=== PATIENT | female | born 1960 | race Caucasian/White ===

== ENCOUNTER 2020-07-03 07:01 | Day surgery (SDC) | payer OTHER, SELFPAY ==
[2020-06-27 16:58] VITALS: BMI 30.7
--- NOTE | 2020-07-02 08:55 | HO.ANESPROP2 ---
Documented by User: Qing Del Castillo 07/02/20 08:56 HPI - Anesthesia Eval Consult details Narrative: 60yo F for Colonoscopy PMFSH Past Medical History Medical History Asthma Environmental allergies GERD (gastroesophageal reflux disease) Hepatitis C antibody test positive IBS (irritable bowel syndrome) Nephrolithiasis Surgical History Surgical History H/O lithotripsy History of esophagogastroduodenoscopy (EGD) Hx laparoscopic cholecystectomy Hx of section Hx of colonoscopy Hx of dilation and curettage Hx of right knee surgery Social History Social History Smoking Status: Former smoker Smoking Quit Date: 1989 Use of substances other than those prescribed or required for medical reasons: No Advance Directives: No Advance Directives Information Provided: No Advance Directives on File: No Meds Allergies Allergy/AdvReac Type Severity Reaction Status Date / Time cefaclor [From Ceclor] Allergy Hives Verified 07/03/20 07:10 codeine Allergy Nausea and Verified 07/03/20 07:10 Vomiting erythromycin base Allergy Hives Verified 07/03/20 07:10 gentamicin Allergy Hives Verified 07/03/20 07:10 moxifloxacin [From Avelox] Allergy Hives Verified 07/03/20 07:10 sulfamethoxazole Allergy Hives Verified 07/03/20 07:10 [From Bactrim] trimethoprim [From Bactrim] Allergy Hives Verified 07/03/20 07:10 Home Medications Medication Instructions Recorded Confirmed Last Taken Type albuterol sulfate 1 - 2 puff PO Q4-6H PRN 06/27/20 06/27/20 Unknown History amlodipine 1 tab PO BEDTIME 06/27/20 06/27/20 07/03/20 05:30 History cetirizine [Zyrtec] 10 mg PO DAILY 06/27/20 06/27/20 07/03/20 05:30 History cholecalciferol (vitamin D3) 50 mcg PO DAILY 06/27/20 06/27/20 Unknown History [Vitamin D3] epinephrine IM DIRECTED 06/27/20 Unknown History fluticasone propionate [Flonase] 1 spray INTRANASAL DAILY 06/27/20 06/27/20 Unknown History hydrochlorothiazide 1 tab PO DAILY 06/27/20 06/27/20 Unknown History losartan 1 tab PO DAILY 06/27/20 06/27/20 Unknown History multivitamin 1 tab PO DAILY 06/27/20 06/27/20 Unknown History omeprazole 1 cap PO DAILY 06/27/20 06/27/20 07/03/20 05:30 History potassium citrate 10 meq PO TID 06/27/20 06/27/20 Unknown History Exam Exam Date and Time: July 02, 2020 0855 Height,Weight and Vital Signs: Height 5 ft 6 in Weight 86.183 kg Assessment and Plan Assessment Anesthesia Assessment: Chart Reviewed Documented by User: Paxton Cook 07/03/20 07:32 [facility] Past Medical History Medical History Asthma Environmental allergies GERD (gastroesophageal reflux disease) Hepatitis C antibody test positive IBS (irritable bowel syndrome) Nephrolithiasis Surgical History Surgical History H/O lithotripsy History of esophagogastroduodenoscopy (EGD) Hx laparoscopic cholecystectomy Hx of section Hx of colonoscopy Hx of dilation and curettage Hx of right knee surgery Social History Social History Smoking Status: Former smoker Smoking Quit Date: 1989 Use of substances other than those prescribed or required for medical reasons: No Advance Directives: No Advance Directives Information Provided: No Advance Directives on File: No Meds Allergies Allergy/AdvReac Type Severity Reaction Status Date / Time cefaclor [From Ceclor] Allergy Hives Verified 07/03/20 07:10 codeine Allergy Nausea and Verified 07/03/20 07:10 Vomiting erythromycin base Allergy Hives Verified 07/03/20 07:10 gentamicin Allergy Hives Verified 07/03/20 07:10 moxifloxacin [From Avelox] Allergy Hives Verified 07/03/20 07:10 sulfamethoxazole Allergy Hives Verified 07/03/20 07:10 [From Bactrim] trimethoprim [From Bactrim] Allergy Hives Verified 07/03/20 07:10 Home Medications Medication Instructions Recorded Confirmed Last Taken Type albuterol sulfate 1 - 2 puff PO Q4-6H PRN 06/27/20 06/27/20 Unknown History amlodipine 1 tab PO BEDTIME 06/27/20 06/27/20 07/03/20 05:30 History cetirizine [Zyrtec] 10 mg PO DAILY 06/27/20 06/27/20 07/03/20 05:30 History cholecalciferol (vitamin D3) 50 mcg PO DAILY 06/27/20 06/27/20 Unknown History [Vitamin D3] epinephrine IM DIRECTED 06/27/20 Unknown History fluticasone propionate [Flonase] 1 spray INTRANASAL DAILY 06/27/20 06/27/20 Unknown History hydrochlorothiazide 1 tab PO DAILY 06/27/20 06/27/20 Unknown History losartan 1 tab PO DAILY 06/27/20 06/27/20 Unknown History multivitamin 1 tab PO DAILY 06/27/20 06/27/20 Unknown History omeprazole 1 cap PO DAILY 06/27/20 06/27/20 07/03/20 05:30 History potassium citrate 10 meq PO TID 06/27/20 06/27/20 Unknown History Exam Airway Mallampati Class: I TM Dist: >3cm Neck ROM: Full
[2020-07-03 07:25] VITALS: BP 139/87; PULSE 90; RESP 18; TEMP 36.1; O2SAT 94
[2020-07-03] MEDS: Lactated Ringers 1,000 ML 100 ML IVCONT (07:38)
--- NOTE | 2020-07-03 08:05 | MHC.SHP ---
Pre-Procedural Eval Section B Chief Complaint: screening Details of Present Illness: screening Relevant Family History (Specify if Yes): Yes Relevant Social History: None Present Medications: see Short Stay Collaborative assessment Medical History: No relevant PMH History of Previous Operations: No relevant previous surgery Allergies: Allergies Allergy/AdvReac Type Severity Reaction Status Date / Time cefaclor [From Ceclor] Allergy Hives Verified 07/03/20 07:10 codeine Allergy Nausea and Verified 07/03/20 07:10 Vomiting erythromycin base Allergy Hives Verified 07/03/20 07:10 gentamicin Allergy Hives Verified 07/03/20 07:10 moxifloxacin [From Avelox] Allergy Hives Verified 07/03/20 07:10 sulfamethoxazole Allergy Hives Verified 07/03/20 07:10 [From Bactrim] trimethoprim [From Bactrim] Allergy Hives Verified 07/03/20 07:10 Review of Systems Sugical H&P ROS: Negative: Constitution, Cardiovascular, Respiratory, Neurological, Psychiatric, Hem-Onc, Allergic/Immunologic, Gastrointestinal, Genitourinary, Musculoskeletal, Integumentary, Endocrine and Eyes/Ears/Nose/Throat Exam Surgical H&P Exam: Normal: HEENT, Normal: Heart, Normal: Lungs, Normal: Extremities, Normal: Abdomen, Normal: Skin and Normal: Neurological Plan Diagnosis/Plan: Unchanged I have reviewed the history and physical and performed a pertinent physical examination on my patient. No changes have occurred unless specified.
[2020-07-03 08:41] VITALS: BP 107/65; PULSE 70; RESP 14; TEMP 36.7; O2SAT 97
--- NOTE | 2020-07-03 08:44 | PM.OP ---
Brief Operative Note Date of Service: 07/03/20 Pre-op diagnosis: screening Post-op diagnosis: same (colon polyp) Procedure: colonoscopy Surgeon: Fernando Poole Estimated blood loss (mL): 2 Pathology: other (polyp 20 cm) Condition: stable Disposition: PACU
[2020-07-03 08:56] VITALS: BP 129/79; PULSE 71; RESP 16; O2SAT 98
[2020-07-03 09:04] VITALS: BP 125/82; PULSE 74; RESP 16; O2SAT 99
--- NOTE | 2020-07-03 12:31 | OP_ITS ---
cc: Demetria Rivera MD~ SURGEON: Fernando Poole MD INDICATIONS: Colon cancer screening and prior history of adenomatous colon polyps. PREOPERATIVE DIAGNOSIS: POSTOPERATIVE DIAGNOSIS: PROCEDURE PERFORMED: Colonoscopy to the terminal ileum with biopsy. ESTIMATED BLOOD LOSS: COMPLICATIONS: ANESTHESIA: ASSISTANTS: SPECIMENS: MEDICATIONS: Monitored anesthesia care. DESCRIPTION OF PROCEDURE: History and physical performed. The risks and benefits of the procedure were explained to the patient. Informed consent was obtained. The patient was placed in the left lateral decubitus position. A digital rectal exam was performed and was found to be normal. The Olympus pediatric video colonoscope was introduced into the rectum and advanced to the cecum without difficulty. The cecum was identified by transillumination, palpation, and identification of ileocecal valve. Examination was performed and the scope was removed. She tolerated the procedure well and was taken to recovery area in stable condition. FINDINGS: The terminal ileum was examined and appeared normal. The visualized colonic mucosa was normal. The quality of the prep was good. At 20 cm from the anal verge, was a less than 5 mm polyp, which was removed with biopsy forceps. No other polyps were identified. Retroflexed examination showed small internal hemorrhoids and some hypertrophic anal papillae. IMPRESSION: Colon polyp. RECOMMENDATIONS: Follow up biopsy results. MD ABIODUN Luque/MODL / [id number] MTDD
== END 2020-07-03 09:30 | disposition home or self-care (01) ==
PROVIDERS: Internal Medicine Gastroenterology; PCP Internal Medicine; Visit Provider Anesthesiology
PROC: 0DJD8ZZ Inspection of Lower Intestinal Tract, Via Natural or Artificial Opening Endoscopic (ICD-10-PCS; CPT 45378; principal; 2020-07-03 08:00)
DX: Z12.11 Encounter for screening for malignant neoplasm of colon (principal); Z86.010 Personal history of colon polyps; K63.5 Polyp of colon; K64.8 Other hemorrhoids; K62.89 Other specified diseases of anus and rectum; K21.9 Gastro-esophageal reflux disease without esophagitis; K58.9 Irritable bowel syndrome, unspecified; J45.909 Unspecified asthma, uncomplicated; Z79.51 Long term (current) use of inhaled steroids; Z79.899 Other long term (current) drug therapy; Z88.2 Allergy status to sulfonamides; Z88.8 Allergy status to other drugs, medicaments and biological substances; Z90.49 Acquired absence of other specified parts of digestive tract; Z87.442 Personal history of urinary calculi; Z87.891 Personal history of nicotine dependence
CPT/HCPCS: 45380; 88305

== ENCOUNTER 2023-10-16 09:02 | Outpatient (REF) | payer OTHER, SELFPAY ==
--- NOTE | ~2023-10-16 | US_ITS ---
EXAMINATION: US ABDOMEN COMPLETE CLINICAL INFORMATION: Right upper quadrant pain. COMPARISON: Ultrasound abdomen complete 07/23/2018. TECHNIQUE: Real-time imaging of the abdominal viscera. FINDINGS: PANCREAS: The pancreas appears unremarkable, without masses or ductal dilatation, with the exception of the tail which is obscured by bowel gas. ABDOMINAL AORTA: The proximal, mid, and distal segments are normal in caliber. INFERIOR VENA CAVA: Visualized portions are normal. LIVER: The liver is normal in size. The liver contour is normal. There is diffuse increased liver parenchymal echogenicity, consistent with hepatic steatosis. No focal hepatic lesion. There is no intrahepatic biliary duct dilatation seen. GALLBLADDER: Surgically absent. COMMON BILE DUCT: Normal in caliber measuring 0.7 cm in diameter. RIGHT KIDNEY: Two echogenic foci are noted in the mid and lower pole measuring 4 and 2 mm, respectively, consistent with nonobstructing calculi. No hydronephrosis or focal parenchymal lesions. The kidney measures 12.5 cm in maximum dimension. LEFT KIDNEY: An echogenic mid and lower pole foci are noted measuring 5 and 4 mm consistent with nonobstructing calculi. No hydronephrosis or focal parenchymal lesions. The kidney measures 11.2 cm in maximum dimension. SPLEEN: Normal. The spleen measures 10.7 cm in maximum dimension. FREE FLUID: None. US/US abdomen complete IMPRESSION: 1. Hepatic steatosis. 2. Bilateral nonobstructing renal calculi.
== END 2023-10-16 09:03 | disposition home or self-care (01) ==
LOC: HO.US 09:02
PROVIDERS: PCP Physician Assistant Medical; Visit Provider Physician Assistant Medical
DX: R10.11 Right upper quadrant pain (principal); R14.0 Abdominal distension (gaseous)
CPT/HCPCS: 76700

== ENCOUNTER 2024-01-19 11:25 | Outpatient (REF) | payer OTHER, SELFPAY ==
[2024-01-19 14:00] LABS: Alanine Aminotransferase 17 U/L (0-31); Albumin Level 4.5 g/dL (3.5-5.0); Alkaline Phosphatase 68 U/L (39-117); Aspartate Amino Transferase 16 U/L (5-31); Bilirubin Direct 0.2 mg/dL (0.0-0.5); Total Protein 7.3 g/dL (6.5-8.0)
[2024-01-27 03:44] LABS: FIB-ALT 16 U/L (6-29); FIB-Alpha-2-Macroglobulin 166 mg/dL (106-279); FIB-Apolipoprotein A1 211 mg/dL (101-198); FIB-GGT 27 U/L (3-65); FIB-Haptoglobin 106 mg/dL (43-212); FIB-Total Bilirubin 0.9 mg/dL (0.2-1.2); Liver Fibrosis Score 0.14; Liver Fibrosis Stage F0; Nec Inflam Act Grade A0; Nec Inflam Act Score 0.04
== END 2024-01-19 11:26 | disposition home or self-care (01) ==
LOC: HO.10HDL 11:25
PROVIDERS: Visit Provider Internal Medicine Gastroenterology
DX: K76.0 Fatty (change of) liver, not elsewhere classified (principal)
CPT/HCPCS: 36415; 80076; 81596

== ENCOUNTER 2024-03-01 07:28 | Day surgery (SDC) | payer OTHER, SELFPAY ==
[2024-02-26 14:22] VITALS: BMI 32.6
--- NOTE | 2024-02-29 13:27 | P.CONAN_ITS ---
Documented by User: Qing Del Castillo NP 02/29/24 13:27 HPI - Anesthesia Eval Consult details Narrative: 63yo F for ?Upper Endoscopy [facility] Past Medical History Medical History Arrhythmia Celiac disease Sleep apnea HTN (hypertension) Venous (peripheral) insufficiency Asthma Hepatitis C antibody test positive Nephrolithiasis GERD (gastroesophageal reflux disease) IBS (irritable bowel syndrome) Environmental allergies Surgical History Surgical History Status post phlebectomy H/O lithotripsy Hx laparoscopic cholecystectomy Hx of right knee surgery Hx of dilation and curettage Hx of section Hx of colonoscopy History of esophagogastroduodenoscopy (EGD) Social History Social History Patient Tobacco Use Status: Former Tobacco user Tobacco use type: Cigarette Use of substances other than those prescribed or required for medical reasons: No Are you DNR?: No Advance Directives: No Advance Directives Information Provided: Yes Advance Directives on File: No Recently lost weight without trying: No Nutrition Risks: No Nutritional Risk Patient : No Meds Allergies Allergy/AdvReac Type Severity Reaction Status Date / Time cefaclor [From Ceclor] Allergy Hives Verified 07/03/20 07:10 codeine Allergy Nausea and Verified 07/03/20 07:10 Vomiting erythromycin base Allergy Hives Verified 07/03/20 07:10 gentamicin Allergy Hives Verified 07/03/20 07:10 moxifloxacin [From Avelox] Allergy Hives Verified 07/03/20 07:10 sulfamethoxazole Allergy Hives Verified 07/03/20 07:10 [From Bactrim] trimethoprim [From Bactrim] Allergy Hives Verified 07/03/20 07:10 Home Medications ?Medication ?Instructions ?Recorded ?Confirmed ?Last Taken ?Type amlodipine 5 mg tablet 1 tab PO DAILY 06/27/20 02/26/24 03/01/24 History cetirizine 10 mg capsule (Zyrtec) 10 mg PO DAILY 06/27/20 02/26/24 07/03/20 05:30 History epinephrine 0.3 mg/0.3 mL IM DIRECTED anaphylaxis 06/27/20 Unknown History injection, auto-injector fluticasone propionate 50 1 spray intranasal DAILY 06/27/20 02/26/24 Unknown His tory mcg/actuation nasal spray,suspension hydrochlorothiazide 25 mg tablet 1 tab PO DAILY 06/27/20 02/26/24 Unknown History multivitamin 1 tab PO DAILY 06/27/20 02/26/24 Unknown History omeprazole 20 mg capsule,delayed 1 cap PO DAILY 06/27/20 02/26/24 03/01/24 History release potassium citrate 10 mEq (1,080 10 meq PO DAILY 06/27/20 02/26/24 Unknown History mg) tablet,extended release Lactobacillus acidophilus 250 500 mmu cells PO TID 02/26/24 02/26/24 Unknown History million cell capsule (Probiotic Acidophilus) cetirizine 10 mg tablet (Zyrtec) 10 mg PO DAILY 02/26/24 02/26/24 03/01/24 History cholecalciferol (vitamin D3) 25 25 mcg PO DAILY 02/26/24 02/26/24 Unknown History mcg (1,000 unit) tablet (Vitamin D3) losartan 25 mg tablet 25 mg PO DAILY 02/26/24 02/26/24 Unknown History Exam Height,Weight and Vital Signs: Height 5 ft 6 in Weight 91.626 kg Assessment and Plan Assessment Anesthesia Assessment: Chart Reviewed Documented by User: Nancy Solis MD 03/01/24 09:10 [facility] Past Medical History Medical History Arrhythmia Celiac disease Sleep apnea HTN (hypertension) Venous (peripheral) insufficiency Asthma Hepatitis C antibody test positive Nephrolithiasis GERD (gastroesophageal reflux disease) IBS (irritable bowel syndrome) Environmental allergies Family History Family history of problems with anesthesia: No Surgical History Surgical History Status post phlebectomy H/O lithotripsy Hx laparoscopic cholecystectomy Hx of right knee surgery Hx of dilation and curettage Hx of section Hx of colonoscopy History of esophagogastroduodenoscopy (EGD) History of Problems with Anesthesia: Yes Social History Social History Patient Tobacco Use Status: Former Tobacco user Tobacco use type: Cigarette Use of substances other than those prescribed or required for medical reasons: No Are you DNR?: No Advance Directives: No Advance Directives Information Provided: Yes Advance Directives on File: No Recently lost weight without trying: No Nutrition Risks: No Nutritional Risk Patient : No Meds Allergies Allergy/AdvReac Type Severity Reaction Status Date / Time cefaclor [From Ceclor] Allergy Hives Verified 07/03/20 07:10 codeine Allergy Nausea and Verified 07/03/20 07:10 Vomiting erythromycin base Allergy Hives Verified 07/03/20 07:10 gentamicin Allergy Hives Verified 07/03/20 07:10 moxifloxacin [From Avelox] Allergy Hives Verified 07/03/20 07:10 sulfamethoxazole Allergy Hives Verified 07/03/20 07:10 [From Bactrim] trimethoprim [From Bactrim] Allergy Hives Verified 07/03/20 07:10 Home Medications ?Medication ?Instructions ?Recorded ?Confirmed ?Last Taken ?Type amlodipine 5 mg tablet 1 tab PO DAILY 06/27/20 02/26/24 03/01/24 History cetirizine 10 mg capsule (Zyrtec) 10 mg PO DAILY 06/27/20 02/26/24 07/03/20 05:30 History epinephrine 0.3 mg/0.3 mL IM DIRECTED anaphylaxis 06/27/20 Unknown History injection, auto-injector fluticasone propionate 50 1 spray intranasal DAILY 06/27/20 02/26/24 Unknown History mcg/actuation nasal spray,suspension hydrochlorothiazide 25 mg tablet 1 tab PO DAILY 06/27/20 02/26/24 Unknown History multivitamin 1 tab PO DAILY 06/27/20 02/26/24 Unknown History omeprazole 20 mg capsule,delayed 1 cap PO DAILY 06/27/20 02/26/24 03/01/24 History release potassium citrate 10 mEq (1,080 10 meq PO DAILY 06/27/20 02/26/24 Unknown History mg) tablet,extended release Lactobacillus acidophilus 250 500 mmu cells PO TID 02/26/24 02/26/24 Unknown History million cell capsule (Probiotic Acidophilus) cetirizine 10 mg tablet (Zyrtec) 10 mg PO DAILY 02/26/24 02/26/24 03/01/24 History cholecalciferol (vitamin D3) 25 25 mcg PO DAILY 02/26/24 02/26/24 Unknown History mcg (1,000 unit) tablet (Vitamin D3) losartan 25 mg tablet 25 mg PO DAILY 02/26/24 02/26/24 Unknown History Exam Airway Mallampati Class: II TM Dist: >3cm Neck ROM: Full Heart: rrr Lungs: cta Assessment and Plan Assessment Anesthesia Assessment: Anesthesia Plan Discussed Final Anesthetic Review Family History of Problems with Anesthesia: No History of Problems with Anesthesia: Yes ASA Class: III Final Preanesthetic Review: No Changes in Pt Med Stat, Meds/Allgs Chart Reviewed, Consent Obtained/Reviewed and Anes Risks/Benef Reviewed Patient Risk: Intermediate Procedure Risk: Low Anesthetic Plan Anesthetic Plan: MAC: Disposition: Standard PACU
[2024-03-01 08:05] VITALS: BMI 33.3
[2024-03-01 08:07] VITALS: BP 145/88; PULSE 82; RESP 16; TEMP 37; O2SAT 94
[2024-03-01] MEDS: Lactated Ringers 1,000 ML 100 ML IVCONT (08:22)
--- NOTE | 2024-03-01 09:07 | MHC.SHP ---
Pre-Procedural Eval Section A - 24 Hr Update-Section A only Date of Service: 03/01/24 Section B - Complete if H&P > 30 days Chief Complaint: Celiac disease Details of Present Illness: see H&P no changes Relevant Family History (Specify if Yes): No Relevant Social History: None Present Medications: see Short Stay Collaborative assessment Medical History: No relevant PMH History of Previous Operations: No relevant previous surgery Allergies: Allergies Allergy/AdvReac Type Severity Reaction Status Date / Time cefaclor [From Ceclor] Allergy Hives Verified 07/03/20 07:10 codeine Allergy Nausea and Verified 07/03/20 07:10 Vomiting erythromycin base Allergy Hives Verified 07/03/20 07:10 gentamicin Allergy Hives Verified 07/03/20 07:10 moxifloxacin [From Avelox] Allergy Hives Verified 07/03/20 07:10 sulfamethoxazole Allergy Hives Verified 07/03/20 07:10 [From Bactrim] trimethoprim [From Bactrim] Allergy Hives Verified 07/03/20 07:10 Review of Systems Sugical H&P ROS: Negative: Constitution, Cardiovascular, Respiratory, Neurological, Psychiatric, Hem-Onc, Allergic/Immunologic, Gastrointestinal, Genitourinary, Musculoskeletal, Integumentary, Endocrine and Eyes/Ears/Nose/Throat Exam Surgical H&P Exam: Normal: HEENT, Normal: Heart, Normal: Lungs, Normal: Extremities, Normal: Abdomen, Normal: Skin and Normal: Neurological Plan Diagnosis/Plan: Unchanged I have reviewed the history and physical and performed a pertinent physical examination on my patient. No changes have occurred unless specified. Time Spent With Patient Time: Total time managing care of this patient today ____ minutes.
[2024-03-01 09:40] VITALS: BP 139/83; PULSE 82; RESP 16; TEMP 36.6; O2SAT 98
[2024-03-01 09:58] VITALS: BP 130/82; PULSE 78; RESP 16; TEMP 36.6; O2SAT 100
--- NOTE | 2024-03-01 09:59 | HO.ANESPROP2 ---
[facility] Past Medical History Medical History Arrhythmia Celiac disease Sleep apnea HTN (hypertension) Venous (peripheral) insufficiency Asthma Hepatitis C antibody test positive Nephrolithiasis GERD (gastroesophageal reflux disease) IBS (irritable bowel syndrome) Environmental allergies Family History Family history of problems with anesthesia: No Surgical History Surgical History Status post phlebectomy H/O lithotripsy Hx laparoscopic cholecystectomy Hx of right knee surgery Hx of dilation and curettage Hx of section Hx of colonoscopy History of esophagogastroduodenoscopy (EGD) History of Problems with Anesthesia: Yes Social History Social History Patient Tobacco Use Status: Former Tobacco user Tobacco use type: Cigarette Use of substances other than those prescribed or required for medical reasons: No Are you DNR?: No Advance Directives: No Advance Directives Information Provided: Yes Advance Directives on File: No Recently lost weight without trying: No Nutrition Risks: No Nutritional Risk Patient : No Meds Allergies Allergy/AdvReac Type Severity Reaction Status Date / Time cefaclor [From Ceclor] Allergy Hives Verified 07/03/20 07:10 codeine Allergy Nausea and Verified 07/03/20 07:10 Vomiting erythromycin base Allergy Hives Verified 07/03/20 07:10 gentamicin Allergy Hives Verified 07/03/20 07:10 moxifloxacin [From Avelox] Allergy Hives Verified 07/03/20 07:10 sulfamethoxazole Allergy Hives Verified 07/03/20 07:10 [From Bactrim] trimethoprim [From Bactrim] Allergy Hives Verified 07/03/20 07:10 Active Medications: Current Medications Albuterol Sulfate (Albuterol Sulfate (0.083%) 2.5 Mg/3 Ml Vial.Neb) 2.5 mg INHALE ONCE PRN PRN Reason: Shortness of Breath/Wheezing Lactated Ringer's (Lr) 1,000 mls @ 100 mls/hr IVCONT .Q10H JUMANA Last Admin: 03/01/24 08:22 Dose: 100 mls/hr Naloxone HCl (Naloxone Hcl 0.4 Mg/Ml Vial) 0.04 mg IVPUSH Q5M PRN PRN Reason: Excessive sedation or RR < 8 Home Medications ?Medication ?Instructions ?Recorded ?Confirmed ?Last Taken ?Type amlodipine 5 mg tablet 1 tab PO DAILY 06/27/20 02/26/24 03/01/24 History cetirizine 10 mg capsule (Zyrtec) 10 mg PO DAILY 06/27/20 02/26/24 07/03/20 05:30 History epinephrine 0.3 mg/0.3 mL IM DIRECTED anaphylaxis 06/27/20 Unknown History injection, auto-injector fluticasone propionate 50 1 spray intranasal DAILY 06/27/20 02/26/24 Unknown History mcg/actuation nasal spray,suspension hydrochlorothiazide 25 mg tablet 1 tab PO DAILY 06/27/20 02/26/24 Unknown History multivitamin 1 tab PO DAILY 06/27/20 02/26/24 Unknown History omeprazole 20 mg capsule,delayed 1 cap PO DAILY 06/27/20 02/26/24 03/01/24 History release potassium citrate 10 mEq (1,080 10 meq PO DAILY 06/27/20 02/26/24 Unknown History mg) tablet,extended release Lactobacillus acidophilus 250 500 mmu cells PO TID 02/26/24 02/26/24 Unknown History million cell capsule (Probiotic Acidophilus) cetirizine 10 mg tablet (Zyrtec) 10 mg PO DAILY 02/26/24 02/26/24 03/01/24 History cholecalciferol (vitamin D3) 25 25 mcg PO DAILY 02/26/24 02/26/24 Unknown History mcg (1,000 unit) tablet (Vitamin D3) losartan 25 mg tablet 25 mg PO DAILY 02/26/24 02/26/24 Unknown History Exam Height,Weight and Vital Signs: Height 5 ft 6 in Weight 93.497 kg Last Vital Signs Temp 98 F 03/01/24 09:40 Pulse 82 03/01/24 09:40 Resp 16 03/01/24 09:40 BP 139/83 03/01/24 09:40 Pulse Ox 98 03/01/24 09:40 O2 Del Method Room Air 03/01/24 09:40 Airway Mallampati Class: III TM Dist: >3cm Neck ROM: Full Heart: RRR Lungs: CTA Assessment and Plan Assessment Anesthesia Assessment: Anesthesia Plan Discussed and Chart Reviewed Final Anesthetic Review Family History of Problems with Anesthesia: No History of Problems with Anesthesia: Yes NPO: Yes ASA Class: III Final Preanesthetic Review: Meds/Allgs Chart Reviewed, Consent Obtained/Reviewed and Anes Risks/Benef Reviewed Patient Risk: Low Procedure Risk: Low Anesthetic Plan Anesthetic Plan: MAC: Disposition: Standard PACU
--- NOTE | 2024-03-01 10:12 | OP_ITS ---
DATE OF SERVICE: 03/01/2024 SURGEON: Fernando Poole MD INDICATIONS: Celiac disease. PREOPERATIVE DIAGNOSIS: POSTOPERATIVE DIAGNOSIS: PROCEDURE PERFORMED: Upper endoscopy with biopsy. ESTIMATED BLOOD LOSS: COMPLICATIONS: ANESTHESIA: Monitored anesthesia care. ASSISTANTS: SPECIMENS: DESCRIPTION OF PROCEDURE: History and physical performed. The risks and benefits of the procedure were explained to the patient. Informed consent was obtained. The patient was placed in the left lateral decubitus position. The Olympus video gastroscope was introduced into the esophagus, stomach, and duodenum. Examination was performed. The scope was removed. She tolerated the procedure well and was returned to recovery area in stable condition. FINDINGS: Esophagus: The esophagus showed an irregular EG junction. This was biopsied. There was no esophagitis. Stomach: The stomach showed several small benign-appearing polyps in the body and fundus consistent with fundic gland polyps. Antral biopsies were obtained to evaluate for H pylori. There was no gastritis. Duodenum: The duodenum appeared normal. Biopsies were obtained from the 2nd portion and from the bulb to evaluate for celiac disease. IMPRESSION: Celiac disease. RECOMMENDATION: Follow up biopsy results. MD ABIODUN Luque/ADITYA / [id number]
--- NOTE | 2024-03-01 10:39 | HO.POSTANES ---
Post Anesthesia Evaluation Post Anesthesia Evaluation Date of Service: 03/01/24 Vital Signs: Vital Signs Temp Pulse Resp BP Pulse Ox O2 Del Method 03/01/24 09:58 98 F 78 16 130/82 100 Room Air 03/01/24 09:40 98 F 82 16 139/83 98 Room Air 03/01/24 08:07 98.6 F 82 16 145/88 H 94 Room Air Anesthesia: Monitored Mental Status: Awake Pain Control: Satisfactory Nausea/Vomiting: None Hydration: Adequate Anesthesia-Related Issues: No Anes. Related Issues
== END 2024-03-01 10:26 | disposition home or self-care (01) ==
PROVIDERS: PCP Physician Assistant Medical; Visit Provider Internal Medicine Gastroenterology
PROC: 0DJ08ZZ Inspection of Upper Intestinal Tract, Via Natural or Artificial Opening Endoscopic (ICD-10-PCS; CPT 43235; principal; 2024-03-01 09:20)
DX: K90.0 Celiac disease (principal); I10 Essential (primary) hypertension; K58.9 Irritable bowel syndrome, unspecified; K21.9 Gastro-esophageal reflux disease without esophagitis; K76.0 Fatty (change of) liver, not elsewhere classified; J45.909 Unspecified asthma, uncomplicated; Z79.51 Long term (current) use of inhaled steroids; Z79.899 Other long term (current) drug therapy; Z88.1 Allergy status to other antibiotic agents; Z88.2 Allergy status to sulfonamides; Z88.5 Allergy status to narcotic agent; Z90.49 Acquired absence of other specified parts of digestive tract; Z98.890 Other specified postprocedural states; Z87.891 Personal history of nicotine dependence
CPT/HCPCS: 43239; 88305; 88313; 88342; J1596; J2003; J2250; J2704

== ENCOUNTER 2024-08-08 15:00 | Outpatient (AMB) | payer BC, SELFPAY ==
--- NOTE | 2024-08-08 15:06 | A.OFFPC_ITS ---
Vital Signs 08/08/24 15:08 Height 5 ft 4.96 in Weight 194 lb 4 oz BMI 32.4 BP 120/78 Blood Pressure Location Lt brachial Position Sitting Pulse 86 Pulse Source Pulse Oximeter Temp 98.0 F Temp Source Temporal Artery Scan Pulse Oximetry (%) 97 Oxygen Delivery Method Room Air Intake Visit Reasons: new patient Intake Note: Patient is a new patient here to establish care for HTN, Cilica Disease, Seasonal allergies, Hx of kidney stones, High Cholesterol, High triglycerides, Arthritis, Depression, Anxiety. [facility]. Medical records have been requested and have not received. 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 per policy Accompanied by: Self / Same As Patient Allergies shellfish derived Allergy (Mild, Verified 08/08/24 15:39) Anaphylaxis cefaclor [From Ceclor] Allergy (Verified 08/08/24 15:37) Hives codeine Allergy (Verified 08/08/24 15:37) Nausea and Vomiting erythromycin base Allergy (Verified 08/08/24 15:37) Hives gentamicin Allergy (Verified 08/08/24 15:37) Hives moxifloxacin [From Avelox] Allergy (Verified 08/08/24 15:37) Hives sulfamethoxazole [From Bactrim] Allergy (Verified 08/08/24 15:37) Hives trimethoprim [From Bactrim] Allergy (Verified 08/08/24 15:37) Hives tree nuts Allergy (Mild, Uncoded 08/08/24 15:39) Anaphylaxis Medication List - Last Reconciled 08/08/24 by Melissa Elias PA-C albuterol sulfate 90 mcg/actuation 1 inh inhalation QID amlodipine 1 tab PO DAILY cetirizine (Zyrtec) 10 mg PO DAILY cholecalciferol (vitamin D3) (Vitamin D3) 25 mcg PO DAILY epinephrine IM DIRECTED fluticasone propionate 50 mcg/actuation 1 spray intranasal DAILY hydrochlorothiazide 1 tab PO DAILY losartan 50 mg PO DAILY multivitamin 1 tab PO DAILY omeprazole 1 cap PO DAILY potassium citrate ER 10 mEq PO TID Tobacco use date assessed: 08/08/24 Dental Screening Dental Screen Date: 08/08/24 Did you have a dental visit in the last 12 months?: Yes Did you have a dental problem in the last 6 months where you did not have access to dental care?: No Was dental information given to patient?: Patient has dentist HPI new patient HPI Details 64-year-old female coming to the office for the 1st time.?She recently had Endoscopy completed 02/[address] Poole recommending follow up for celiac. Presenting to establish care with myself following a change of insurance coverage. Her past medical history includes essential hypertension, currently managed with amlodipine; hypercholesterolemia; gastroesophageal reflux disease; and asthma managed with albuterol as needed. The patient experiences anxiety and depression, with her psychological state exacerbated by caring for her with severe liver disease, which has been emotionally and physically taxing. She has been diagnosed with celiac disease, confirmed via endoscopy and biopsy earlier this year, following the suggestion from a therapist who identified inflammation linked to her hip pain. IBS is suggested to have shared symptoms with celiac disease. Her most recent mammogram occurred in the fall of last year, and she is attempting to establish gynecological care locally. Pertinent laboratory findings indicate prediabetes and slightly elevated cholesterol, managed presently via dietary adjustments yet complicated by celiac dietary restrictions. 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 November 2024 [facility] Medical History Arrhythmia Celiac disease Sleep apnea HTN (hypertension) Venous (peripheral) insufficiency Asthma Hepatitis C antibody test positive Nephrolithiasis GERD (gastroesophageal reflux disease) IBS (irritable bowel syndrome) Environmental allergies Surgical History Status post phlebectomy H/O lithotripsy Hx laparoscopic cholecystectomy Hx of right knee surgery Hx of dilation and curettage Hx of section Hx of colonoscopy History of esophagogastroduodenoscopy (EGD) Family History Other Substance use disorder Social History Housing: House Alcohol intake: current Alcohol intake frequency: a few times a month Alcohol type: wine Patient Tobacco Use Status: Former Tobacco user Tobacco use type: Cigarette e-Cigarette/Vaping Use: Never Used Second Hand Smoke Exposure: Yes service: No Current occupational status: employed Current occupation: [employer] Cognitive needs: No Hearing needs: No Vision needs: Yes (Glasses) Questionnaire PHQ-9 Over the last 2 weeks, how often have you been bothered by any of the following problems? 1. Little interest or pleasure in doing things: several days 2. Feeling down, depressed, or hopeless: several days 3. Trouble falling or staying asleep, or sleeping too much: several days 4. Feeling tired or having little energy: several days 5. Poor appetite or overeating: several days 6. Feeling bad about yourself - or that you are a failure or have let yourself or your family down: not at all 7. Trouble concentrating on things, such as reading the newspaper or watching television: several days 8. Moving or speaking so slowly that other people could have noticed. Or the opposite - being so fidgety or restless that you have been moving around a lot more than usual: not at all 9. Thoughts that you would be better off or of hurting yourself in some way: not at all Total score: 6 Depression Screening Interpretation: Positive (referral placed for counseling) Depression Screening Follow-up: Existing condition Depression Screening Done: Yes Source: Developed by Drs. Cristobal Wu, Nasrin Plaza, Jamarcus Michael and colleagues, with an educational fadi from [employer]. Thrive Questionnaire Date Thrive assessed: 08/01/24 I am a: Patient What is your living situation today?: I have a steady place to live Within the past 12 months, did the food you bought not last and you didn't have the money to get more?: Never true Within the past 12 months, did you worry whether your food would run out before you got money to buy more?: Never true Do you have trouble paying for medicines?: No Do you have trouble getting transportation to medical appointments?: No Do you have trouble paying your heating and electricity bill?: No Do you have trouble taking care of your child, family member or friend?: No Do you have trouble with day-to-day activities such as bathing, preparing meals, shopping, managing finances, etc.?: No Are you currently unemployed and looking for a job?: No Are you interested in more education?: No Please select the resources that you would like help with: None Currently or been in a relationship where the following occur: No concerns reported THRIVE Score: 0 AUDIT C Alcohol Use Questionnaire (AUDIT-C) 1. How often do you have a drink containing alcohol?: 2-4 times a month 2. How many drinks containing alcohol do you have on a typical day when you are drinking?: 1 or 2 3. How often do you have six or more drinks on one occasion?: Never Total Score: 2 KAMAR-7 AMB Questionnaire KAMAR-7 Date KAMAR - 7 assessed: 08/08/24 Feeling nervous, anxious, or on edge: 1 = Several days Not being able to stop or control worryin = Several days Worrying too much about different things: 1 = Several days Trouble relaxin = Several days Being so restless that it is hard to sit still: 0 = Not at all Becoming easily annoyed or irritable: 1 = Several days Feeling afraid as if something awful might happen: 0 = Not at all Total KAMAR-7 score (0-4 normal; 5-9 mild; 10-14 moderate; 15-21 severe): 5 Source: Developed by Drs. Cristobal Wu, Nasrin Plaza, Jamarcus Michael and colleagues, with an educational fadi from [employer]. Review of Systems Const Denies body aches, Denies chills, Denies fever(s), Denies headache(s) and Denies poor appetite Eyes Reports no additional complaints ENT Denies dysphagia, Denies dizziness, Denies headache(s) and Denies odynophagia Card Denies chest pain, Denies syncope, Denies edema, Denies irregular heart rhythm, Denies lightheadedness and Denies dyspnea Resp Denies cough and Denies dyspnea GI Denies abdominal pain, Denies constipation, Denies dysphagia, Denies diarrhea, Denies nausea, Denies odynophagia and Denies vomiting Reports no additional complaints Musc Reports no additional complaints and Denies abnormal gait Skin/Breast Reports system reviewed and no additional complaints, except as documented Neuro Denies abnormal gait, Denies dizziness, Denies syncope and Denies headache(s) Psych Reports no additional complaints Physical exam (Primary Care) Vital Signs: Last Vital Signs Temp 98.0 F 08/08/24 15:08 Pulse 86 08/08/24 15:08 BP 120/78 08/08/24 15:08 Pulse Ox 97 08/08/24 15:08 Oxygen Delivery Method Room Air 08/08/24 15:08 BMI result Body Mass Index 32.4 Tobacco/Smoking Status: Tobacco use Status Tobacco use date assessed 08/08/24 08/08/24 15:15 Patient Tobacco Use Status Former Tobacco user 08/08/24 15:20 Tobacco use type Cigarette 08/08/24 15:20 e-Cigarette/Vaping Use Never Used 08/08/24 15:20 PHQ-9: PHQ-9 Score PHQ-9: Total score 6 08/08/24 15:55 Depression Screening Interpretation: Positive (referral placed for counseling) Depression Screening Follow-up: Existing condition Thrive Assessment: Date of Thrive Assessment Date Thrive assessed 08/01/24 08/08/24 15:15 Currently or been in a relationship where the following occur: No concerns reported Const General: cooperative, healthy appearing, comfortable and no acute distress Orientation/consciousness: patient oriented x3 HENMT Head: Yes normocephalic Ears: hearing grossly normal bilaterally General nose exam: Normal external nose present Eyes General: appearance normal, both eyes and all related structures Conjunctivae: conjunctivae normal Neck Neck: Yes full ROM and Yes no lymphadenopathy Resp Effort & Inspection: normal respiratory effort Auscultation: clear to auscultation bilaterally, no crackles, no rales, no rhonchi and no wheezes Cardio Rate: regular rate Rhythm: regular rhythm Skin General skin exam: no rashes or lesions noted Neuro General: patient oriented x3 Gait exam (Neuro): Normal gait present Extrem General: Yes normal to inspection, Yes full ROM and No edema Psych Affect: normal affect Attitude: cooperative Insight: Good insight present (Psych) Judgement: Good judgement present (Psych) Coding Level of Care Code New Pt Level 4 (90439) Diagnoses HTN (hypertension) I10 GERD (gastroesophageal reflux disease) K21.9 Asthma J45.909 Sleep apnea G47.30 Celiac disease K90.0 Hypercholesterolemia E78.00 Depression F32.A Anxiety F41.9 Assessment & Plan Assessment & Plan (1) HTN (hypertension): Code(s): I10 - Essential (primary) hypertension Category: Medical Plan: Continue on current blood pressure medication. Avoid salt intake and encourage healthy diet and regular exercise. (2) GERD (gastroesophageal reflux disease): Code(s): K21.9 - Gastro-esophageal reflux disease without esophagitis Category: Medical Plan: Avoid trigger foods such as citrus, tomato products, soda, caffeine, spicy foods and other foods that may be irritating to your stomach. Avoid laying flat 3-4 hours after eating and elevate the head of the bed 30 degrees to prevent acid from moving into the esophagus. Continue on Omeprazole (3) Asthma: Code(s): J45.909 - Unspecified asthma, uncomplicated Category: Medical Plan: Asthma currently controlled on present medications. Avoid triggers such as allergies. (4) Sleep apnea: Comment: [facility] wears CPAP Code(s): G47.30 - Sleep apnea, unspecified Category: Medical Plan: Uses CPAP faithfully at least 4 hours a night and benefits from this therapy. Sees [facility]. (5) Celiac disease: Comment: will have joint inflammation/bloating/gas Code(s): K90.0 - Celiac disease Category: Medical Plan: Continue with dietary modification and continue to follow up with GI. (6) Hypercholesterolemia: Code(s): E78.00 - Pure hypercholesterolemia, unspecified Category: Medical Plan: Avoid foods that are high in cholesterol such as red meat, fried foods, eggs and baked goods. Triglyceride goal of less than 150 and LDL goal of less than 100. Last LDL 06/2024 131. (7) Depression: Code(s): F32.A - Depression, unspecified Category: Medical Plan: patient having worsening depression and anxiety referral placed to counseling luciano og. She did decline medical management at this time. (8) Anxiety: Code(s): F41.9 - Anxiety disorder, unspecified Category: Medical Plan: patient having worsening depression and anxiety referral placed to counseling today. She did decline medical management at this time. Plan Careful monitoring of celiac disease symptoms and strict adherence to a gluten- free diet are crucial, and dietary choices are integral for managing prediabetes and minimizing cholesterol. We will continue to emphasize the beneficial effects of lifestyle adjustments, such as increasing whole grains and lean proteins while reducing processed carbohydrates in her diet. For her mental health challenges, I've initiated a counseling referral for psychological support, considering her heightened anxiety and depression associated with significant caregiving burden. Given ongoing psychosocial stressors, we discussed coping strategies. We plan for three-month follow-up for physical examination, facilitating consistent health evaluations aligned with preventive care strategies. This note was constructed using voice recognition software. While every effort has been made to ensure accuracy and record keeper, still areas may have been included sometimes these areas may affect the content or meeting of the given symptoms. Total time spent caring for the patient today was 30 minutes. This includes time spent before the visit reviewing the chart, time spent during the visit, and time spent after the visit and documentation. Patient was informed and verbally consented to the use of an ambient scribe for clinic note documentation during this visit. Orders: Referrals Counseling Referral F32.A - Depression, unspecified, F41.9 - Anxiety disorder, unspecified
[2024-08-08 15:08] VITALS: BP 120/78; PULSE 86; TEMP 36.7; O2SAT 97; BMI 32.4
--- OUTSIDE RECORDS SUMMARY | 2024-08-08 16:57 | XMS_ITS ---
Author Organization [facility] Address [address] [place] [id number] Care Team Providers Care Sericulture Teacher Name Role Phone Lm Larsen MD Primary Care Provider Fernando Xiong Jr REASON FOR VISIT refill omeprazole Medications Medication SIG (Take, Route, Fr equency, Duration) Notes Start Date End Date Status Omeprazole 20 MG 1 tablet Orally Once a day for 90 days 11/25/2017 Active Encounters Encounter Location Date Provider Diagnosis [facility] [address] [facility] [address] [place] [id number] 03/14/2024 Fernando Poole Jr Epigastric pain R10.13 Assessments Encounter Date Diagnosis (ICD Code) Assessment Notes Treatment Notes Treatment Clinical Notes Section Notes 03/14/2024 Epigastric pain (ICD-10 - R10.13) Plan Of Treatment Medication Medication Name Sig Start Date Stop Date Notes Omeprazole 20 MG 1 tablet Orally Once a day for 90 days Next Appt Details Provider Name:Fernando crawford Jr, 05/29/2025 09:00:00 AM, [address] [facility], [address], [place], [phone], Progress Notes * KIMI CROSSOB:1960 (63 yo F)Acc No.[id number]:03/14/2024 Patient:?JUAN J CROSS :1960???Age:63 Y???Sex:Female Address:[address] [place] [address] [place], [place] [address] * Refills? Refill Omeprazole Tablet Delayed Release, 20 MG, Orally, 90, 1 tablet, Once a day, 90 days, Refills=4 * true * Date:? Generated for Vivian castillo/Frank/Nehaitting on:?08/08/2024 04:57 PM EDT
--- OUTSIDE RECORDS SUMMARY | 2024-08-08 16:58 | XMS_ITS ---
Author Organization [facility] Address [address] [place] [address] Care Team Providers Care Cco Name Role Phone Po Lm TAMEZ Primary Care Provider Fernando Xiong Jr Unavailable Allergies Allergen (clinical drug ingredient) Drug/Non Drug Allergy documented on EMR Reaction Allergy Type Onset Date Status codeine Codeine Sulfate Unknown Drug Allergy A ctive sulfamethoxazole / trimethoprim Bactrim Unknown Drug Allergy Active moxifloxacin Avelox Unknown Drug Allergy Acti ve celiac disease (uncoded) Unknown Allergy Active cefaclor Ceclor (uncoded) Unknown Allergy Act leah Gentamicin in Saline Unknown Drug Allergy Active erythromycin Erythromycin Unknown Drug Allergy A ctive REASON FOR VISIT Patient presents today for gerd Medications Medication SIG (Take, Route, Frequency, Duration) Notes Start Date End Date Status Losartan Potassium 25 MG 1 tablet Orally Once a day Active Omeprazole 20 MG 1 tablet Orally Once a day for 90 days 11/25/2017 Active Omeprazole 20 MG TAKE 1 CAPSULE BY MOUTH EVERY DAY for 90 Active MiraLax (colon prep) 8.3 oun ce ((238) grams mixed with Gatorade or Crystal Light orally begin at 5:00 p.m. the day before the procedure for 1 day 07/29/2019 Active Probiotic 250 MG 1 capsule Orally onc e a day Active amLODIPine Besylate 5 MG 1 tablet Orally Once a day Active ZyrTEC Allergy 10 MG 1 tablet Orally Onc e a day Active hydroCHLOROthiazide 25 MG 1 tablet Orall y Once a day Active Flonase 50 MCG/ACT 1 spray in each nostril Nasally Once a day Active Vitamin D 1000 UNIT 1 tablet Orally Once a day Active Potassium Citrate - as directed po QD Active Multi Vitamin/Minerals - as directed Ora lly once a day Active Social History Alcohol Screen Question Answer Notes Did you have a drink containing alcohol in the p ast year? No Points 0 Interpretation Negative Section Notes: Tobacco use negative. Alcohol use one to 2 drinks 4-5 times per week. Vital Signs Temperature 99.1 degrees Fahrenheit 07/26/19 25 Blood pressure systolic 001 mm Hg 07/26/19 25 Blood pressure diastolic 01 mm Hg 025 Height 66 in 07/25/2024 Weight 195.6 lbs 07/25/2024 BMI 31.57 kg/m2 07/25/2024 Encounters Encounter Location Date Provider Diagnosis [facility] [address] [place] [address] 07/25/2024 Fernando Poole Jr Gastroesophageal reflux disease without esophagitis K21.9 ; Irritable bowel syndrome with both constipation and diarrhea K58.2 and Celiac disease K90.0 Assessments Encounter Date Diagnosis (ICD Code) Assessment Notes Treatment Notes Treatment Clinical Notes Section Notes 07/25/2024 Gastroesophageal reflux disease without esophagitis (ICD-10 - K21.9) Gastroesophageal reflux disease material was printed She is stable with respect to her gastroesophageal reflux disease. We discussed diet, lifestyle modifications, and weight management regarding the treatment of reflux. She will continue omeprazole. Celiac disease is stable on a gluten-free diet She will continue this. Colonoscopy was done in 2020 and 5-year follow-up will be due next year because of a history of colon polyps. We reviewed this today. Today's visit was 35 minutes. 07/25/2024 Irritable bowel syndrome with both constipation and diarrhea (ICD-10 - K58.2) She is stable with respect to her gastroesophageal reflux disease. We discussed diet, lifestyle modifications, and weight management regarding the treatment of reflux. She will continue omeprazole. Celiac disease is stable on a gluten-free diet She will continue this. Colonoscopy was done in 2020 and 5-year follow-up will be due next year because of a history of colon polyps. We reviewed this today. Today's visit was 35 minutes. 07/25/2024 Celiac disease (ICD-10 - K90.0) She is stable with respect to her gastroesophageal reflux disease. We discussed diet, lifestyle modifications, and weight management regarding the treatment of reflux. She will continue omeprazole. Celiac disease is stable on a gluten-free diet She will continue this. Colonoscopy was done in 2020 and 5-year follow-up will be due next year because of a history of colon polyps. We reviewed this today. Today's visit was 35 minutes. Plan Of Treatment Treatment Notes Assessment Notes Gastroesophageal reflux dise ase without esophagitis Gastroesophageal reflux disease material was printed Next Appt Details Follow Up: 1 Year, Reason: Provider Name:Fernando crawford Jr, 05/29/2025 09:00:00 AM, [address] [place] [address], [address], [place], [address], Progress Notes * KIMI CROSSOB:1960 (64 yo F)Acc No.[id number]:07/25/2024 Progress Notes Patient:?JUAN J CROSS Provider:?Fernando Poole MD :1960???Age:64 Y???Sex:Female D ate:07/25/2024 Address:[address] [place] [address] Pcp:Lm Larsen MD Subjective: * Chief Complaints: * ???1. Patient presents today for gerd. * HPI: ???New symptom(s):? Juan J is a pleasant 64-year-old woman seen today in follow-up of gastroesophageal reflux disease and celiac disease. Since we saw her last, she has been doing well with respect to her reflux symptoms. She continues on omeprazole daily. She follows a gluten-free diet. She has no problems with bowel movements or rectal bleeding. She is up-to-date on colorectal cancer screening. She is under significant stress with her 's illness regarding end-stage liver disease. * Medical History:?Nephrolithi asis, esophageal reflux upper endoscopy 01/22/18, and no Yun's or H. pylori, Environmental allergies, Veinus insufficiency in both legs, Phlebectomy in left leg, Irritable bowel syndrome, Positive hepatitis C antibody, no viremia, Hypertension, Colonoscopy 07/03/20, five-year followup because a personal history of colon polyps, Sleep apnea, Celiac disease. * Surgical History:?cholecyste ctomy , IUD insertion and removal , section , dilatation and curettage , right knee 03/03/2019, denise insufficiency surgery , phlebectomy on left leg . * Family History:?Father: dece ased.?Mother: , diagnosed with HTN (hypertension).? She believes her sister had colon polyps. No family history of colon cancer or liver cancer. * Social History:?Tobacco Use:?Tobacco Use/Smoking?Are you a: former smoker , How long has it been since you last smoked?: > 10 years.?Drugs/Alcohol:?Alcohol Screen?Did you have a drink containing alcohol in the past year??No,?Points?0,?Interpretation?Negative.?Miscellaneous:?Marital status: . Occupation: [employer]. ???Tobacco use negative. Alcohol use one to 2 drinks 4-5 times per week. * Medications:?Taking Multi Vi tamin/Minerals - Tablet as directed Orally once a day , Taking Potassium Citrate - Powder as directed po QD , Taking Vitamin D 1000 UNIT Tablet 1 tablet Orally Once a day , Taking Flonase 50 MCG/ACT Suspension 1 spray in each nostril Nasally Once a day , Taking hydroCHLOROthiazide 25 MG Tablet 1 tablet Orally Once a day , Taking ZyrTEC Allergy 10 MG Tablet 1 tablet Orally Once a day , Taking amLODIPine Besylate 5 MG Tablet 1 tablet Orally Once a day , Taking Losartan Potassium 25 MG Tablet 1 tablet Orally Once a day , Taking Probiotic 250 MG Capsule 1 capsule Orally once a day , Taking MiraLax (colon prep) 8.3 ounce ((238) grams mixed with Gatorade or Crystal Light orally begin at 5:00 p.m. the day before the procedure , Taking Omeprazole 20 MG Capsule Delayed Release TAKE 1 CAPSULE BY MOUTH EVERY DAY , Taking Omeprazole 20 MG Tablet Delayed Release 1 tablet Orally Once a day * Allergies:?Avelox, Bactrim, Erythromycin, Gentamicin in Saline, Codeine Sulfate, Ceclor, celiac disease. Objective: * Vitals:?Wt: 195.6 lbs, Ht: 6 6 in, BMI:31.57Index, BP: 001/01 mm Hg, Temp: 99.1, [id number]. * Examination: ???General Examination: ???On examination today, she appears well. Skin is anicteric. Lungs are clear. Heart shows a regular rate and rhythm. Abdomen is soft without focal masses or tenderness. Extremities are without edema. Assessment: * Assessment: 1.?Gastroesophageal reflux d isease without esophagitis - K21.9 (Primary)???2.?Irritable bowel syndrome with both constipation and diarrhea - K58.2???3.?Celiac disease - K90.0??? She is stable with respect t o her gastroesophageal reflux disease. We discussed diet, lifestyle modifications, and weight management regarding the treatment of reflux. She will continue omeprazole. Celiac disease is stable on a gluten-free diet She will continue this. Colonoscopy was done in 2020 and 5-year follow-up will be due next year because of a history of colon polyps. We reviewed this today. Today's visit was 35 minutes. Plan: * Treatment: * Procedure Codes:?3017F COLOR ECTAL CA SCREEN DOC REV, M1159 [facility]osp[facility] serv [facility] [facility], G9745 DOC RSN FOR NOT SCREEN/REC F/U HBP * Preventive Medicine:? ??Counseling:?Care goal follow-up plan:?Above Normal BMI Follow-up?Dietary management education, guidance, and counseling,?BMI management provided?Yes.? * Follow Up:?1 Year * * Sign off status: Completed true * Provider:?Fernando Poole MD Date:?0 07/25/2024 Generated for Vivian castillo/Frank/eTransmitting on:?08/08/2024 04:57 PM EDT History and Physical Notes * HPI (History of Present Illness) Category Sub-Category Detail Notes Category Not es New symptom(s) Juan J is a pl easant 64-year-old woman seen today in follow-up of gastroesophageal reflux disease and celiac disease. Since we saw her last, she has been doing well with respect to her reflux symptoms. She continues on omeprazole daily. She follows a gluten-free diet. She has no problems with bowel movements or rectal bleeding. She is up-to-date on colorectal cancer screening. She is under significant stress with her 's illness regarding end-stage liver disease. Examination Category Sub-Category Detail Notes Category Not es General Examination On exami nation today, she appears well. Skin is anicteric. Lungs are clear. Heart shows a regular rate and rhythm. Abdomen is soft without focal masses or tenderness. Extremities are without edema.
--- OUTSIDE RECORDS SUMMARY | 2024-08-08 16:58 | XMS_ITS | Encounter Summary ---
Author Organization [facility] Address [address] [facility] [address] [place] [address] Phone Care Team Providers Care Claims Examiner Name Role Phone Lizzie Everett Primary Care Provider [phone] Encounter Details Date Type Department Care Team (Late Contact Info) Description 02/25/2022 Telephone [facility] [address] [facility] [address] [place] [address] Mj Soni MD [address] [facility] [address] [place] [address] Social History Tobacco Use Types Packs/Day Years Used Date Smoking Tobacco: Former Alcohol Use Standard Drinks/Week Comments Yes 0 (1 standard drink = 0.6 oz pure alcohol) Alcoholic Drinks/day: 1-2 drinks per day Comments Unknown Sex and Gender Information Value Date Recorded Sex Assigned at Not on file Legal Sex Female 5:01 PM EST Gender Identity Not on file Sexual Orientation Not on file documented as of this encounter Miscellaneous Notes * Telephone Encounter - Marie You - 02/25/2022 10:41 AM EDT Pt called she suspects she is starting to get a bladder infection because she is having pressure build up but is having a hard time urinating. There is no pain at this time. She would like to speak with you for guidance. CB# [phone] Thank you documented in this encounter Plan of Treatment Upcoming Encounters Date Type Department Care Team (Late st Contact Info) Description 07/17/2025 1:15 PM EDT Office Visit [facility] [address] [address] Mj Soni MD [address] [address] documented as of this encounter Visit Diagnoses Not on filedocumented in this encounter Care Teams Claims Examiner Relationship Specialty Start Date End Date Lizzie Everett PA [address] [facility] [address] [place], [place] PCP - General Physician Lime Mixer Tender 06/30/22 documented as of this encounter
--- OUTSIDE RECORDS SUMMARY | 2024-08-08 16:58 | XMS_ITS | Clinical Summary ---
Author Organization [facility] Address [address] [place] [address] Care Team Providers Care Deck Specialist Name Role Phone Mj Soni MD Unavailable [phone] Adolfo Durant MD Unavailable [phone] Vinicius Solis MD Unavailable Allergies Active Allergy Reactions Criticality Noted Date Comments Adhesives/Tape Rash/Dermatitis Low 06/07/2024 Moxifloxacin Unknown/Patient and Family Unable to Define Medium 10/12/2023 Sulfamethoxazole-Trimetho prim Unknown/Patient and Family Unable to Define Medium 10/12/2023 Cefaclor Unknown/Patient and Family Unable to Define Medium 10/12/2023 Codeine Unknown/Patient and Family Unable to Define Medium 10/12/2023 Erythromycin Unknown/Patient and Family Unable to Define Medium 10/12/2023 Fish Allergy Anaphylaxis High 06/24/2021 Gentamicin Unknown/Patient and Family Unable to Define Medium 10/12/2023 Nuts Unknown/Patient and Family Unable to Define Medium 10/12/2023 Other Rash/Dermatitis,Unkn own /Patient and Family Unable to Define Medium 06/24/2021 Seafood Unknown/Patient and Family Unable to Define,Anaphylaxis High 08/25/2014 Anaphylaxis Shellfish-Derived Products Unknown/Patient and Family Unable to Define Medium 10/12/2023 Medications Medication Sig Dispensed Refills Start Date End Date Status albuterol (PROVENTIL HFA; VENTOLIN HFA) 108 (90 Base) MCG/ACT inhaler INHALE 1 TO 2 PUFF(S) BY MOUTH EVERY 4-6 HOURS NEEDED FOR 30 DAYS 09/02/2023 Active amLODIPine (NORVASC) 5 MG tablet Take 1 tablet (5 mg total) by mouth daily. 10/04/2023 Active EPINEPHrine 0.3 mg/0.3 mL IJ auto-injection USE DIRECTED FOR ANAPHYLAXIS AND CALL 911 07/06/2023 Active hydroCHLOROthiazide (HYDRODIURIL) 25 MG tablet Take 1 tablet (25 mg total) by mouth daily. 08/10/2023 Active losartan (COZAAR) 50 MG tablet Take 1 tablet (50 mg total) by mouth daily. 08/29/2023 Active OMEprazole (PriLOSEC) 20 MG capsule Take 1 capsule (20 mg total) by mouth daily. 09/23/2023 Active valACYclovir (VALTREX) 1000 MG tablet Take 1 tablet (1,000 mg total) by mouth as needed. 10/03/2023 Active potassium citrate (UROCIT-K) 10 MEQ (1080 MG) ER tablet Take 1 tablet (10 mEq total) by mouth 3 (three) times a day. Swallow tablet whole with full glass of water Active fluticasone (FloNASE) 50 mcg/spray nasal spray 1 spray into each nostril daily. Active cholecalciferol (CHOLECALCIFEROL) 25 MCG (1000 UT) tablet Take 2 tablets (2,000 Units total) by mouth daily. Active Multiple Vitamin tablet Take 1 tablet by mouth daily. Active cetirizine (ZyrTEC) 10 MG tablet Take 1 tablet (10 mg total) by mouth daily. Active Flaxseed, Linseed, (FLAX SEED OIL PO) Take by mouth daily at the same time. Active Active Problems Problem Noted Date Diagnosed Date KHADAR (obstructive sleep apnea) 10/12/2023 Nephrolithiasis 10/12/2023 Overview (10/12/2023): Calcium Primary hypertension 10/12/2023 Other hyperlipidemia 10/12/2023 History of colon polyps 10/12/2023 Gastroesophageal reflux disease without esophagi tis 10/12/2023 History of hepatitis C 10/12/2023 Overview (10/12/2023): Undetectable viral load- follows with GI History of tobacco use 10/12/2023 Mild intermittent asthma without complication Seasonal allergies 10/12/2023 IFG (impaired fasting glucose) 10/12/2023 Herpes simplex infection of genitourinary system 10/12/2023 Encounters Date Type Department Care Team Description 06/20/2024 Orders Only [address] [place] [address] Lizzie Everett PA-C Abdominal pain, unspecified abdominal location (Primary Dx) 06/20/[address] [place] [address] Lizzie Everett PA-C 06/07/2024 4:15 PM EST Office Visit [address] [place] [address] Lizzie Everett PA-C Primary hypertension (Primary Dx); COVID 06/07/2024 Orders Only [facility] [address] [facility] [address] [place] [address] Lizzie Everett PA-C KHADAR (obstructive sleep apnea) (Primary Dx); Nephrolithiasis; Primary hypertension; Other hyperlipidemia; History of colon polyps; Gastroesophageal reflux disease without esophagitis; History of hepatitis C; History of tobacco use; Mild intermittent asthma without complication; IFG (impaired fasting glucose) 06/07/2024 Travel from Last 3 Months Immunizations Name Administration Dates Next Due Influenza High-Dose Trivalen t,(FLUZONE HIGH-DOSE), Perservative Free IM 0.5 mL 65 years and older 05/28/2020 Influenza Virus Trivalent Sp lit Vaccine (MDV) IM 01/30/2014,02/28/2013 Influenza, Quadrivalent (FLU CELVAX) MDCK, Preservative Free IM 01/13/2019,03/16/2018 Influenza, Unspecified 03/08/2017,02/26/2016, Pneumococcal Conjugate 20-Valent 04/08/2022 Tdap 09/30/2022,07/18/2013 Zoster Vaccine Recombinant (Shingrix) 04/26/2022 ,10/27/2021 Family History Medical History Relation Name Comments Kidney Stones Father Breast cancer Maternal Aunt Breast cancer Maternal Grandmother Coronary artery disease Maternal Grandmother Kidney Stones Maternal Grandmother Hypothyroidism Mother Relation Name Status Comments Father Maternal Aunt Alive Maternal Grandmother Mother Social History Tobacco Use Types Packs/Day Years Used Date Smoking Tobacco: Former Cigarettes 1 13 Smokeless Tobacco: Never Tobacco Cessation:Counseling Given: Not Answered Comments:Quit 32yrs ago Alcohol Use Standard Drinks/Week Comments Yes 0 (1 standard drink = 0.6 oz pur e alcohol) occasionally [facility] Utilities Answer Date Recorded In the past 12 months has th e [employer], gas, oil, or water [employer] threatened to shut off services in your home? No 06/06/2024 Social Connection and Isolat ion Panel [NHANES] Answer Date Recorded In a typical week, how many times do you talk on the phone with family, friends, or neighbors? More than three times a week 06/06/2024 Frequency of Social Gatherin gs with Friends and Family Not on file 06/06/2024 Attends Synagogue Services Not on file 06/06 Active Member of Clubs or Organizations Not on f ile 06/06/2024 Attends Club or Organization Meetings Not on bacilio e 06/06/2024 Marital Status Not on file 06/06/2024 AUDIT-C Answer Date Recorded Q1: How often do you have a drink containing alc ohol? 2-4 times a month 06/06/2024 Q2: How many drinks containi ng alcohol do you have on a typical day when you are drinking? 1 or 2 06/06/2024 Frequency of Binge Drinking Not on file 05/12 PHQ-2 Answer Date Recorded PHQ-2 Total Score 0 10/12/2023 Hunger Vital Sign Answer Date Recorded Within the past 12 months, y ou worried that your food would run out before you got the money to buy more. Never true 06/06/19 25 Within the past 12 months, t he food you bought just didn't last and you didn't have money to get more. Never true 06/06/2024 PRAPARE - Transportation Answer Date Re corded In the past 12 months, has l ack of transportation kept you from medical appointments or from getting medications? No 05/12 In the past 12 months, has l ack of transportation kept you from meetings, work, or from getting things needed for daily living? No 06/06/2024 Housing Stability Vital Sign Answer Jamel e Recorded In the last 12 months, was t here a time when you were not able to pay the mortgage or rent on time? No 06/06/2024 Number of Times Moved in the Last Year Not on fi le 06/06/2024 At any time in the past 12 m [facility], were you homeless or living in a chcf (including now)? No 06/06/2024 Education Answer Date Recorded What is the highest level of school you have completed or the highest degree you have received? 12th grade 06/06/2024 Sex and Gender Information Value Date Recorded Sex Assigned at Female 10/10/2023 12:09 PM EDT Gender Identity Female 10/10/2023 12:09 PM EDT Sexual Orientation Heterosexual (straight) 10/09 12:09 PM EDT Last Filed Vital Signs Vital Sign Reading Time Taken Comments Blood Pressure 118/78 06/07/2024 4:16 PM EST Pulse 90 06/07/2024 4:16 PM EST Temperature 36.2 ??C (97.2 ??F) 06/07/2024 4:16 PM ES T Respiratory Rate 17 06/07/2024 4:16 PM EST Oxygen Saturation 96% 06/07/2024 4:16 PM EST Inhaled Oxygen Concentration - - Weight 89.8 kg (198 lb) 06/07/2024 4:16 PM EST Height 167.6 cm (5' 6 ) 06/07/2024 4:16 PM EST Body Mass Index 31.96 06/07/2024 4:16 PM EST Plan of Treatment Upcoming Encounters Date Type Department Care Team (Late st Contact Info) Description 10/17/2024 12:30 PM EDT Office Visit [address] [place] [address] Lizzie Everett PA-C [address] [place] [address] Health Maintenance Due Date Last Done Comments Colonoscopy 2006 Influenza Vaccine 12/10/2023 05/28/2020, , 03/16/2018, Additional history exists Mammogram 03/20/2025 03/20/2023 (Prev iously Completed) Pap Smear (Ages 21-65) 08/09/2026 4 (Previously Completed) DTaP/Tdap/Td Vaccines (3 - Td or Tdap) 09/30/2032 09/30/2022, 07/18/2013 Pneumococcal Vaccines 50+ Completed 04/08/2022 Zoster (Shingles) Vaccine Completed 04/26/2022, Hepatitis C Virus Screening Completed 06/07/2024, 10/12/2023, 10/12/2023, Additional history exists COVID-19 Vaccine Discontinued HIV Screening Discontinued Hepatitis B Vaccines Aged Out No long er eligible based on patient's age to complete this topic RSV Vaccine 60 years and older and Patients Discontinued Procedures Procedure Name Priority Date/Time Associated Diagnosis Comments HEMOGLOBIN A1C Routine 06/22/2024 9:50 AM EST IFG (impaired fasting glucose) TSH REFLEX TO FREE T4 Routine 06/22/2024 9:50 AM EST KHADAR (obstructive sleep apnea) Nephrolithiasis Primary hypertension Other hyperlipidemia History of colon polyps Gastroesophageal reflux disease without esophagitis History of hepatitis C History of tobacco use Mild intermittent asthma without complication IFG (impaired fasting glucose) URINALYSIS WITH MICROSCOPIC Routine 06/22/2024 9:50 AM EST KHADAR (obstructive sleep apnea) Nephrolithiasis Primary hypertension Other hyperlipidemia History of colon polyps Gastroesophageal reflux disease without esophagitis History of hepatitis C History of tobacco use Mild intermittent asthma without complication IFG (impaired fasting glucose) LIPID PANEL WITH NONHDL Routine 06/22/2024 9:50 AM EST KHADAR (obstructive sleep apnea) Nephrolithiasis Primary hypertension Other hyperlipidemia History of colon polyps Gastroesophageal reflux disease without esophagitis History of hepatitis C History of tobacco use Mild intermittent asthma without complication IFG (impaired fasting glucose) VITAMIN D, 25-HYDROXY Routine 06/22/2024 9:50 AM EST KHADAR (obstructive sleep apnea) Nephrolithiasis Primary hypertension Other hyperlipidemia History of colon polyps Gastroesophageal reflux disease without esophagitis History of hepatitis C History of tobacco use Mild intermittent asthma without complication IFG (impaired fasting glucose) HEPATIC FUNCTION PANEL Routine 06/22/2024 9:50 AM EST KHADAR (obstructive sleep apnea) Nephrolithiasis Primary hypertension Other hyperlipidemia History of colon polyps Gastroesophageal reflux disease without esophagitis History of hepatitis C History of tobacco use Mild intermittent asthma without complication IFG (impaired fasting glucose) BASIC METABOLIC PANEL Routine 06/22/2024 9:50 AM EST KHADAR (obstructive sleep apnea) Nephrolithiasis Primary hypertension Other hyperlipidemia History of colon polyps Gastroesophageal reflux disease without esophagitis History of hepatitis C History of tobacco use Mild intermittent asthma without complication IFG (impaired fasting glucose) COMPLETE BLOOD COUNT, WITH DIFFERENTIAL Routine 06/22/2024 9:50 AM EST KHADAR (obstructive sleep apnea) Nephrolithiasis Primary hypertension Other hyperlipidemia History of colon polyps Gastroesophageal reflux disease without esophagitis History of hepatitis C History of tobacco use Mild intermittent asthma without complication IFG (impaired fasting glucose) URINE CULTURE Routine 06/22/2024 9:00 AM EST Abdominal pain, unspecified abdominal location from Last 3 Months Results * TSH REFLEX FREE T4 (06/22/2024 9:50 AM EST) TSH reflex Free T4 0.87 0.40 - 4.50 mIU/L [facility] Blood Blood specimen / Unknown 06/22/2024 9:50 AM EST 06/22/2024 9:51 AM EST Narrative [facility] - 06/23/2024 12:32 AM EST FASTING:YES FASTING: YES Lizzie Everett PA-C LAB BLOOD O RDERABLES [facility] [address] [place] [phone] * (ABNORMAL) Lipid panel with nonHDL (06/22/2024 9:50 AM EST) Cholesterol, Total 213(H) <200 mg/dL [facility] Cholesterol, HDL 57 > OR = 50 mg/dL [facility] Triglycerides 134 <150 mg/dL [facility] LDL Cholesterol 131(H) mg/dL (calc) [facility] Comment: Reference range: <100 Desirable range <100 mg/dL for primary prevention; ?? <70 mg/dL for patients with CHD or diabetic patients with > or = 2 CHD risk factors. LDL-C is now calculated using the Gael-Cardozo calculation, which is a validated novel method providing better accuracy than the Friedewald equation in the estimation of LDL-C. Gael SS et al. PARI. 2013;310(44): 0268-9681 (http://education.ToyTalk/faq/PRW683) Cholesterol/HDL Ratio 3.7 <5.0 (calc) [facility] Non HDL Chol. (LDL+VLDL) 156(H) <130 mg/dL (calc) [facility] Comment: For patients with diabetes plus 1 major ASCVD risk factor, treating to a non-HDL-C goal of <100 mg/dL (LDL-C of <70 mg/dL) is considered a therapeutic option. Blood Blood specimen / Unknown 06/22/2024 9:50 AM EST 06/22/2024 9:51 AM EST Narrative [facility] - 06/23/2024 12:32 AM EST FASTING:YES FASTING: YES Lizzie Everett PA-C LAB BLOOD O RDERABLES [facility] [address] [place] [phone] * Complete Blood Count, with Differential (06/22/2024 9:50 AM EST) White Blood Cell Count 7.3 3.8 - 10.8 Thousand/u L [facility] Red Blood Cell Count 4.77 3.80 - 5.10 Million/uL [facility] Hemoglobin 14.1 11.7 - 15.5 g/dL [facility] Hematocrit 43.4 35.0 - 45.0 % [facility] MCV 91.0 80.0 - 100.0 fL [facility] MCH 29.6 27.0 - 33.0 pg [facility] MCHC 32.5 32.0 - 36.0 g/dL [facility] Comment: For adults, a slight decrease in the calculated MCHC value (in the range of 30 to 32 g/dL) is most likely not clinically significant; however, it should be interpreted with caution in correlation with other red cell parameters and the patient's clinical condition. RDW 13.0 11.0 - 15.0 % [facility] Platelet Count 306 140 - 400 Thousand/u L [facility] MPV 10.6 7.5 - 12.5 fL [facility] Abs Neutrophils Auto 3,862 1,500 - 7,800 cells/uL [facility] Abs Lymphocytes Auto 2,650 850 - 3,900 cells/uL [facility] Abs Monocytes Auto 621 200 - 950 cells/uL [facility] Abs Eosinophils Auto 131 15 - 500 cells/uL [facility] Abs Basophils Auto 37 0 - 200 cells/uL [facility] Neutrophils Auto 52.9 % Que [facility] Lymphocytes Auto 36.3 % Que [facility] Monocytes Auto 8.5 % [facility] Eosinophils Auto 1.8 % Que [facility] Basophils Auto 0.5 % [facility] Blood Blood specimen / Unknown 06/22/2024 9:50 AM EST 06/22/2024 9:51 AM EST Narrative [facility] - 06/23/2024 12:32 AM EST FASTING:YES FASTING: YES Lizzie Everett PA-C LAB BLOOD O RDERABLES [facility] [address] [place] [phone] * VITAMIN D, 25-HYDROXY (06/22/2024 9:50 AM EST) Vitamin D,25-Oh,Total, IA 50 30 - 100 ng/mL [facility] Comment: Vitamin D Status ? 25-OH Vitamin D: Deficiency: ?<20 ng/mL Insufficiency: ? 20 - 29 ng/mL Optimal: ? > or = 30 ng/mL For 25-OH Vitamin D testing on patients on D2-supplementation and patients for whom quantitation of D2 and D3 fractions is required, the QuestAssureD(TM) 25-OH VIT D, (D2,D3), LC/MS/MS is recommended: order code 39864 (patients >2yrs). See Note 1 Note 1 For additional information, please refer to http://education.ToyTalk/faq/IYJ781 (This link is being provided for informational/ educational purposes only.) Blood Blood specimen / Unknown 06/22/2024 9:50 AM EST 06/22/2024 9:51 AM EST Narrative [facility] - 06/23/2024 12:32 AM EST FASTING:YES FASTING: YES Lizzie Everett PA-C LAB BLOOD O RDERABLES [facility] [address] [place] [phone] * (ABNORMAL) Urinalysis with Microscopic (06/22/2024 9:50 AM EST) Color YELLOW YELLOW [facility] Clarity TURBID(A) CLEAR [facility] Specific Rison 1.026 1.001 - 1.035 [facility] pH 5.5 5.0 - 8.0 [facility] Glucose, Urine, Random NEGATIVE NEGATIVE [facility] Bilirubin NEGATIVE NEGATIVE [facility] Ketones NEGATIVE NEGATIVE [facility] IO [employer] Blood NEGATIVE NEGATIVE [facility] Protein TRACE(A) NEGATIVE [facility] Nitrite NEGATIVE NEGATIVE [facility] Leukocyte Esterase NEGATIVE NEGATIVE [facility] [employer] WBC 0-5 < OR = 5 /HPF [facility] RBC 0-2 < OR = 2 /HPF [facility] Squamous Epithelial Cells NONE SEEN < OR = 5 /HPF [facility] Bacteria NONE SEEN NONE SEEN /HPF [facility] Calcium Oxalate Crystals FEW NONE OR FEW /HPF [facility] Hyaline Cast NONE SEEN NONE SEEN /LPF [facility] Note [facility] Comment: This urine was analyzed for the presence of WBC, RBC, bacteria, casts, and other formed elements. Only those elements seen were reported. X-Specimen 16 Urine specimen obtained by clean catch procedure / Unknown 06/22/2024 9:50 AM EST 06/22/2024 9:51 AM EST Narrative [facility] - 06/23/2024 12:32 AM EST FASTING:YES FASTING: YES Lizzie Everett PA-C URINE ORDER [facility] [address] [place] [phone] * Hemoglobin A1c (06/22/2024 9:50 AM EST) Hemoglobin A1C 5.5 <5.7 % of total Hgb [facility] Comment: For the purpose of screening for the presence of diabetes: <5.7% ? Consistent with the absence of diabetes 5.7-6.4% ?Consistent with increased risk for diabetes ?(prediabetes) > or =6.5% ??Consistent with diabetes This assay result is consistent with a decreased risk of diabetes. Currently, no consensus exists regarding use of hemoglobin A1c for diagnosis of diabetes in children. According to [place] Diabetes Association (ADA) guidelines, hemoglobin A1c <7.0% represents optimal control in non- diabetic patients. Different metrics may apply to specific patient populations. Standards of Medical Care in Diabetes(ADA). ?? Blood Blood specimen / Unknown 06/22/2024 9:50 AM EST 06/22/2024 9:51 AM EST Narrative [facility] - 06/23/2024 12:32 AM EST FASTING:YES FASTING: YES Lizzie Everett PA-C LAB BLOOD O RDERABLES Performing Organization Address [facility] de Phone Number [facility] [address] [place] [phone] * HEPATIC FUNCTION PANEL (06/22/2024 9:50 AM EST) Protein, Total 6.6 6.1 - 8.1 g/dL [facility] Albumin 4.5 3.6 - 5.1 g/dL [facility] Globulin 2.1 1.9 - 3.7 g/dL (calc) [facility] Albumin/Globulin Ratio 2.1 1.0 - 2.5 (calc) [facility] Bilirubin, Total 1.0 0.2 - 1.2 mg/dL [facility] Bilirubin, Direct 0.2 < OR = 0.2 mg/dL [facility] Bilirubin, Indirect 0.8 0.2 - 1.2 mg/dL (calc) [facility] Alkaline Phosphatase 55 37 - 153 U/L [facility] Aspartate Aminotrans (AST) 14 10 - 35 U/L [facility] Alanine Aminotrans (ALT) 11 6 - 29 U/L [facility] Blood Blood specimen / Unknown 06/22/2024 9:50 AM EST 06/22/2024 9:51 AM EST Narrative [facility] - 06/23/2024 12:32 AM EST FASTING:YES FASTING: YES Lizzie Everett PA-C LAB BLOOD O RDERABLES Performing Organization Address [facility] Co de Phone Number [facility] [address] [place] [phone] * (ABNORMAL) BASIC METABOLIC PANEL (06/22/2024 9:50 AM EST) Glucose 105(H) 65 - 99 mg/dL [facility] Comment: ? Fasting reference interval For someone without known diabetes, a glucose value between 100 and 125 mg/dL is consistent with prediabetes and should be confirmed with a follow-up test. Blood Urea Nitrogen (BUN) 20 7 - 25 mg/dL [facility] Creatinine 0.67 0.50 - 1.05 mg/dL [facility] Creatinine w/ eGFR 98 > OR = 60 mL/min/1. 73m2 [facility] BUN/Creatinine Ratio SEE NOTE: (calc) [facility] Comment: ?? Not Reported: BUN and Creatinine are within ?? reference range. ? Sodium 139 135 - 146 mmol/L [facility] Potassium 3.7 3.5 - 5.3 mmol/L [facility] Chloride 101 98 - 110 mmol/L [facility] CO2 28 20 - 32 mmol/L [facility] Calcium 9.7 8.6 - 10.4 mg/dL [facility] Blood Blood specimen / Unknown 06/22/2024 9:50 AM EST 06/22/2024 9:51 AM EST Narrative [facility] - 06/23/2024 12:32 AM EST FASTING:YES FASTING: YES Lizzie Everett PA-C LAB BLOOD O RDERABLES [facility] [address] [place] [phone] * Urine Culture (06/22/2024 9:00 AM EST) Culture SEE NOTE [facility] Comment: ??CULTURE, URINE, ROUTINE ?Micro Number: ?[id number] ??Test Status: ? Final ??Specimen Source: ?? Urine, clean catch ??Specimen Quality: ??Adequate ??Result: ?No Growth Microbiology Urine specimen obtained by clean catch procedure / Unknown 06/22/2024 9:00 AM EST 06/22/2024 11:58 AM EST Narrative [facility] - 06/23/2024 9:17 PM EST PATIENT UNABLE TO VOID; ADVISED TO RETURN FOR COLLECTION. Lizzie Everett PA-C LAB AMB AUDRA RO ORDERABLES [facility] [employer] [address] [place] [phone] from Last 3 Months Care Teams Deck Specialist Relationship Specialty Start Date End Date Mj Soni MD Nephrology 10/12/23 Adolfo Durant MD [address] [place] [address] [address] [place] [address] Referring Provider Obstetrics and Gynecology 10/12/23 Vinicius Solis MD [address] [place] [address] [address] [place] [address] Referring Provider Cardiology-Scan 10/12/23 Elisa Moulton [facility] Nurse Practitioner Sleep Medicine 10/05/23 Ajith Olson Physician Allergy and Immunology-Scan 10/05/23
--- OUTSIDE RECORDS SUMMARY | 2024-08-08 16:58 | XMS_ITS | Encounter Summary ---
Author Organization [facility] Address [address] [place] [address] Care Team Providers Care Social Staff Worker Name Role Phone Lizzie Everett PA-C Primary Care Provi kinsey Mj Soni MD Unavailable [phone] Adolfo Durant MD Unavailable [phone] Vinicius Solis MD Unavailable Encounter Details Date Type Department Care Team (Late st Contact Info) Description 06/20/[address] [phone] Lizzie Everett PA-C [address] [place] [address] Social History Tobacco Use Types Packs/Day Years Used Date Smoking Tobacco: Former Cigarettes 1 13 Smokeless Tobacco: Never Comments:Quit 32yrs ago Alcohol Use Standard Drinks/Week Comments Yes 0 (1 standard drink = 0.6 oz pur e alcohol) occasionally [facility] Utilities Answer Date Recorded In the past 12 months has [employer], gas, oil, or water company threatened to shut off services in your home? No 06/06/2024 Social Connection and Isolat ion Panel [NHANES] Answer Date Recorded In a typical week, how many times do you talk on the phone with family, friends, or neighbors? More than three times a week 06/06/2024 Frequency of Social Gatherin gs with Friends and Family Not on file 06/06/2024 Attends Anabaptism Services Not on file 06/06 Active Member [...] any time in the past 12 m [facility], were you homeless or living in a skilled nursing (including now)? No 06/06/2024 Education Answer Date Recorded What is the highest level of school you have completed or the highest degree you have received? 12th grade 06/06/2024 Sex and Gender Information Value Date Recorded Sex Assigned at Female 10/10/2023 12:09 PM EDT Gender Identity Female 10/10/2023 12:09 PM EDT Sexual Orientation Heterosexual (straight) 10/09 12:09 PM EDT documented as of this encounter Miscellaneous Notes * Telephone Encounter - Melia Schneider RN - 06/21/2024 4:10 PM EST Called [place]upe. She is aware of Lizzie's message. * Telephone Encounter - Yue Espinosa RN - 06/21/2024 9:02 AM EST Call out to patient. Patient states that she did have some flank pain. Patient denies fever, chillsand burning sensation when urinating. Patient aware of lab work. * Telephone Encounter - Vane Nj MA - 06/20/2024 3:37 PM EST Pt stated she has been having some cramping/bladder concerns. She stated she was seen recently and would like a urinalysis called in without an appt. She is asking for a call back documented in this encounter Plan of Treatment Upcoming Encounters Date Type Department Care Team (Late st Contact Info) Description 10/17/2024 12:30 PM EDT Office Visit [address] [place] [phone] Lizzie Everett PA-C [address] [place] [address] documented as of this encounter Visit Diagnoses Not on filedocumented in this encounter Care Teams Social Staff Worker Relationship Specialty Start Date End Date Lizzie Everett PA-C [address] [place] [address] PCP - General Internal Medicine 10/12/23 07/28/24 Mj Soni MD [address] [place] [address] Nephrology 10/12/23 Adolfo Durant MD [address] [place] [address] Dr Lau [address] [place] [address] Referring Provider Obstetrics and Gynecology 10/12/23 Vinicius Solis MD [address] [place] [address] Dr Lau [address] [place] [address] Referring Provider Cardiology-Scan 10/12/23 Elisa Moulton [facility] Nurse Practitioner Sleep Medicine 10/05/23 Ajith Olson Physician Allergy and Immunology-Scan 10/05/23 documented as of this encounter
--- OUTSIDE RECORDS SUMMARY | 2024-08-08 16:58 | XMS_ITS | Encounter Summary ---
Author Organization [facility] Address [address] [place] [address] Care Team Providers Care Medical Social Consultant Name Role Phone Lizzie Everett PA-C Primary Care Provi kinsey Mj Soni MD Unavailable [phone] Adolfo Durant MD Unavailable [phone] Vinicius Solis MD Unavailable Encounter Details Date Type Department Care Team (Late st Contact Info) Description 10/15/2023 Scanned Document [address] [phone] Primary Care, Scan Social History Tobacco Use Types Packs/Day Years Used Date Smoking Tobacco: Former Cigarettes 1 13 Smokeless Tobacco: Never Comments:Quit 32yrs ago Alcohol Use Standard Drinks/Week Comments Yes 0 (1 standard drink = 0.6 oz pur e alcohol) occasionally PHQ-2 Answer Date Recorded PHQ-2 Total Score 0 10/12/2023 Sex and Gender Information Value Date Recorded Sex Assigned at Female 10/10/2023 12:09 PM EDT Gender Identity Female 10/10/2023 12:09 PM EDT Sexual Orientation Heterosexual (straight) 10/09 12:09 PM EDT documented as of this encounter Plan of Treatment Upcoming Encounters Date Type Department Care Team (Late st Contact Info) Description 10/17/2024 12:30 PM EDT Office Visit [address] [phone] Lizzie Everett PA-C [address] [place], [place] [address], [place] [address] documented as of this encounter Visit Diagnoses Not on filedocumented in this encounter Care Teams Medical Social Consultant Relationship Specialty Start Date End Date Lizzie Everett PA-C [address] [place] [address] PCP - General Internal Medicine 10/12/23 07/28/24 Mj Soni MD [address] [place] [address] Nephrology 10/12/23 Adolfo Durant MD [address] [place] [address] Dr Lau [address] [place] [address] Referring Provider Obstetrics and Gynecology 10/12/23 Vinicius Solis MD [address] [place] [address] Dr Lau [address] [place] [address] Referring Provider Cardiology-Scan 10/12/23 Elisa Moulton [facility] Nurse Practitioner Sleep Medicine 10/05/23 Ajith Olson Physician Allergy and Immunology-Scan 10/05/23 documented as of this encounter
--- OUTSIDE RECORDS SUMMARY | 2024-08-08 16:58 | XMS_ITS | Clinical Summary ---
Author Organization [facility] Address [address] [place] [phone] Phone Care Team Providers Care Child Psychologist Name Role Phone Lizzie Everett Primary Care Provider [phone] Allergies Active Allergy Reactions Criticality Noted Date Comments Adhesive Tape 06/24/2021 Cefaclor Other (see comments) 08/25/2014 hives Codeine 08/25/2014 hives Pseudoephedrine-Gua ifenesin Hives 06/24/2021 Erythromycin Other (see comments) 08/25/2014 hives Fish Allergy Anaphylaxis High 06/24/2021 Gentamicin Other (see comments) 08/25/2014 hives Moxifloxacin 08/25/2014 Reaction not mentioned Other reaction(s): anaphylaxis, unknown Other Other (see comments),Anaphyla xis High 08/25/2014 hives anaphylaxis Anaphylaxis hives Other reaction(s): METHYLISOTHIAZOLONE Sulfamethoxazole-Tr imethoprim Other (see comments),Hives 2021 Medications cetirizine (ZyrTEC) 10 MG tablet Take 1 tablet by mouth 1 (one) time each day Active Cholecalcifero l 50 MCG (1999 UT) capsule Take 1 capsule by mouth 1 (one) time each day Active fluticasone (FLONASE) 50 MCG/ACT nasal spray Administer 2 sprays into affected nostril(s) 1 (one) time each day Active omeprazole (PriLOSEC) [address] capsule Take 20 mg by mouth 1 (one) time each day Active ProAir HFA 108 (90 Base) MCG/ACT inhaler INHALE 1 TO 2 PUFF(S) BY MOUTH EVERY 4-6 HOURS NEEDED 06/11/19 Active EPINEPHrine (EPIPEN) 0.3 MG/0.3ML injection syringe USE DIRECTED FOR ANAPHYLAXIS AND CALL 911 06/11/19 22 Active Multiple Vitamins-Bath als (CENTRUM SILVER 50+WOMEN PO) Take 1 tablet by mouth 1 (one) time each day Active hydroCHLOROthi azide 25 MG tablet TAKE 1 TABLET BY MOUTH EVERY DAY 90 tablet 3 02/09/20 24 Active amLODIPine (NORVASC) 5 MG tablet TAKE 1 TABLET BY MOUTH EVERY DAY AT NIGHT 90 tablet 4 02/24/20 24 Active losartan (COZAAR) 50 MG tablet TAKE 1 TABLET BY MOUTH EVERY DAY 90 tablet 3 02/29/20 24 Active potassium citrate 10 MEQ (1080 MG) CR tablet TAKE 1 TABLET BY MOUTH IN THE MORNING, THEN 1 TAB AT NOON AND THEN 1 TAB IN THE EVENING. 270 tablet 3 06/22/19 25 Active Magnesium 400 MG tablet Take by mouth Active metroNIDAZOLE (METROCREAM) 0.75 % cream Apply 1 Dose topically 025 Discontinued Active Problems Problem Noted Date Diagnosed Date Benign essential hypertension 2021 Edema of lower extremity 2021 Renal stone 2021 Gastro-esophageal reflux disease without esophag itis 08/31/2015 Overview (2021): Follows with Dr. Poole, had EGD 1999?, another EGD / Dr. Poole wanted pt to take PPI Polyp of colon 08/31/2015 Overview (2021): Following with Dr. Poole, last colonoscopy 03/2015, due 2020 Allergic rhinitis 08/25/2014 Hypertensive disorder 08/25/2014 Nephrolithiasis 08/25/2014 Overview (2021): Calcium oxalate stones/Dr Soni and Dr Bowling Encounters Date Type Department Care Team Description 07/18/2024 1:00 PM EDT Office Visit [facility] [address] [place] [address] Mj Soni MD Renal stone (Primary Dx); Hypertensive disorder 06/21/2024 Refill [facility] [address] [place] [address] Ok Solis MD 06/13/2024 Orders Only [facility] [address] [facility] [address] [place] [address] Mj Soni MD Nephrolithiasis; Hypertensive disorder from Last 3 Months Immunizations Name Administration Dates Next Due Influenza Split High Dose Pr eservative Free IM 05/28/2020 Influenza, MDCK, PF, Quadrivalent 01/13/2019,10/2017 Influenza, Unspecified 03/08/2017,02/26/2016, Tdap 07/18/2013 Family History Medical History Relation Comments Gout Father Kidney disease Father Kidney Stones Heart disease Mother Rheumatic Heart Hypertension Mother Relation Status Comments Father Mother Alive Social History Tobacco Use Types Packs/Day Years Used Date Smoking Tobacco: Former Smokeless Tobacco: Never Tobacco Cessation:Counseling Given: No Alcohol Use Standard Drinks/Week Comments Yes 0 (1 standard drink = 0.6 oz pure alcohol) Alcoholic Drinks/day: 1-2 drinks per day Comments Unknown Sex and Gender Information Value Date Recorded Sex Assigned at Not on file Legal Sex Female 5:01 PM EST Gender Identity Not on file Sexual Orientation Not on file Last Filed Vital Signs Vital Sign Reading Time Taken Comments Blood Pressure 118/82 07/18/2024 1:05 PM EDT Pulse 85 07/18/2024 1:05 PM EDT Temperature - - Respiratory Rate - - Oxygen Saturation 98% 06/24/2021 1:24 PM EST Inhaled Oxygen Concentration - - Weight 89.3 kg (196 lb 12.8 oz) 07/18/2024 1:05 PM EDT Height 167.6 cm (5' 6 ) 06/24/2021 1:24 PM EST Body Mass Index 31.76 06/24/2021 1:24 PM EST Plan of Treatment Upcoming Encounters Date Type Department Care Team (Late st Contact Info) Description 07/17/2025 1:15 PM EDT Office Visit [facility] [address] [facility] [address] [place] [phone] Mj Soni MD [address] [facility] [address] [place] [address] Health Maintenance Due Date Last Done Comments Breast Cancer Screening 1960 Pneumococcal Vaccine: Pediatrics (0 to 5 Years) and At-Risk Patients (6 to 64 Years) (1 of 2 - PCV) 1967 Colorectal Cancer Screening: Annual FOBT 2010 Colorectal Cancer Screening: Colonoscopy 2010 Colorectal Cancer Screening: Sigmoidoscopy 2010 Influenza Vaccine (#1) 2024 , 01/13/2019, 03/16/2018, Additional history exists Hepatitis B Vaccine Aged Out No longe r eligible based on patient's age to complete this topic Procedures Procedure Name Priority Date/Time Associated Diagnosis Comments URINALYSIS WITH MICROSCOPIC Routine 07/11/2024 1:26 PM EST Nephrolithiasis Hypertensive disorder RENAL FUNCTION PANEL Routine 07/11/2024 1:26 PM EST Nephrolithiasis Hypertensive disorder PROTEIN / CREATININE RATIO, URINE Routine 07/11/2024 1:26 PM EST Nephrolithiasis Hypertensive disorder MICROSCOPIC EXAMINATION - DO NOT USE Routine 07/11/2024 1:26 PM EST from Last 3 Months Results * Microscopic Examination (07/11/2024 1:26 PM EST) WBC, Urine 0-5 0 - 5 /hpf [facility] RBC, Urine None seen 0 - 2 /hpf [facility] Squamous Epithelial, Urine None seen 0 - 10 /hpf [facility] Casts None seen None seen /lpf [facility] Bacteria, Urine None seen None seen/Few [facility] 07/11/2024 1:26 PM EST 07/11/2024 us Mj Soni MD LAB MICROBIOLOGY - GENERAL KENDALL MIRANDA Final Result [facility] [address] [place] [address] * Urine Protein / creatinine ratio (07/11/2024 1:26 PM EST) Creatinine, Ur 43.8 Not Estab. mg/dL [facility] Protein, Ur 5.6 Not Estab. mg/dL [facility] Urine Protein/Creatin ine Ratio 128 0 - 200 mg/g creat [facility] Urine (Urine, Clean Catch) 07/11/2024 1:26 PM EST 07/11/2024 us Mj Soni MD LAB URINE ORDERABLES Final Resu lt [facility] [address] [place] [address] * (ABNORMAL) Urinalysis with microscopic (07/11/2024 1:26 PM EST) Specific [place], Urine 1.012 1.005 - 1.030 [facility] pH Urine 7.5 5.0 - 7.5 [facility] Color, Urine Yellow Yellow [facility] Appearance Urine Clear [facility] WBC Esterase Urine Trace(A) Negative [facility] Protein, Ur Negative Negative/Tra ce [facility] Glucose, Ur Negative Negative [facility] [phone] Ketones, Urine Negative Negative [facility] Blood Urine Negative Negative [facility] Bilirubin Urine Negative Negative [facility] Urobilinogen Urine 0.2 0.2 - 1.0 mg/dL [facility] Nitrite, Urine Negative Negative [facility] Microscopic Examination See below: [facility] Comment:Microscopic was maxi cated and was performed. Urine (Urine, Clean Catch) 07/11/2024 1:26 PM EST 07/11/2024 Mj Soni MD LAB URINE ORDERABLES Final Resu lt [facility] [address] [place] [address] * Renal function panel (07/11/2024 1:26 PM EST) Glucose 84 70 - 99 mg/dL [facility] BUN 15 8 - 27 mg/dL [facility] Creatinine 0.67 0.57 - 1.00 mg/dL [facility] eGFR CKD-EPI CR 2020 98 >59 mL/min/1.7 3 [facility] BUN/Creatinine Ratio 22 12 - 28 [facility] Sodium 141 134 - 144 mmol/L [facility] Potassium 4.0 3.5 - 5.2 mmol/L [facility] Chloride 99 96 - 106 mmol/L [facility] Bicarbonate (CO2) 28 20 - 29 mmol/L [facility] Calcium 9.8 8.7 - 10.3 mg/dL [facility] Albumin 4.7 3.9 - 4.9 g/dL [facility] Phosphorus 3.4 3.0 - 4.3 mg/dL [facility] Blood (Blood, Venous) 07/11/2024 1:26 PM EST 07/11/2024 us Mj Soni MD LAB BLOOD ORDERABLES Final Resu lt [facility] [address] [place] [address] from Last 3 Months Insurance COMPREHENSIVE BENEFITS COMPREHENSIVE BENEFITS Care Teams Child Psychologist Relationship Specialty Start Date End Date Lizzie Everett PA [address] [facility] [address] [place], [place] PCP - General Physician Detective Supervisor 06/30/22
--- OUTSIDE RECORDS SUMMARY | 2024-08-08 16:58 | XMS_ITS | Encounter Summary ---
Author Organization [facility] Address [address] [place] [address] Care Team Providers Care Wharf Tender Name Role Phone Lizzie Everett PA-C Primary Care Provi kinsey Mj Soni MD Unavailable [phone] Adolfo Durant MD Unavailable [phone] Vinicius Solis MD Unavailable Encounter Details Date Type Department Care Team (Late st Contact Info) Description 10/19/2023 Scanned Document [facility] Gastroenterology, Scan Social History Tobacco Use Types Packs/Day [...] Description 10/17/2024 12:30 PM EDT Office Visit [address] [place] [address] Lizzie Everett PA-C [address] [place] [address] documented as of this encounter Visit Diagnoses Not on filedocumented in this encounter Care Teams Wharf Tender Relationship Specialty Start Date End Date Lizzie Everett PA-C [address] [place] [address] PCP - General Internal Medicine 10/12/23 07/28/24 Mj Soni MD [address] [place] [address] Nephrology 10/12/23 Adolfo Durant MD [address] [place] [address] Dr Lau [address] [place] [address] Referring Provider Obstetrics and Gynecology 10/12/23 Vinicius Solis MD [address] [place] [address] Dr Lau [address] [place] [address] Referring Provider Cardiology-Scan 10/12/23 Elisa Moulton [facility] Nurse Practitioner Sleep Medicine 10/05/23 Ajith Olson Physician Allergy and Immunology-Scan 10/05/23 documented as of this encounter
--- OUTSIDE RECORDS SUMMARY | 2024-08-08 16:58 | XMS_ITS ---
Author Name [facility] Organization Unknown Results Test Name/Text Value Interpretation Date Range Source Bacteria Ur Cult SEE NOTE Normal [id number] [facility] Hct VFr Bld Auto 43.4% Normal [id number] 35 - 45 [facility] Monocytes # Bld Auto 621cells/uL Normal [id number] 200 - 950 [facility] MCHC RBC Auto-mCnc 32.5g/dL Normal [id number] 32 - 36 [facility] RDW RBC Auto-Rto 13% Normal [id number] 11 - 15 [facility] Neutrophils # Bld Auto 3862cells/uL Normal [id number] 1500 - 7800 [facility] RBC Qn Auto 29.6pg Normal [id number] 27 - 33 [facility] Platelet # Bld Auto 306Thousand/uL Normal [id number] 14 0 - 400 [facility] RBC # Bld Auto 4.77Million/uL Normal [id number] 3.8 - 5 .1 [facility] Lymphocytes # Bld Auto 2650cells/uL Normal [id number] 850 - 3900 [facility] Lymphocytes/leuk NFr Bld Auto 36.3% Normal [id number] [facility] Eosinophil # Bld Auto 131cells/uL Normal [id number] 15 - 500 [facility] Monocytes/leuk NFr Bld Auto 8.5% Normal [id number] [facility] WBC # Bld Auto 7.3Thousand/uL Normal [id number] 3.8 - 1 0.8 [facility] Basophils # Bld Auto 37cells/uL Normal [id number] 0 - 200 [facility] Hgb Bld-mCnc 14.1g/dL Normal [id number] 11.7 - 15.5 QU EST PMV Bld Scar-Eliazar 10.6fL Normal [id number] 7.5 - 12 .5 [facility] MCV RBC Auto 91fL Normal [id number] 80 - 100 [facility] T Basophils/leuk NFr Bld Auto 0.5% Normal [id number] [facility] Eosinophil/leuk NFr Bld Auto 1.8% Normal [id number] [facility] Neutrophils/leuk NFr Bld Auto 52.9% Normal [id number] [facility] Bilirub Indirect SerPl-mCnc 0.8mg/dL(calc) Normal [id number] 0.2 - 1.2 [facility] Globulin Ser Calc-mCnc 2.1g/dL(calc) Normal [id number] 1.9 - 3.7 [facility] Albumin/Glob SerPl 2.1(calc) Normal [id number] 1 - 2.5 [facility] Albumin SerPl-mCnc 4.5g/dL Normal [id number] 3.6 - 5. 1 [facility] ALT SerPl-cCnc 11U/L Normal [id number] 6 - 29 QU EST Prot SerPl-mCnc 6.6g/dL Normal [id number] 6.1 - 8.1 Q [facility] Bil[facility] Direct SerPl-mCnc 0.2mg/dL Normal - [facility] AST SerPl-cCnc 14U/L Normal [id number] 10 - 35 QU EST Bilirub SerPl-mCnc 1mg/dL Normal [id number] 0.2 - 1. 2 [facility] ALP SerPl-cCnc 55U/L Normal [id number] 37 - 153 QU EST RBC #/area UrnS HPF 0-2 Normal [id number] - [facility] Glucose Ur Ql Strip NEGATIVE Normal - [facility] Nitrite Ur Ql Strip NEGATIVE Normal [id number] - [facility] Service Cmnt-Imp Normal [id number] [facility] Prot Ur Ql Strip TRACE Abnormal [id number] - [facility] Appearance Ur TURBID Abnormal - [facility] Hyaline Casts #/area UrnS LPF NONE SEEN Normal [id number] - [facility] Color Ur YELLOW Normal [id number] - [facility] Hgb Ur Ql Strip NEGATIVE Normal [id number] - Q [facility] CaOx Cry #/area UrnS HPF FEW Normal [id number] - [facility] Leukocyte esterase Ur Ql Strip NEGATIVE Normal [id number] - [facility] Bacteria #/area UrnS HPF NONE SEEN Normal [id number] - [facility] Bilirub Ur Ql Strip NEGATIVE Normal [id number] - [facility] Ketones Ur Ql Strip NEGATIVE Normal [id number] - [facility] Squamous #/area UrnS HPF NONE SEEN Normal [id number] - [facility] WBC #/area UrnS HPF 0-5 Normal [id number] - [facility] Sp Gr Ur Strip 1.026 Normal [id number] 1.001 - 1.035 [facility] pH Ur Strip 5.5 Normal [id number] 5 - 8 [facility] BUN/Creat SerPl SEE NOTE: Normal [id number] 6 - 22 Q [facility] Sodium SerPl-sCnc 139mmol/L Normal [id number] 135 - 146 [facility] BUN SerPl-mCnc 20mg/dL Normal [id number] 7 - 25 QU EST Glucose SerPl-mCnc 105mg/dL Above high normal [id number] 65 - 99 [facility] eGFRcr SerPlBld CKD-EPI 2020 98mL/min/1.73m2 Normal [id number] - [facility] CO2 SerPl-sCnc 28mmol/L Normal [id number] 20 - 32 QU EST Chloride SerPl-sCnc 101mmol/L Normal [id number] 98 - 11 0 [facility] Creat SerPl-mCnc 0.67mg/dL Normal [id number] 0.5 - 1.05 [facility] Potassium SerPl-sCnc 3.7mmol/L Normal [id number] 3.5 - 5.3 [facility] Calcium SerPl-mCnc 9.7mg/dL Normal [id number] 8.6 - 10 .4 [facility] Cholest SerPl-mCnc 213mg/dL Above high normal [id number] - 200 [facility] Cholest/HDLc SerPl 3.7(calc) Normal [id number] - 5 [facility] Trigl SerPl-mCnc 134mg/dL Normal [id number] - 150 [facility] NonHDLc SerPl-mCnc 156mg/dL(calc) Above high normal [id number] - 130 [facility] HDLc SerPl-mCnc 57mg/dL Normal [id number] - Q [facility] LDLc SerPl Calc-mCnc 131mg/dL(calc) Above high normal [id number] [facility] HbA1c MFr Bld 5.5%oftotalHgb Normal [id number] - 5.7 [facility] 25(OH)D3+25(OH)D2 SerPl-mCnc 50ng/mL Normal [id number] 30 - 100 [facility] TSH SerPl-aCnc 0.87mIU/L Normal [id number] 0.4 - 4.5 QU EST Encounters Encounter Type Encounter Reason Primary Diagnosis Location Date Ambulatory Follow-up Follow-up [facility] 06/07/2024 Ambulatory Encounter for general adult medical examination without abnormal findings Encounter for general adult medical examination without abnormal findings [facility] 10/12/2023 Care Team Organization Name Specialty Phone Email Start Date End Da te [facility] ZAK Primary Care 10/12/2023 [facility] TRISHA CRESPO Primary Care 10/12/2023 [facility] NO PCP Primary Care 05/31/2023
--- OUTSIDE RECORDS SUMMARY | 2024-08-08 16:58 | XMS_ITS | Encounter Summary ---
Author Organization [facility] Address [address] [place] [address] Care Team Providers Care Industrial Services Worker Name Role Phone Lizzie Everett PA-C Primary Care Provi kinsey Mj Soni MD Unavailable [phone] Adolfo Durant MD Unavailable [phone] Vinicius Solis MD Unavailable Encounter Details Date Type Department Care Team (Late st Contact Info) Description 04/01/2024 Scanned Document [address] [address] Pcp, No Social History Tobacco Use Types Packs/Day Years [...] Encounters Date Type Department Care Team (Late Contact Info) Description 10/17/2024 12:30 PM EDT Office Visit [address] [place] [phone] Lizzie Everett PA-C [address] [place] [address], [place] [address] documented as of this encounter Visit Diagnoses Not on filedocumented in this encounter Care Teams Industrial Services Worker Relationship Specialty Start Date End Date Lizzie Everett PA-C [address] [place] [address] PCP - General Internal Medicine 10/12/23 07/28/24 Mj Soni MD [address] [place] [address] Nephrology 10/12/23 Adolfo Durant MD [address] [place] [address] Dr Lau [address] [place] [address] Referring Provider Obstetrics and Gynecology 10/12/23 Vinicius Solis MD [address] [place] [address] Dr Lau [address] [place] [address] Referring Provider Cardiology-Scan 10/12/23 Elisa Moulton [facility] Nurse Practitioner Sleep Medicine 10/05/23 Ajith Olson Physician Allergy and Immunology-Scan 10/05/23 documented as of this encounter
--- OUTSIDE RECORDS SUMMARY | 2024-08-08 16:58 | XMS_ITS ---
Author Organization [facility] Address [address] [facility] [address] [place] [phone] Care Team Providers Care Environmental Services Worker Name Role Phone Lm Larsen MD Primary Care Provider Fernando Xiong Jr REASON FOR VISIT results of biopsies Encounters Encounter Location Date Provider Diagnosis [facility] [address] [facility] [address] [place] [phone] 03/07/2024 Fernando Poole Jr Plan Of Treatment Next Appt Details Provider Name:Fernando crawford Jr, 05/29/2025 09:00:00 AM, [address] [facility], [address], [place], [address], Progress Notes * KIMI CROSSOB:1960 (63 yo F)Acc No.[id number]:03/07/2024 Patient:?AZUCENASTEFDOREEN DILLARDNDY :1960???Age:63 Y???Sex:Female Address:[place] [address] * true * Date:? Generated for Printi ng/Faxing/eTransmitting on:?08/08/2024 04:57 PM EDT
--- OUTSIDE RECORDS SUMMARY | 2024-08-08 16:58 | XMS_ITS | Encounter Summary ---
Author Organization [facility] Address [address] [place] [address] Care Team Providers Care Assignment Agent Name Role Phone Lizzie Everett PA-C Primary Care Provi kinsey Mj Soni MD Unavailable [phone] Adolfo Durant MD Unavailable [phone] Vinicius Solis MD Unavailable Encounter Details Date Type Department Care Team (Late st Contact Info) Description 10/19/2023 Scanned Document [facility] GASTRO SCAN Gastroenterology, Scan Social History [...] Description 10/17/2024 12:30 PM EDT Office Visit [address] [place] [address] Lizzie Everett PA-C [address] [place] [phone] documented as of this encounter Visit Diagnoses Not on filedocumented in this encounter Care Teams Assignment Agent Relationship Specialty Start Date End Date Lizzie Everett PA-C [address] [place] [address] PCP - General Internal Medicine 10/12/23 07/28/24 Mj Soni MD [address] [place] [address] Nephrology 10/12/23 Adolfo Durant MD [address] [place] [address] Dr Lau [address] [place] [phone] Referring Provider Obstetrics and Gynecology 10/12/23 Vinicius Solis MD [address] [place] [address] Dr Lau [address] [place] [id number] Referring Provider Cardiology-Scan 10/12/23 Elisa Moulton [facility] Nurse Practitioner Sleep Medicine 10/05/23 Ajith Olson Physician Allergy and Immunology-Scan 10/05/23 documented as of this encounter
--- OUTSIDE RECORDS SUMMARY | 2024-08-08 16:58 | XMS_ITS | Encounter Summary ---
Author Organization [facility] Address [address] [place] [address] Care Team Providers Care Claim Investigator Name Role Phone Lizzie Everett PA-C Primary Care Provi kinsey Mj Soni MD Unavailable [phone] Adolfo Durant MD Unavailable [phone] Vinicius Solis MD Unavailable Encounter Details Date Type Department Care Team (Late st Contact Info) Description 10/15/2023 Scanned Document [address] [phone] Primary Care, Scan Social History [...] Description 10/17/2024 12:30 PM EDT Office Visit [address] [phone] Lizzie Everett PA-C [address] [place], [place] [address], [place] [address] documented as of this encounter Visit Diagnoses Not on filedocumented in this encounter Care Teams Claim Investigator Relationship Specialty Start Date End Date Lizzie Everett PA-C [address] [place] [address] PCP - General Internal Medicine 10/12/23 07/28/24 Mj Soni MD [address] [place] [address] Nephrology 10/12/23 Adolfo Durant MD [address] [place] [address] Dr Lau [address] [place] [phone] Referring Provider Obstetrics and Gynecology 10/12/23 Vinicius Solis MD [address] [place] [address] Dr Lau [address] [place] [phone] Referring Provider Cardiology-Scan 10/12/23 Elisa Moulton [facility] Nurse Practitioner Sleep Medicine 10/05/23 Ajith Olson Physician Allergy and Immunology-Scan 10/05/23 documented as of this encounter
== END 2024-08-08 16:07 | disposition home or self-care (01) ==
LOC: HO.HMCH 15:02
DX: I10 Essential (primary) hypertension (principal); K21.9 Gastro-esophageal reflux disease without esophagitis; J45.909 Unspecified asthma, uncomplicated; G47.30 Sleep apnea, unspecified; K90.0 Celiac disease; E78.00 Pure hypercholesterolemia, unspecified; F32.A Depression, unspecified; F41.9 Anxiety disorder, unspecified

== ENCOUNTER 2024-11-21 15:01 | Outpatient (AMB) | payer BC, SELFPAY ==
--- OUTSIDE RECORDS SUMMARY | 2024-03-01 05:20 | XMS_ITS ---
Author Organization [facility] Address [address] [place] [address] [place] [phone] Care Team Providers Care Milieu Counselor Name Role Phone Lm Larsen MD Primary Care Provider Fernando Xiong Jr [phone] REASON FOR VISIT celiac disease Encounters Encounter Location Date Provider Diagnosis [facility] Outpatient [address] [place] [phone] 03/01/2024 Fernando Poole Jr Celiac disease K90.0 Assessments Encounter Date Diagnosis (ICD Code) Assessment Notes Treatment Notes Treatment Clinical Notes Section Notes 03/01/2024 Celiac disease (ICD-10 - K90.0) Plan Of Treatment Next Appt Details Provider Name:Fernando crawford Jr, 05/29/2025 09:00:00 AM, [address] [place] [address], Suite [facility], [place], [address], Progress Notes * TAYCHERYLNICOLASOB:1960 (64 yo F)Acc No.[id number]:03/01/2024 EGD/MAC Patient: JUAN J ALVES Provider: Guillaume Poole MD :1960 A ge:63 Y S ex:Female Date:03/01/2024 Address:[facility] [place] Pcp:Lm Larsen MD Subjective: * Chief Complaints: [...] Guillaume Poole MD Date: Generated for Vivian castillo/Frank/Nehaitting on: 0 11/21/2024 04:17 PM EDT
--- NOTE | 2024-11-21 15:12 | MHC.PC.OV ---
Vital Signs 11/21/24 15:13 Height 5 ft 4.96 in Weight 196 lb 4 oz BMI 32.7 BP 132/76 Blood Pressure Location Lt brachial Position Sitting Pulse 83 Pulse Source Pulse Oximeter Pulse Oximetry (%) 95 Oxygen Delivery Method Room Air Intake Visit Reasons: PHYSICAL Probation And Parole Officer Required: No Accompanied by: Self / Same As Patient Allergies shellfish derived Allergy (Mild, Verified 11/21/24 15:17) Anaphylaxis cefaclor (From Ceclor) Allergy (Verified 11/21/24 15:17) Hives codeine Allergy (Verified 11/21/24 15:17) Nausea and Vomiting erythromycin base Allergy (Verified 11/21/24 15:17) Hives gentamicin Allergy (Verified 11/21/24 15:17) Hives moxifloxacin (From Avelox) Allergy (Verified 11/21/24 15:17) Hives sulfamethoxazole (From Bactrim) Allergy (Verified 11/21/24 15:17) Hives trimethoprim (From Bactrim) Allergy (Verified 11/21/24 15:17) Hives tree nuts Allergy (Mild, Uncoded 11/21/24 15:17) Anaphylaxis Medication List - Last Reconciled 11/21/24 by Lm Larsen MD albuterol sulfate 90 mcg/actuation 1 inh inhalation QID amlodipine 1 tab PO DAILY cetirizine (Zyrtec) 10 mg PO DAILY cholecalciferol (vitamin D3) (Vitamin D3) 25 mcg PO DAILY epinephrine IM DIRECTED fluticasone propionate 50 mcg/actuation 1 spray intranasal DAILY hydrochlorothiazide 1 tab PO DAILY losartan 50 mg PO DAILY magnesium 200 mg PO BID multivitamin 1 tab PO DAILY omeprazole 1 cap PO DAILY potassium citrate ER 10 mEq PO TID Tobacco use date assessed: 08/08/24 Dental Screening Dental Screen Date: 08/08/24 HPI PHYSICAL HPI Details November 2023total 241 LDL HDL 59 trigly 237 LDL 144 06/2024 FBS 105 Cholesterol TC 213 hndl 57 Trigly 134 LDL 131 AIC 5.5 PFSH Medical History (Updated 11/21/24 @ 15:59 by Lm Larsen MD) Arrhythmia Celiac disease Sleep apnea HTN (hypertension) Venous (peripheral) insufficiency Asthma Hepatitis C antibody test positive Nephrolithiasis GERD (gastroesophageal reflux disease) IBS (irritable bowel syndrome) Environmental allergies Surgical History (Updated 11/21/24 @ 15:44 by Lm Larsen MD) History of tonsillectomy Status post phlebectomy H/O lithotripsy Hx laparoscopic cholecystectomy Hx of right knee surgery Hx of dilation and curettage Hx of section Hx of colonoscopy History of esophagogastroduodenoscopy (EGD) Family History (Updated 11/21/24 @ 15:45 by Lm Larsen MD) Maternal Grandmother Heart attack Breast cancer Maternal Aunt Breast cancer Other CVA (cerebral vascular accident) Substance use disorder Social History (Updated 11/21/24 @ 15:47 by Lm Larsen MD) Housing: House Alcohol intake: current Alcohol intake frequency: a few times a month Alcohol type: wine Comment: once Q 2 week 2 glasses Patient Tobacco Use Status: Former Tobacco user Tobacco use type: Cigarette Years Smoked: 1989 e-Cigarette/Vaping Use: Never Used Second Hand Smoke Exposure: Yes service: No Current occupational status: employed Current occupation: [employer] Cognitive needs: No Hearing needs: No Vision needs: Yes (Glasses) Questionnaire Thrive Questionnaire Date Thrive assessed: 11/21/24 I am a: Patient What is your living situation today?: I have a steady place to live Within the past 12 months, did the food you bought not last and you didn't have the money to get more?: Never true Within the past 12 months, did you worry whether your food would run out before you got money to buy more?: Never true Do you have trouble paying for medicines?: No Do you have trouble getting transportation to medical appointments?: No Do you have trouble paying your heating and electricity bill?: No Do you have trouble taking care of your child, family member or friend?: No Do you have trouble with day-to-day activities such as bathing, preparing meals, shopping, managing finances, etc.?: No Are you currently unemployed and looking for a job?: No Are you interested in more education?: No Please select the resources that you would like help with: None Currently or been in a relationship where the following occur: No concerns reported THRIVE Score: 0 KAMAR-7 AMB Questionnaire KAMAR-7 Date KAMAR - 7 assessed: 08/08/24 Source: Developed by Drs. Cristobal Wu, Nasrin Plaza, Jamarcus Michael and colleagues, with an educational fadi from [employer]. Review of Systems Const Denies poor appetite and Denies weakness Eyes Denies no additional complaints ENT Reports Normal hearing present, Denies dizziness, Denies nasal congestion, Denies tinnitus and Denies sore throat Card Denies chest pain, Denies syncope, Denies rapid heart rate and Denies dyspnea Resp Denies cough and Denies dyspnea GI Denies change in stool character, Reports constipation, Denies diarrhea, Denies nausea and Denies vomiting Denies urinary frequency, Denies difficulty voiding and Denies dysuria Neuro Reports Normal hearing present, Denies confusion, Denies dizziness, Denies syncope and Denies weakness Psych Denies confusion Physical exam (Primary Care) Vital Signs: Last Vital Signs Pulse 83 11/21/24 15:13 BP 132/76 11/21/24 15:13 Pulse Ox 95 11/21/24 15:13 Oxygen Delivery Method Room Air 11/21/24 15:13 BMI result Body Mass Index 32.7 Tobacco/Smoking Status: Tobacco use Status Tobacco use date assessed 08/08/24 11/21/24 15:15 Patient Tobacco Use Status Former Tobacco user 11/21/24 15:47 Tobacco use type Cigarette 11/21/24 15:47 e-Cigarette/Vaping Use Never Used 11/21/24 15:47 Thrive Assessment: Date of Thrive Assessment Date Thrive assessed 11/21/24 11/21/24 15:15 Currently or been in a relationship where the following occur: No concerns reported Const General: No confusion Orientation/consciousness: No confusion HENMT Head: Yes normocephalic Ears: external ears normal and TM's normal bilaterally Face and sinus: Yes normal facial exam Mouth: moist mucous membranes Throat: Yes tonsils normal Eyes Conjunctivae: conjunctivae normal Pupils: Equal, round and reactive pupils present and Pupil accommodation reflex normal Direct Ophthalmoscopy: normal light reflex Neck Neck: No lymphadenopathy Thyroid: Thyroid normal Chest Chest palpation & inspection: normal inspection of the chest Resp Effort & Inspection: normal respiratory effort and no audible wheezes Auscultation: clear to auscultation bilaterally, no crackles, no wheezes and lung sounds not diminished Cardio Rate: regular rate Rhythm: regular rhythm Peripheral pulses: radial pulses present and dorsalis pedis present GI Palpation (GI): no masses Auscultation: normal bowel sounds and normoactive bowel sounds Rectal Exam - Female: deferred Skin General skin exam: no rashes or lesions noted Rashes: no rashes Neuro General: No confusion Cranial nerves: Yes Equal, round and reactive pupils present and Yes Normal hearing present Cognition (Neuro): normal cognition Gait exam (Neuro): Normal gait present Motor exam (neuro): 5/5 motor strength present throughout Deep tendon reflexes (DTR's): Right brachioradialis reflex intensity grade: 2+, Left brachioradialis reflex intensity grade: 2+, Right patellar reflex intensity grade: 2+ and Left patellar reflex intensity grade: 2+ Extrem General: No edema Coding Level of Care Code Est Pt Prev Care 40-64y(06220) Diagnoses Annual physical exam Z00.00 HTN (hypertension) I10 Hypercholesterolemia E78.00 GERD (gastroesophageal reflux disease) K21.9 Hepatic steatosis K76.0 Celiac disease K90.0 Bilateral renal stones N20.0 Sleep apnea G47.30 Generalized anxiety disorder F41.1 Obesity (BMI 30-39.9) E66.9 Impaired fasting blood sugar R73.01 Assessment & Plan Assessment & Plan (1) Annual physical exam: Code(s): Z00.00 - Encounter for general adult medical examination without abnormal findings Category: Medical Plan: Patient is advised to eat healthy, keep well hydrated, keep active and have adequate sleep. (2) HTN (hypertension): Code(s): I10 - Essential (primary) hypertension Category: Medical Plan: Continue with blood pressure medication. Decrease salt intake and exercise on amlodipine losartan and hydrochlorothiazide (3) Hypercholesterolemia: Code(s): E78.00 - Pure hypercholesterolemia, unspecified Category: Medical Plan: Avoid fried foods, chicken skin, eggs, butter margarine, pastries and meat. Be it pork or beef they have a lot of cholesterol LDL goal of less than 130 and triglyceride of less than 150 (4) GERD (gastroesophageal reflux disease): Code(s): K21.9 - Gastro-esophageal reflux disease without esophagitis Category: Medical Plan: Avoid the foods that causes that usually spicy foods, tomato products, juices, coffee, soda and foods that your sensitive to. After eating do not lie down, allow 3-4 hours before in lie down. And keep the head of bed above 30 degrees to avoid the acid from going up. (5) Hepatic steatosis: Code(s): K76.0 - Fatty (change of) liver, not elsewhere classified Category: Medical Plan: Low-fat diet and exercise (6) Celiac disease: Comment: will have joint inflammation/bloating/gas Code(s): K90.0 - Celiac disease Category: Medical Plan: Continue to follow-up with Gastroenterology (7) Bilateral renal stones: Code(s): N20.0 - Calculus of kidney Category: Medical Plan: Keep well hydrated. (8) Sleep apnea: Comment: [facility] wears CPAP Code(s): G47.30 - Sleep apnea, unspecified Category: Medical Plan: Continue to use the CPAP more than 4 hours a night and benefits from this (9) Generalized anxiety disorder: Code(s): F41.1 - Generalized anxiety disorder Category: Medical (10) Obesity (BMI 30-39.9): Code(s): E66.9 - Obesity, unspecified Category: Medical Plan: Diet and exercise (11) Impaired fasting blood sugar: Code(s): R73.01 - Impaired fasting glucose Category: Medical Plan History of Present Illness The patient is a 64-year-old female presenting for a wellness visit and management of chronic conditions. She has a history of celiac disease, which requires her to maintain a strict gluten-free diet. The patient reports that managing her diet is challenging, as she must carefully read labels to avoid gluten. The patient has obstructive sleep apnea and uses a CPAP machine regularly, which she finds beneficial. She reports that her sleep quality has improved since using the CPAP, although she occasionally experiences palpitations upon waking, which she attributes to anxiety. Hypertension is managed with a combination of amlodipine, losartan, and hydrochlorothiazide. The patient monitors her blood pressure regularly and reports it is well-controlled. The patient has asthma, which is generally well-controlled, and she rarely needs to use her albuterol inhaler. She notes that hot, humid weather can exacerbate her symptoms slightly. The patient has a history of peripheral vascular disease and venous insufficiency, for which she wears compression stockings daily. She has undergone procedures to manage her venous insufficiency in the past. Gastroesophageal reflux disease (GERD) is managed with omeprazole, and the patient follows a low-fat diet to help control symptoms. She continues to follow up with gastroenterology for ongoing management. The patient has hypercholesterolemia, with a treatment goal of maintaining LDL cholesterol below 130 mg/dL and triglycerides below 150 mg/dL. She adheres to dietary modifications to help manage her cholesterol levels. Generalized anxiety disorder is noted, and the patient reports experiencing stress related to her 's health issues. She finds that magnesium supplements help with muscle cramps and sleep disturbances. The patient has hepatic steatosis and bilateral renal calculi, which are monitored by her healthcare providers. She sees a cardiovascular specialist annually and is on potassium citrate to manage her renal condition. Health Maintenance - Colonoscopy performed in June 2020, follow-up recommended in five years - Regular follow-up with gastroenterology for GERD management - Annual nephrology visits for renal calculi management - CPAP usage for obstructive sleep apnea - Compression stockings for venous insufficiency - Dietary modifications for hypercholesterolemia and celiac disease Social History - The patient is and reports significant stress related to her 's health issues. - She quit smoking 35 years ago and consumes alcohol occasionally, about three to four glasses a month. - The patient follows a gluten-free diet due to celiac disease and avoids caffeine and soda. - She engages in limited physical activity and acknowledges the need for weight loss. Review of Systems - General: Reports stress related to 's health issues. Denies fever or weight loss. - Cardiovascular: Reports palpitations upon waking. Denies chest pain or syncope. - Respiratory: Reports occasional dyspnea in hot, humid weather. Denies cough or wheezing. - Gastrointestinal: Reports adherence to a gluten-free diet. Denies nausea or vomiting. - Neurological: Reports muscle cramps and sleep disturbances. Denies dizziness or headaches. - Genitourinary: Denies dysuria or hematuria. Physical Exam General: Cooperative, healthy appearing, comfortable, no acute distress and well developed Orientation: Patient oriented x3 Limitations: No limitations Head: Normal to inspection Ears: Hearing grossly normal bilaterally Nose: Normal external nose present Face and sinus: Normal facial exam Eyes: Appearance normal, both eyes and all related structures Neck: Normal visual inspection and Yes full ROM Respiratory: Normal respiratory effort and able to speak in complete sentences. Clear to auscultation bilaterally Cardiovascular: Regular rate and rhythm. Normal S1 and S2 GI: Normal to inspection. Soft to palpation and nontender Skin: No rashes or lesions noted Neuro: Patient oriented x3 Extremities: Normal to inspection Results - Colonoscopy June 2020: No significant findings - Blood work June 2020: Mildly elevated glucose, normal hemoglobin A1c Plan The patient will continue her current management plan for celiac disease, maintaining a strict gluten-free diet and monitoring for any symptoms. For obstructive sleep apnea, she will continue using her CPAP machine nightly, which has been beneficial in improving her sleep quality. Hypertension management will continue with her current medications, including amlodipine, losartan, and hydrochlorothiazide, with regular monitoring of blood pressure. Asthma management will involve continued use of albuterol as needed, particularly in hot, humid weather. For peripheral vascular disease and venous insufficiency, the patient will continue wearing compression stockings and follow up with her healthcare provider as needed. Gastroesophageal reflux disease will be managed with omeprazole and dietary modifications, with ongoing follow-up with gastroenterology. Hypercholesterolemia will be managed through dietary modifications, aiming to maintain LDL cholesterol below 130 mg/dL and triglycerides below 150 mg/dL. Generalized anxiety disorder will be monitored, with consideration of magnesium supplements to aid with muscle cramps and sleep disturbances. The patient will continue annual nephrology visits for monitoring of hepatic steatosis and bilateral renal calculi, with potassium citrate as part of her management plan. Patient was informed and verbally consented to the use of an ambient scribe for clinic note documentation during this visit. Discussion Notes During the visit, I discussed with the patient the importance of maintaining her gluten-free diet to manage celiac disease and the benefits of using her CPAP machine for obstructive sleep apnea. We reviewed her hypertension management plan, emphasizing the need for regular blood pressure monitoring and adherence to her medication regimen. I advised her to continue using her albuterol inhaler as needed for asthma, especially in hot, humid conditions. We also discussed the management of her GERD with omeprazole and dietary changes, and the importance of follow-up with gastroenterology. The patient was reminded to wear compression stockings for venous insufficiency and to continue her nephrology follow-ups for renal calculi management. We talked about the role of dietary modifications in managing hypercholesterolemia and the potential benefits of magnesium supplements for anxiety-related symptoms. Patient Instructions - Continue following a strict gluten-free diet to manage celiac disease. - Use CPAP machine nightly for obstructive sleep apnea. - Take prescribed medications for hypertension and monitor blood pressure regularly. - Use albuterol inhaler as needed for asthma, especially in hot, humid weather. - Follow a low-fat diet and take omeprazole for GERD management. - Wear compression stockings daily for venous insufficiency. - Attend regular follow-ups with nephrology for renal calculi management. - Consider magnesium supplements to help with muscle cramps and sleep disturbances. Orders: Orders Complete Blood Count Auto Diff Today E78.00 - Pure hypercholesterolemia, unspecified Comprehensive Met. Panel Today E78.00 - Pure hypercholesterolemia, unspecified Lipid Panel Today E78.00 - Pure hypercholesterolemia, unspecified Magnesium Today E78.00 - Pure hypercholesterolemia, unspecified Hemoglobin A1c Today E78.00 - Pure hypercholesterolemia, unspecified Free T4 (Free Thyroxine) Today E78.00 - Pure hypercholesterolemia, unspecified Thyroid Stimulating Hormone Today E78.00 - Pure hypercholesterolemia, unspecified Vitamin B12 and Folate Today E78.00 - Pure hypercholesterolemia, unspecified ECG 12 lead EKG Today E78.00 - Pure hypercholesterolemia, unspecified
[2024-11-21 15:13] VITALS: BP 132/76; PULSE 83; O2SAT 95; BMI 32.7
--- OUTSIDE RECORDS SUMMARY | 2024-11-21 16:17 | XMS_ITS ---
Author Name [facility] Organization Unknown Results Test Name/Text Value Interpretation Date Range Source TSH SerPl-aCnc 0.87 mIU/L Normal 06/23/2024 0.4 - 4.[address] [facility] Neutrophils # Bld Auto 3862.0 cells/uL Normal 06/23/2024 1500 - 7800 [facility] Platelet # Bld Auto 306.0 Thousand/uL Normal 06/23/2024 140 - 400 [facility] Neutrophils/leuk NFr Bld Auto 52.9 % Normal 06/23/2024 [facility] MCH RBC Qn Auto 29.6 pg Normal 06/23/2024 27 - [address] Eosinophil/leuk NFr Bld Auto 1.8 % Normal 06/23/2024 [facility] Hct VFr Bld Auto 43.4 % Normal 06/23/2024 35 - 45 QU EST MCHC RBC Auto-mCnc 32.5 g/dL Normal 06/23/2024 32 - 36 [facility] RBC # Bld Auto 4.77 Million/uL Normal 06/23/2024 3.8 - 5. 1 [facility] RDW RBC Auto-Rto 13.0 % Normal 06/23/2024 11 - 15 QU EST Lymphocytes/leuk NFr Bld Auto 36.3 % Normal 06/23/2024 [facility] Monocytes # Bld Auto 621.0 cells/uL Normal 06/23/2024 200 - 950 [facility] Hgb Bld-mCnc 14.1 g/dL Normal 06/23/2024 11.7 - 15.5 [facility] T PMV Bld Scar-Eliazar 10.6 fL Normal 06/23/2024 7.5 - 12.5 [facility] Monocytes/leuk NFr Bld Auto 8.5 % Normal 06/23/2024 [facility] Basophils/leuk NFr Bld Auto 0.5 % Normal 06/23/2024 [facility] Lymphocytes # Bld Auto 2650.0 cells/uL Normal 06/23/2024 850 - 3900 [facility] Eosinophil # Bld Auto 131.0 cells/uL Normal 06/23/2024 15 - 500 [facility] MCV RBC Auto 91.0 fL Normal 06/23/2024 80 - 100 [facility] Basophils # Bld Auto 37.0 cells/uL Normal 06/23/2024 0 - 200 [facility] WBC # Bld Auto 7.3 Thousand/uL Normal 06/23/2024 3.8 - 10 .8 [facility] Color Ur YELLOW Normal 06/23/2024 - [facility] Hyaline Casts #/area UrnS LPF NONE SEEN Normal 06/23/2024 - [facility] RBC #/area UrnS HPF 0-2 Normal 06/23/2024 - [facility] Bacteria #/area UrnS HPF NONE SEEN Normal 06/23/2024 - [facility] Ketones Ur Ql Strip NEGATIVE Normal 06/23/2024 - [facility] Glucose Ur Ql Strip NEGATIVE Normal 06/23/2024 - [facility] WBC #/area UrnS HPF 0-5 Normal 06/23/2024 - [facility] Bilirub Ur Ql Strip NEGATIVE Normal 06/23/2024 - [facility] Service Cmnt-Imp Normal 06/23/2024 QU EST CaOx Cry #/area UrnS HPF FEW Normal 06/23/2024 - [facility] Leukocyte esterase Ur Ql Strip NEGATIVE Normal 06/23/2024 - [facility] Prot Ur Ql Strip TRACE Abnormal 06/23/2024 - QU EST Squamous #/area UrnS HPF NONE SEEN Normal 06/23/2024 - [facility] Appearance Ur TURBID Abnormal 06/23/2024 - [facility] Nitrite Ur Ql Strip NEGATIVE Normal 06/23/2024 - [facility] Hgb Ur Ql Strip NEGATIVE Normal 06/23/2024 - [facility] Sp Gr Ur Strip 1.026 Normal 06/23/2024 1.001 - 1.035 [facility] pH Ur Strip 5.5 Normal 06/23/2024 5 - 8 [facility] Bilirub SerPl-mCnc 1.0 mg/dL Normal 06/23/2024 0.2 - 1.2 [facility] Prot SerPl-mCnc 6.6 g/dL Normal 06/23/2024 6.1 - 8.[address] Albumin/Glob SerPl 2.1 (calc) Normal 06/23/2024 1 - 2.5 [facility] Globulin Ser Calc-mCnc 2.1 g/dL (calc) Normal 06/23/2024 1.9 - 3.7 [facility] Indirect SerPl-mCnc 0.8 mg/dL (calc) Normal 06/23/2024 0.2 - 1.2 [facility] ALT SerPl-cCnc 11.0 U/L Normal 06/23/2024 6 - 29 [facility] T AST SerPl-cCnc 14.0 U/L Normal 06/23/2024 10 - 35 [facility] T Bilirub Direct SerPl-mCnc 0.2 mg/dL Normal 06/23/2024 - [facility] Albumin SerPl-mCnc 4.5 g/dL Normal 06/23/2024 3.6 - 5.1 [facility] ALP SerPl-cCnc 55.0 U/L Normal 06/23/2024 37 - 153 [facility] T Creat SerPl-mCnc 0.67 mg/dL Normal 06/23/2024 0.5 - 1.05 [facility] Potassium SerPl-sCnc 3.7 mmol/L Normal 06/23/2024 3.5 - 5 .3 [facility] BUN/Creat SerPl SEE NOTE: Normal 06/23/2024 6 - [address] Calcium SerPl-mCnc 9.7 mg/dL Normal 06/23/2024 8.6 - 10.4 [facility] Chloride SerPl-sCnc 101.0 mmol/L Normal 06/23/2024 98 - 1 10 [facility] Sodium SerPl-sCnc 139.0 mmol/L Normal 06/23/2024 135 - 14 6 [facility] Glucose SerPl-mCnc 105.0 mg/dL Above high normal 06/23/2024 65 - 99 [facility] BUN SerPl-mCnc 20.0 mg/dL Normal 06/23/2024 7 - [address] eGFRcr SerPlBld CKD-EPI 2020 98.0 mL/min/1.73m2 Normal 06/23/2024 - [facility] CO2 SerPl-sCnc 28.0 mmol/L Normal 06/23/2024 20 - 32 QU EST 25(OH)D3+25(OH)D2 SerPl-mCnc 50.0 ng/mL Normal 06/23/2024 30 - 100 [facility] HbA1c MFr Bld 5.5 % of total Hgb Normal 06/23/2024 - 5.7 [facility] LDLc SerPl Calc-mCnc 131.0 mg/dL (calc) Above high normal 06/23/2024 [facility] Trigl SerPl-mCnc 134.0 mg/dL Normal 06/23/2024 - 150 [facility] Cholest/HDLc SerPl 3.7 (calc) Normal 06/23/2024 - 5 [facility] Cholest SerPl-mCnc 213.0 mg/dL Above high normal 06/23/2024 - 200 [facility] NonHDLc SerPl-mCnc 156.0 mg/dL (calc) Above high normal 06/23/2024 - 130 [facility] HDLc SerPl-mCnc 57.0 mg/dL Normal 06/23/2024 - QU EST Bacteria Ur Cult SEE NOTE Normal 06/24/2024 QU EST Encounters Encounter Type Encounter Reason Primary Diagnosis Location Date Ambulatory Follow-up Follow-up [facility] 06/07/2024 Ambulatory Encounter for general adult medical examination without abnormal findings Encounter for general adult medical examination without abnormal findings [facility] 10/12/2023 Care Team Organization Name Specialty Phone Email Start Date End Da te [facility] ZAK Primary Care 10/12/2023 [facility] TRISHA CRESPO Primary Care 10/12/2023 [facility] NO PCP Primary Care 05/31/2023
--- OUTSIDE RECORDS SUMMARY | 2024-11-21 16:17 | XMS_ITS | Encounter Summary ---
Author Organization [facility] Address [address] [facility] [address] [place] [address] Phone Care Team Providers Care Ward Helper Name Role Phone Lizzie Everett Primary Care Provider [phone] Encounter Details Date Type Department Care Team (Late Contact Info) Description 02/25/2022 Telephone [facility] [address] [facility] [address] [place] [address] Mj Soni MD [address] [facility] [address] [place] [address] Social History Tobacco Use Types [...] to speak with you for guidance. CB# [phone] Thank you documented in this encounter Plan of Treatment Upcoming Encounters Date Type Department Care Team (Late st Contact Info) Description 07/17/2025 1:15 PM EDT Office Visit [facility] [address] [address] Mj Soni MD [address] [address] documented as of this encounter Visit Diagnoses Not on filedocumented in this encounter Care Teams Ward Helper Relationship Specialty Start Date End Date Lizzie Everett PA [address] [facility] [address] [place], [place] PCP - General Physician Concrete Placement Equipment Operator 06/30/22 documented as of this encounter
== END 2024-11-21 16:08 | disposition home or self-care (01) ==
LOC: HO.HMCH 15:02
PROVIDERS: Visit Provider Internal Medicine
DX: Z00.00 Encounter for general adult medical examination without abnormal findings (principal); I10 Essential (primary) hypertension; E78.00 Pure hypercholesterolemia, unspecified; K21.9 Gastro-esophageal reflux disease without esophagitis; E66.9 Obesity, unspecified; Z68.32 Body mass index [BMI] 32.0-32.9, adult; K76.0 Fatty (change of) liver, not elsewhere classified; K90.0 Celiac disease; N20.0 Calculus of kidney; G47.30 Sleep apnea, unspecified; F41.1 Generalized anxiety disorder; R73.01 Impaired fasting glucose

== ENCOUNTER 2025-03-07 10:23 | Outpatient (REF) | payer BC, SELFPAY ==
--- OUTSIDE RECORDS SUMMARY | 2024-03-01 05:20 | XMS_ITS ---
Author Organization [facility] Address [address] [place] [address] [place] [phone] Care Team Providers Care Manager Programs Name Role Phone Lm Larsen MD Primary Care Provider Fernando Xiong Jr REASON FOR VISIT celiac disease Encounters Encounter Location Date Provider Diagnosis [facility] [place] [address] [place] [phone] 03/01/2024 Fernando Poole Jr Celiac disease K90.0 Assessments Encounter Date Diagnosis (ICD Code) Assessment Notes Treatment Notes Treatment Clinical Notes Section Notes 03/01/2024 Celiac disease (ICD-10 - K90.0) Plan Of Treatment Next Appt Details Provider Name:Fernando crawford Jr, 06/05/2025 09:20:00 AM, [address] [place] [address], Suite [facility], [place], [address], Progress Notes * TAYCHERYLNICOLASOB:1960 (64 yo F)Acc No.[id number]:03/01/2024 EGD/MAC Patient: JUAN J ALVES Provider: Guillaume Poole MD :1960 A ge:63 Y S ex:Female Date:03/01/2024 Address:[facility] [id number] Pcp:Lm Larsen MD Subjective: * Chief Complaints: [...] MD Date: Generated for Vivian castillo/Frank/Petersonsmitting on: 12:46 PM EDT
[2025-03-07 10:35] LABS: MANUAL DIFF FLAG NO
[2025-03-07 10:45] LABS: Hematocrit 43.1 % (37.0-47.0); Hemoglobin 14.5 g/dl (12.0-16.0); Imm Gran Abs Auto 0.01 X10*3/uL (0.00-0.03); Imm Gran Pct Auto 0.1 % (0.0-0.4); Lymphocytes Absolute Auto 3.0 X10*3/uL (1.2-4.9); Mean Corpuscular HGB Conc 33.6 g/dl (31.0-35.0); Mean Corpuscular Hemoglobin 29.8 pg (27.0-33.0); Mean Corpuscular Volume 88.7 fL (80.0-98.0); NRBC Abs Auto 0.000 X10*3/uL (0.0-0.012); NRBC Pct Auto 0.0 /100WBC (0.0-0.2); Platelet Count 264 X10*3/uL (160-400); Red Blood Count 4.86 X10*6/uL (4.20-5.50); White Blood Count 8.4 X10*3/uL (4.8-10.8)
[2025-03-07 11:29] LABS: Alanine Aminotransferase 17 U/L (0-31); Albumin Level 4.6 g/dL (3.5-5.0); Alkaline Phosphatase 67 U/L (39-117); Anion Gap 11 (12-20); Aspartate Amino Transferase 23 U/L (5-31); Blood Urea Nitrogen 19 mg/dL (9-16); Calcium 9.4 mg/dL (8.4-10.2); Carbon Dioxide 29 mmol/L (22-29); Chloride 107 mmol/L (96-108); Cholesterol 223 mg/dL (<200); Estimated Glomerular Filt Rate > 60; HDL Cholesterol 56 mg/dL (>40); Magnesium 2.0 mg/dL (1.6-2.6); Potassium 3.8 mmol/L (3.3-5.1); Sodium 143 mmol/L (135-145); Total Protein 7.0 g/dL (6.5-8.0); Triglycerides 144 mg/dL (<150)
[2025-03-07 11:38] LABS: Free T4 (Free Thyroxine) 1.02 ng/dL (0.71-1.85); Thyroid Stimulating Hormone 1.08 uIU/mL (0.32-4.0)
[2025-03-07 11:47] LABS: Folate 3.2 ng/mL (> or = 4.0); Vitamin B12 497 pg/mL (200-900)
--- OUTSIDE RECORDS SUMMARY | 2025-03-07 12:46 | XMS_ITS | Encounter Summary ---
Author Organization [facility] Address [address] [place] [address] Care Team Providers Care Photographic Platemaker Name Role Phone Lm Larsen MD Primary Care Provider [phone] Encounter Details Date Type Department Care Team (Late st Contact Info) Description 03/01/2025 Results Follow-Up [facility] [address] [phone] Sadi Solano NP [address] [place] [address] Dr Lau [address] [place] [phone] Social History Tobacco Use Types Packs/Day Years Used Date Smoking Tobacco: Former Cigarettes Q uit: 05/20/1989 Smokeless Tobacco: Former Quit: 05/20/1989 Alcohol Use Standard Drinks/Week Comments Not Currently 0 (1 standard drink = 0.6 oz pur e alcohol) Comments Unknown Sex and Gender Information Value Date Recorded Sex Assigned at Not on file Legal Sex Female 12:06 PM EST Gender Identity Not on file Sexual Orientation Not on file documented as of this encounter Plan of Treatment Upcoming Encounters Date Type Department Care Team (Late st Contact Info) Description 05/25/2025 9:10 AM EST Office Visit [facility] - [facility] [address] [place] [address] Dr [address]asco 410 [phone] Sadi Solano NP [address] [place] [address] [address] [place] [phone] documented as of this encounter Visit Diagnoses Not on filedocumented in this encounter Care Teams Photographic Platemaker Relationship Specialty Start Date End Date Chava, MD Lm [address] [place] [address] Dr [address]as[address] [facility] [place] [address] PCP - General Internal Medicine 01/03/25 documented as of this encounter
--- OUTSIDE RECORDS SUMMARY | 2025-03-07 12:47 | XMS_ITS | Encounter Summary ---
Author Organization [facility] Address [address] [place] [address] Care Team Providers Care Artist Representative Name Role Phone Lizzie Everett PA-C Primary Care Provi kinsey Mj Soni MD Unavailable Unavailable Adolfo Durant MD Unavailable [phone] Vinicius Solis MD Unavailable [phone] Encounter Details Date Type Department Care Team (Late st Contact Info) Description 06/20/[address] [phone] Lizzie Everett PA-C [address] [place] [phone] Social History Tobacco Use Types Packs/Day Years Used Date Smoking Tobacco: Former Cigarettes 1 13 Smokeless Tobacco: Never Comments:Quit 32yrs ago Alcohol Use Standard Drinks/Week Comments Yes 0 (1 standard drink = 0.6 oz pur e alcohol) occasionally [facility] Utilities Answer Date Recorded In the past 12 months has [employer], gas, oil, or water company threatened to shut off services in your home? No 06/06/2024 Social Connection and Isolation Panel Answer Date Recorded In a typical week, how many times do you talk on the phone with family, friends, or neighbors? More than three times a week 06/06/2024 Frequency of Social Gatherin gs with Friends and Family Not on file 06/06/2024 Attends [employer] Services Not on file 01/27 /2025 Active Member of Clubs or Organizations Not [...] any time in the past 12 m [facility], were you homeless or living in a fpc (including now)? No 06/06/2024 Education Answer Date Recorded What is the highest level of school you have completed or the highest degree you have received? 12th grade 06/06/2024 Comments No Sex and Gender Information Value Date Recorded Sex Assigned at Female 10/10/2023 12:09 PM EDT Legal Sex Female 9:07 AM EST Gender Identity Female 10/10/2023 12:09 PM EDT [...] documented in this encounter Plan of Treatment Not on file documented as of this encounter Visit Diagnoses Not on filedocumented in this encounter Care Teams Artist Representative Relationship Specialty Start Date End Date Lizzie Everett PA-C [address] [place] [address] PCP - General Internal Medicine 10/12/23 07/28/24 Mj Soni MD [address] [place] [address] Nephrology 10/12/23 Adolfo Durant MD [address] [place] [address] [place] [address] Referring Provider Obstetrics and Gynecology 10/12/23 Vinicius Solis MD [address] [place] [address] [place] [address] Referring Provider Cardiology-Scan 10/12/23 Elisa Moulton [facility] Nurse Practitioner Sleep Medicine 10/05/23 Ajith Olson Physician Allergy and Immunology-Scan 10/05/23 documented as of this encounter
--- OUTSIDE RECORDS SUMMARY | 2025-03-07 12:47 | XMS_ITS | Clinical Summary ---
Author Organization [facility] Address [address] [place] [phone] Phone Care Team Providers Care Foster Parent Name Role Phone Lizzie Everett Primary Care Provider [phone] Allergies Active Allergy Reactions Criticality Noted Date [...] AND CALL 911 06/11/19 22 Active Multiple Vitamins-Choudrant als (CENTRUM SILVER 50+WOMEN PO) Take 1 tablet by mouth 1 (one) time each day Active amLODIPine (NORVASC) 5 MG tablet TAKE 1 TABLET BY MOUTH EVERY DAY AT NIGHT 90 tablet 4 02/24/20 24 Active potassium citrate 10 MEQ (1080 MG) CR tablet TAKE 1 TABLET BY MOUTH IN THE MORNING, THEN 1 TAB AT NOON AND THEN 1 TAB IN THE EVENING. 270 tablet 3 06/22/19 25 Active Magnesium 400 MG tablet Take by mouth Active hydroCHLOROthi azide 25 MG tablet TAKE 1 TABLET BY MOUTH EVERY DAY 90 tablet 3 01/12/20 25 Active losartan (COZAAR) 50 MG tablet TAKE 1 TABLET BY MOUTH EVERY DAY 90 tablet 3 02/14/20 25 Active losartan (COZAAR) 50 MG tablet TAKE 1 TABLET BY MOUTH EVERY DAY 90 tablet 3 02/29/20 24 025 Discontinued Active Problems Problem Noted Date [...] Encounters Date Type Department Care Team Description 02/12/2025 Refill [facility] [address] [place] [address] Mj Soni MD 01/11/2025 Refill [facility] [address] [place] [address] Ok Solis MD from Last 3 Months Immunizations Immunization Administration Dates Next Due Influenza Split High [...] Visit [facility] [address] [phone] Mj Soni MD [address] [address] Health Maintenance Due Date Last Done Comments Breast Cancer Screening 1961 Pneumococcal Vaccine: 50+ Years (1 of 2 - PCV) 1980 Colorectal Cancer Screening: Annual FOBT 2010 Colorectal Cancer Screening: Colonoscopy 2010 Colorectal Cancer Screening: Sigmoidoscopy 2010 Influenza Vaccine Completed 02/25/2025, , 01/13/2019, Additional history exists Hepatitis B Vaccine Aged Out No longe r eligible based on patient's age to complete this topic Insurance Comprehensive Benefits Comprehensive Benefits Care Teams Foster Parent Relationship Specialty Start Date End Date Lizzie Everett PA [address] [place] [address] PCP - General Physician Domestic Laundry Worker 06/30/22
--- OUTSIDE RECORDS SUMMARY | 2025-03-07 12:47 | XMS_ITS | Clinical Summary ---
Author Organization [facility] Address [address] [place] [address] Care Team Providers Care Database Specialist Name Role Phone Mj Soni MD Unavailable Unavailable Adolfo Durant MD Unavailable [phone] Vinicius Solis MD Unavailable [phone] Allergies Active Allergy Reactions Criticality Noted Date [...] Family Unable to Define,Anaphylaxis High 08/25/2014 Anaphylaxis Shellfish Protein-Containing Drug Products Unknown/Patient and Family Unable to Define Medium 10/12/2023 Medications albuterol (PROVENTIL HFA; VENTOLIN HFA) 108 (90 Base) MCG/ACT inhaler INHALE 1 TO 2 PUFF(S) BY MOUTH EVERY 4-6 HOURS NEEDED FOR 30 DAYS Active amLODIPine (NORVASC) 5 MG tablet Take 1 tablet (5 mg total) by mouth daily. 4 Active EPINEPHrine 0.3 mg/0.3 mL IJ auto-injection USE DIRECTED FOR ANAPHYLAXIS AND CALL 911 4 Active hydroCHLOROthia zide (HYDRODIURIL) 25 MG tablet Take 1 tablet (25 mg total) by mouth daily. 4 Active losartan (COZAAR) 50 MG tablet Take 1 tablet (50 mg total) by mouth daily. 4 Active OMEprazole (PriLOSEC) 20 MG capsule Take 1 capsule (20 mg total) by mouth daily. 4 Active valACYclovir (VALTREX) 1000 MG tablet Take 1 tablet (1,000 mg total) by mouth as needed. 4 Active potassium citrate (UROCIT-K) 10 MEQ (1080 MG) ER tablet Take 1 tablet (10 mEq total) by mouth 3 (three) times a day. Swallow tablet whole with full glass of water Active fluticasone (FloNASE) 50 mcg/spray nasal spray 1 spray into each nostril daily. Active cholecalciferol (CHOLECALCIFERO L) 25 MCG (1000 UT) tablet Take 2 [...] Herpes simplex infection of genitourinary system 10/12/2023 Immunizations Immunization Administration Dates Next Due Influenza High-Dose Trivalen [...] = 0.6 oz pur e alcohol) occasionally [employer] Answer Date Recorded In the past 12 months has e [employer], gas, oil, or water [employer] threatened to shut off services in your home? No 06/06/2024 Social Connection and Isolation Panel Answer Date Recorded In a typical week, how many times do you talk on the phone with family, friends, or neighbors? More than three times a week 06/06/2024 Frequency of Social Gatherin gs with Friends and Family Not on file 06/06/2024 Attends [employer] Not on file 06/06 Active Member [...] any time in the past 12 m [facility], were you homeless or living in a [...] 90 06/07/2024 4:16 PM EST Temperature 36.2 C (97.2 F) 06/07/2024 4:16 PM EST Respiratory Rate 17 06/07/2024 4:16 PM EST Oxygen Saturation 96% 06/07/2024 4:16 PM EST Inhaled Oxygen Concentration - - Weight 89.8 kg (198 lb) 06/07/2024 4:16 PM EST Height 167.6 cm (5' 6 ) 06/07/2024 4:16 PM EST Body Mass Index 31.96 06/07/2024 4:16 PM EST Plan of Treatment Health Maintenance Due Date Last Done Comments Colonoscopy 2006 Influenza Vaccine 12/09/2024 05/28/2020, , 03/16/2018, Additional history exists Mammogram [...] age to complete this topic RSV Vaccine 50 years and older and Patients Discontinued Insurance [employer] Care Teams Database Specialist Relationship Specialty Start Date End Date Mj Soni MD Nephrology 10/12/23 Adolfo Durant MD [address] [place] [address] Dr [address] [place] [address] Referring Provider Obstetrics and Gynecology 10/12/23 Vinicius Solis MD [address] [place] [address] Dr Lau [address] [place] [address] Referring Provider Cardiology-Scan 10/12/23 Elisa Moulton [facility] Nurse Practitioner Sleep Medicine 10/05/23 Ajith Olson Physician Allergy and Immunology-Scan 10/05/23
--- OUTSIDE RECORDS SUMMARY | 2025-03-07 12:47 | XMS_ITS | Patient Health Record ---
Author Organization [facility] Address [address] [place] [address] Care Team Providers Care Mold Maker Name Role Phone Po Lm TAMEZ Primary Care Provider Fernando Xiong Jr Unavailable Allergies Allergen (clinical drug ingredient) Drug/Non Drug Allergy documented on EMR Reaction Allergy Type Onset Date Status sulfamethoxazole / trimethoprim Bactrim Unknown Drug Allergy Active moxifloxacin Avelox Unknown Drug Allergy Acti ve celiac disease (uncoded) Unknown Allergy Active cefaclor Ceclor (uncoded) Unknown Allergy Act leah Gentamicin in Saline Unknown Drug Allergy Active erythromycin Erythromycin Unknown Drug Allergy A ctive codeine Codeine Sulfate Unknown Drug Allergy A ctive Reason For Referral No Information Medications Medication SIG (Take, Route, Frequency, Duration) Notes Start Date End Date Status Losartan Potassium 25 MG 1 tablet Orally Once a day Active amLODIPine Besylate 5 MG [...] directed Ora lly once a day Active Omeprazole 20 MG 1 tablet Orally Once a day; Duration: 90 days 11/25/2017 Active Omeprazole 20 MG TAKE 1 CAPSULE BY MOUTH EVERY DAY; Duration: 90 Active MiraLax (colon prep) 8.3 oun ce ((238) grams mixed with Gatorade or Crystal Light orally begin at 5:00 p.m. the day before the procedure; Duration: 1 day 07/29/2019 Active Probiotic 250 MG 1 capsule Orally onc e a day Active Immunizations Vaccine Route Administration Date Status Comme nts Influenza Unknown 03/23/2018 Administered Influenza Unknown 01/09/2019 Administered Influenza Unknown 02/27/2021 Administered Influenza Unknown 02/25/2022 Administered Influenza Unknown 01/27/2023 Administered Influenza Unknown 01/26/2024 Administered Social History Alcohol Screen Question Answer Notes Did you have a drink containing alcohol in the p ast year? No Points 0 Interpretation Negative Section Notes: Tobacco use negative. Alcohol use one to 2 drinks 4-5 times per week. Tobacco use negative. Alcohol use one to 2 drinks 4-5 times per week. Tobacco use negative. Alcohol use one to 2 drinks 4-5 times per week. Tobacco use negative. Alcohol use one to 2 drinks 4-5 times per week. Tobacco use negative. Alcohol use one to 2 drinks 4-5 times per week. Tobacco use negative. Alcohol use one to 2 drinks 4-5 times per week. Tobacco use negative. Alcohol use one to 2 drinks 4-5 times per week. Tobacco use negative. Alcohol use one to 2 drinks 4-5 times per week. Tobacco use negative. Alcohol use one to 2 drinks 4-5 times per week. Tobacco use negative. Alcohol use one to 2 drinks 4-5 times per week. Tobacco use negative. Alcohol use one to 2 drinks 4-5 times per week. Tobacco use negative. Alcohol use one to 2 drinks 4-5 times per week. Problems Problem Type SNOMED Code ICD Code Onset Dates Problem Status W/U Status Risk Notes Problem Epigastric pain (61193140) Epigastric pain (R10.13) Active confirmed Problem Celiac disease (738551943) Celiac disease (K90.0) Active confirmed Problem Diverticulitis (53858018) Diverticulitis (K57.92) Active confirmed Problem Gastroesophageal reflux disease without esophagitis (827838131) Gastroesophageal reflux disease without esophagitis (K21.9) Active confirmed Problem Fatty liver (256424703) Fatty liver (K76.0) Active confirmed Problem Screening for colon cancer (317983192) Screening for colon cancer (Z12.11) Active confirmed Problem Hepatitis C antibody test positive (561734515) Positive hepatitis C antibody test (R76.8) Active confirmed Problem Irritable bowel syndrome (27107140) Irritable bowel syndrome with both constipation and diarrhea (K58.2) Active confirmed Problem Right upper quadrant pain (394272748) RUQ pain (R10.11) Active confirmed Vital Signs Temperature 99.1 degrees Fahrenheit 07/25/2024 Blood pressure diastolic 01 mm Hg 07/25/2024 Height 66 in 07/25/2024 Blood pressure systolic 001 mm Hg 07/25/2024 Weight 195.6 lbs 07/25/2024 BMI 31.57 kg/m2 07/25/2024 Encounters Encounter Location Date Provider Diagnosis [facility] [address] [place] [phone] 07/25/2024 Fernando Poole Jr Gastroesophageal reflux disease without esophagitis K21.9 ; Irritable bowel syndrome with both constipation and diarrhea K58.2 and Celiac disease K90.0 [facility] [address] [place] [phone] 03/07/2024 Fernando Poole Jr [facility] [address] [place] [phone] 03/14/2024 Fernando Poole Jr Epigastric pain R10.13 [facility] [address] [place] [phone] 09/28/2024 Fernando Poole Jr Assessments Encounter Date Diagnosis (ICD Code) Assessment [...] this today. Today's visit was 35 minutes. 03/14/2024 Epigastric pain (ICD-10 - R10.13) 07/25/2024 Irritable bowel syndrome with both constipation [...] visit was 35 minutes. Plan Of Treatment Pending Test Test Name Order Date LIVER PROFILE 01/18/2024 Future Test Test Name Order Date COLONOSCOPY 08/14/2011 COLONOSCOPY 12/21/2014 UPPER GI ENDOSCOPY 11/25/2017 COLONOSCOPY 07/29/2019 UPPER GI ENDOSCOPY 01/18/2024 Next Appt Details Provider Name:Fernando crawford , 06/05/2025 09:20:00 AM, [address] [place] [address], [address], [place], [address], Insurance Providers Payer Name Payer Address Payer Phone Subscriber Number Group Number Insured Name Patient Relationship to Insured Coverage Start Date Coverage End Date [facility] [address] [place] [address] [id number] JUAN J CROSS Self - patient is the insured Medical (General) History Medical History History ICD Code nephrolithiasis esophageal reflux upper endoscopy 8, and no Yun's or H. 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
--- OUTSIDE RECORDS SUMMARY | 2025-03-07 12:47 | XMS_ITS | Encounter Summary ---
Author Organization [facility] Address [address] [place] [id number] Care Team Providers Care Javascript Developer Name Role Phone Lizzie Everett PA-C Primary Care Provi kinsey Mj Soni MD Unavailable Unavailable Adolfo Durant MD Unavailable [phone] Vinicius Solis MD Unavailable [phone] Encounter Details Date Type Department Care Team (Late st Contact Info) Description 10/19/2023 Scanned Document [facility] GASTRO SCAN Gastroenterology, Scan Social History Tobacco Use Types Packs/Day Years Used Date Smoking Tobacco: Former Cigarettes 1 13 Smokeless Tobacco: Never Comments:Quit 32yrs ago Alcohol Use Standard Drinks/Week Comments Yes 0 (1 standard drink = 0.6 oz pur e alcohol) occasionally PHQ-2 Answer Date Recorded PHQ-2 Total Score 0 10/12/2023 Comments No Sex and Gender Information Value Date Recorded Sex Assigned at Female 10/10/2023 12:09 PM EDT Legal Sex Female 9:07 AM EST Gender Identity Female 10/10/2023 12:09 PM EDT Sexual Orientation Heterosexual (straight) 10/09 12:09 PM EDT documented as of this encounter Plan of Treatment Not on file documented as of this encounter Visit Diagnoses Not on filedocumented in this encounter Care Teams Javascript Developer Relationship Specialty Start Date End Date Lizzie Everett PA-C [address] [place] [address] PCP - General Internal Medicine 10/12/23 07/28/24 Mj Soni MD [address] [facility] [place] [address] Nephrology 10/12/23 Adolfo Durant MD [address] [place] [address] Dr Lau [address] [place] [id number] Referring Provider Obstetrics and Gynecology 10/12/23 Vinicius Solis MD [address] [place] [address] Dr Lau [address] [place] [id number] Referring Provider Cardiology-Scan 10/12/23 Elisa Moulton [facility] Nurse Practitioner Sleep Medicine 10/05/23 Ajith Olson Physician Allergy and Immunology-Scan 10/05/23 documented as of this encounter
--- OUTSIDE RECORDS SUMMARY | 2025-03-07 12:47 | XMS_ITS | Clinical Summary ---
Author Organization [address] [place] [address] [place] [phone] Phone Care Team Providers Care Aviation Maintenance Instructor Name Role Phone Lm Larsen MD Primary Care Provider [phone] Allergies Active Allergy Reactions Criticality Noted Date Comments Adhesive Tape-Silicones 06/24/2021 Cefaclor Hives,Other,Unkn own Medium 08/25/2014 hives Codeine Hives,Unknown Medium 08/25/2014 hives Erythromycin Hives,Other,Unkn own Medium 08/25/2014 hives Fluorouracil-Adhesiv e Bandage 02/21/2025 Gentamicin Hives,Other,Unkn own Medium 08/25/2014 hives Moxifloxacin Anaphylaxis,Unkn own High 08/25/2014 Reaction not mentioned Other reaction(s): anaphylaxis, unknown Reaction not mentioned Other Anaphylaxis,Othe r,Rash,Unknown High 08/25/2014 hives anaphylaxis Anaphylaxis hives Other reaction(s): METHYLISOTHIAZOLONE Phenylephrine-Guaife nesin Hives 08/25/2014 hives Pseudoephedrine-Guai fenesin Hives 06/24/2021 Shellfish Containing Products Unknown,Anaphyla xis High 08/25/2014 Anaphylaxis Sulfamethoxazole-Tri methoprim Hives,Other,Unkn own Medium 08/25/2014 hives Medications potassium citrate (UROCIT-K) 10 mEq (1,080 mg) CR tablet Take 1 tablet (10 mEq total) by mouth 3 (three) times a day with meals. Do not crush, chew, or split. Active omeprazole (PriLOSEC) [address] capsule Take 1 capsule (20 mg total) by mouth 1 (one) time each day. Do not crush or chew. Active amLODIPine (NORVASC) 5 mg tablet Take 1 tablet (5 mg total) by mouth 1 (one) time each day. Active losartan (COZAAR) 50 mg tablet Take 1 tablet (50 mg total) by mouth 1 (one) time each day. Active hydroCHLOROthi azide (HYDRODIURIL) 25 mg tablet Take 1 tablet (25 mg total) by mouth 1 (one) time each day. Active cetirizine (ZyrTEC) 10 mg tablet Take 1 tablet (10 mg total) by mouth 1 (one) time each day. Active cholecalcifero l (VITAMIN D-3) 50 mcg (2,000 unit) tablet Take 1 tablet (2,000 Units total) by mouth 1 (one) time each day. Active fluticasone propionate (FLONASE) 50 mcg/actuation nasal spray Administer 1 spray into each nostril 1 (one) time each day. Shake gently. Before first use, prime pump. After use, clean tip and replace cap. Active metoprolol succinate (TOPROL-XL) 25 mg 24 hr tablet Take 2 tablets (50 mg total) by mouth 1 (one) time each day. Do not crush or chew. 180 tablet 2 5 Active metoprolol succinate (TOPROL-XL) 25 mg 24 hr tablet Take 1 tablet (25 mg total) by mouth 1 (one) time each day. Do not crush or chew. 30 each 5 5 02/28/20 25 Discontinu ed(Reorder ) fexofenadine (Zehra Allergy) 60 mg tablet Take by mouth. 3 02/22/20 25 Discontinu ed(Entered in Error) Active Problems Problem Noted Date Diagnosed Date Class 1 obesity 02/21/2025 Herpes simplex infection of genitourinary system 10/12/2023 History of colon polyps 10/12/2023 IFG (impaired fasting glucose) 10/12/2023 Mild intermittent asthma without complication KHADAR (obstructive sleep apnea) 10/12/2023 Other hyperlipidemia 10/12/2023 Seasonal allergies 10/12/2023 Multiple premature ventricular complexes 023 Assessment & Plan (02/22/2025 12:53 PM EDT): First diagnosed in 2022. Patient reported that her symptoms have remained the same since her first diagnosis. However, with the increase in personal stress makes her feel the palpitations more. Continue with taking metoprolol. Last Holter monitor was in December 2024 which displayed Frequent PVCs and ventricular trigeminy. Rare couplets and ventricular bigeminy. PVC [place] was 3.5%. Placing a new Holter monitor today in office to assess if there is any new changes. Orders: ECG 12 lead Palpitations 02/06/2023 Overview (02/21/2025): On holter Assessment & Plan (02/22/2025 12:53 PM EDT): Patient has experienced increase in heart flutters and palpations. Symptoms can be contributed to increased anxiety due to her 's severe illness. EKG today showed PVCs. Ordered a 24 hour Holter monitor as well as a BMP, Magnesium, and TSH lab orders to determine any underlying etiologies. Will review lab work with patient once results are back. Orders: ECG 12 lead Cardiac holter monitor (<= 48 hours); Future Basic metabolic panel; Future Magnesium; Future Thyroid stimulating hormone with reflex to free t4 and free t3; Future Benign essential hypertension 2021 Edema of lower extremity 2021 Colon polyp 08/31/2015 Overview (02/21/2025): Following with Dr. Poole, last colonoscopy 03/2015, due 2020 Gastroesophageal reflux disease without esophagi tis 08/31/2015 Overview (02/21/2025): Follows with Dr. Poole, had EGD 1999?, another EGD / Dr. Poole wanted pt to take PPI Allergic rhinitis 08/25/2014 Overview (02/21/2025): Dr. Fenton Nephrolithiasis 08/25/2014 Overview (02/21/2025): Calcium HTN (hypertension) 08/25/2014 Assessment & Plan (02/22/2025 12:53 PM EDT): Has been well controlled, today in office was 122/82. Continue taking amlodipine, hydrochlorothiazide, losartan, and metoprolol. Orders: ECG 12 lead Calculus of kidney 07/05/1991 Overview (02/21/2025): Sees Dr. Soni and Dr. Bowling daily potassium citrate use calcium oxalate stones Encounters Date Type Department Care Team Description 03/01/2025 8:00 AM EDT Ancillary Procedure [facility] - [address] [place] [phone] Palpitations; Multiple premature ventricular complexes 03/01/2025 Results Follow-Up [facility] [address] [facility] [address] [place] [address] Sadi Solano NP 02/22/2025 Results Follow-Up [facility] [address] [facility] [address] [place] [address] Sadi Solano NP 02/21/2025 10:40 AM EDT Office Visit [facility] [address] [facility] [address] [place] [address] Sadi Solano NP Palpitations (Primary Dx); Secondary hypertension; Multiple premature ventricular complexes 02/21/2025 9:00 AM EDT Ancillary Procedure [facility] - [address] [place] [address] Palpitations 02/21/2025 Telephone [facility] [address] [place] [address] Vinicius Solis MD 01/25/2025 Telephone [facility] [place] [address] [place] [phone] Sadi Solano NP 01/03/2025 2:30 PM EDT Ancillary Procedure [facility] - [address] [place] [phone] Palpitations 01/03/2025 Telephone [facility] [address] [place] [address] Vinicius Solis MD from Last 3 Months Surgical History Surgery Date Site/Laterality Comments BREAST LUMPECTOMY 05/11/2012 PROCEDURE: ---- BREAST LUMP BIOPSY ---- LITHOTRIPSY 05/11/2006 PROCEDURE: HISTORICAL LITHOTRIPSY OTHER SURGICAL HISTORY 05/11/2011 PROCEDURE: IA HYSTEROSCOPY DIAGNOSTIC SEPARATE PROCEDURE OTHER SURGICAL HISTORY PROCEDURE: SCREENING COLPOSCOPY OTHER SURGICAL HISTORY PROCEDURE: LAPAROSCOPIC CHOLECYSTECT OTHER SURGICAL HISTORY PROCEDURE: HISTORY OTHER; COMMENT: cholecystectomy OTHER SURGICAL HISTORY PROCEDURE: HISTORY OTHER; COMMENT: dilation and curretage OTHER SURGICAL HISTORY Right PROCEDURE: HISTORY OTHER; COMMENT: knee surgery OTHER SURGICAL HISTORY PROCEDURE: HISTORY OTHER; COMMENT: vein strippings Medical History Medical History Date Comments Nephrolithiasis 08/25/2014 DX:Nephrolithias is HTN (hypertension) 08/25/2014 DX:HTN (hyper tension) Allergic rhinitis 08/25/2014 DX:Allergic rh initis Colon polyp 08/31/2015 DX:Colon polyp; COMMENT: Following with Dr. Poole, last colonoscopy 03/2015 Gastroesophageal reflux dise ase without esophagitis 08/31/2015 DX:Gastroesophageal reflux d isease without esophagitis Kidney stones DX:Kidney stones Fibroids DX:Fibroids Hepatitis C DX:Hepatitis C Mild intermittent asthma DX:Mild intermittent asthma Seasonal allergic rhinitis DX:Se asonal allergic rhinitis Family History Medical History Relation Name Comments Breast cancer Aunt 2 motheral aun t Abdominal Aortic Anuerysm (AAA) Father nephrolithiasis Breast cancer Maternal Grandmother Hypertension Maternal Grandmother Hypertension Mother ?started meds o n her 40' Other: polymyalgia rheumatica Mother osteoporosis htn thyroid Rheum arthritis Mother Relation Name Status Comments Aunt Father Maternal Grandmother Mother Alive Social History Tobacco Use Types [...] on file Sexual Orientation Not on file Obstetrics History Last Filed Vital Signs Vital Sign Reading Time Taken Comments Blood Pressure 120/70 03/01/2025 8:27 AM EDT Pulse 74 02/21/2025 10:39 AM EDT Temperature - - Respiratory Rate - - Oxygen Saturation 97% 02/21/2025 10:39 AM EDT Inhaled Oxygen Concentration - - Weight 91.2 kg (201 lb) 03/01/2025 8:27 AM EDT Height 167.6 cm (5' 6 ) 03/01/2025 8:27 AM EDT Body Mass Index 32.44 03/01/2025 8:27 AM EDT Plan of Treatment Upcoming Encounters Date Type Department Care Team (Late st Contact Info) Description 05/25/2025 9:10 AM EST Office Visit [facility] [address] [place] [address] CycSadi borges NP [address] [place] [address] Dr [address] [place] [phone] Health Maintenance Due Date Last Done Comments Breast Cancer Screening 1961 Colorectal Cancer Screening: Colonoscopy 1961 Cervical Cancer Screening: Pap Smear 1982 RSV Immunization Adult Patients (1 - Risk 50-74 years 1-dose series) 2011 Cholesterol Screening (Lipid Panel) 04/08/2022 HIV Screening 04/08/2022 Hepatitis C Screening 04/08/2022 Social Influencers of Health Screening 04/08/2022 Depression Screening 05/11/2024 COVID-19 Vaccine ( season) 2025 03/02/2023, 04/26/2022, 12/01/2021, Additional history exists Influenza Vaccine (#1) 2025 , 02/17/2023, 02/24/2022, Additional history exists Hypertension/CHF/CAD Annual BMP Blood Test 02/21/2026 02/21/2025, 01/16/2025, 06/22/2024, Additional history exists DTaP,Tdap,and Td Vaccines (3 - Td or Tdap) 09/30/2032 09/30/2022, 07/18/2013 Pneumococcal Vaccine: 50+ Years Completed 04/08/2022 Zoster Vaccines Completed 04/26/2022, 1207/2021, 10/31/2021 HIB Vaccines Aged Out No longer eligi ble based on patient's age to complete this topic HPV Vaccines Aged Out No longer eligi ble based on patient's age to complete this topic Hepatitis A Vaccines Aged Out No long er eligible based on patient's age to complete this topic Hepatitis B Vaccines Aged Out No long er eligible based on patient's age to complete this topic IPV Vaccines Aged Out No longer eligi ble based on patient's age to complete this topic MMR Vaccines Aged Out No longer eligi ble based on patient's age to complete this topic Meningococcal ACWY Vaccine Aged Out N o longer eligible based on patient's age to complete this topic Meningococcal B Vaccine Aged Out No l onger eligible based on patient's age to complete this topic RSV Immunization Patients Under 20 months Aged Out No longer eligible based on patient's age to complete this topic Varicella Vaccines Aged Out No longer eligible based on patient's age to complete this topic Procedures Procedure Name Priority Date/Time Associated Diagnosis Comments TRANSTHORACIC ECHOCARDIOGRAM (TTE) COMPLETE Routine 03/01/2025 8:27 AM EDT Palpitations Multiple premature ventricular complexes ECG 12-LEAD Routine 02/22/2025 4:25 PM EDT Secondary hypertension Multiple premature ventricular complexes Palpitations THYROID STIMULATING HORMONE WITH REFLEX TO FREE T4 AND FREE T3 Routine 02/21/2025 12:04 PM EDT Palpitations MAGNESIUM Routine 02/21/2025 12:04 PM EDT Palpitations BASIC METABOLIC PANEL Routine 02/21/2025 12:04 PM EDT Palpitations CARDIAC HOLTER MONITOR (REPORT GENERATED IN HOUSE) Routine 02/21/2025 11:33 AM EDT Palpitations CBC WITH AUTO DIFFERENTIAL Routine 01/16/2025 8:34 AM EDT Palpitations MAGNESIUM Routine 01/16/2025 8:34 AM EDT Palpitations THYROID STIMULATING HORMONE WITH REFLEX FREE T4 Routine 01/16/2025 8:34 AM EDT Palpitations CBC AND DIFFERENTIAL Routine 01/16/2025 8:34 AM EDT Palpitations BASIC METABOLIC PANEL Routine 01/16/2025 8:34 AM EDT Palpitations N-TERMINAL PROBNP Routine 01/16/2025 8:3 2 AM EDT Palpitations CARDIAC HOLTER MONITOR (REPORT GENERATED IN HOUSE) Routine 01/03/2025 2:42 PM EDT Palpitations from Last 3 Months Results * TRANSTHORACIC ECHOCARDIOGRAM (TTE) COMPLETE (03/01/2025 8:27 AM EDT) Left Atrium Minor [place] 6.0 cm CV PACS Left Atrium Major [place] 5.2 cm CV PACS LA Area Sys (A2C) 23 cm2 CV PACS LA Area Sys (A4C) 21 cm2 CV PACS LA Volume (BP) 74 mL CV PACS RA Area 13.3 cm2 CV PACS RA 2D Volume 30 mL CV PACS Aortic Sinus Valsalva 3.1 cm CV PACS Ascending Aorta 3.5 cm CV PACS IVC Proximal 1.9 cm CV PACS IVC Proximal 0.8 cm CV PACS IVSD 0.8 0.6 - 0.9 cm CV PACS LVIDD 4.7 3.8 - 5.2 cm CV PACS LVIDS 3.5 2.2 - 3.5 cm CV PACS LVOT Diameter 2.2 cm CV PACS LVOT Mean Lars 0.7 m/s CV PACS LVOT Mean Grad 3 mmHg CV PACS LVOT Peak VTI 23.2 cm CV PACS LVOT Peak Lars 1.1 m/s CV PACS LVOT Peak Gradient 5 mmHg CV PACS LVPWD 0.8 0.6 - 0.9 cm CV PACS MV E' Tissue Velocity Lateral 8 cm/s CV PACS MV E' Tissue Velocity Septal 7 cm/s CV PACS LVOT Area 3.8 cm2 CV PACS LVOT Stroke Volume 88 mL CV PACS E Wave Deceleration Time 180 119 - 242 ms CV PACS MV Peak A Lars 0.91 m/s CV PACS MV Peak E Lars 0.96 m/s CV PACS PV Acceleration Time 165 ms CV PACS PV Acceleration Time 165 ms CV PACS RV Diastolic Basal Dimension 2.5 2.5 - 4.1 cm CV PACS RV S' 11 cm/s CV PACS TAPSE 32 mm CV PACS E/E' Ratio Septal 14 CV PACS E/E' Ratio Averaged 13 CV PACS Relative Wall Thickness ratio 0.34 CV PACS FS 26 % CV PACS LV Mass 2D 122 g CV PACS LVOT flow 266 mL/s CV PACS E/A Ratio 1.1 CV PACS E/E' Ratio Lateral 12 CV PACS BSA 2.06 m2 CV PACS LA Volume Index (BP) 37 mL/m2 CV PACS LVIDD Index 2.35 cm/m2 CV PACS LVIDS Index 1.75 cm/m2 CV PACS LV Mass Index 2D 61 44 - 88 g/m2 CV PACS LVOT Stroke Index 44 mL/m2 CV PACS RA 2D Volume Index 15 15 - 27 mL/m2 CV PACS Ascending Aorta Index 1.75 cm/m2 CV PACS Anatomical Region Laterality Modality Ultrasound Narrative 03/01/2025 9:50 AM EDT Left ventricle cavity size is normal. Wall thickness is normal. Systolic function is normal with an ejection fraction of 60-65%. There are no regional LV wall motion abnormalities. No hemodynamically significant valvular dysfunction Compared to the prior study from 2022, there has been no significant change Left Ventricle Left ventricle cavity size is normal. Wall thickness is normal. Systolic function is normal with an ejection fraction of 60-65%. There are no regional LV wall motion abnormalities. There is no diastolic dysfunction. Right Ventricle Right ventricle cavity appears normal. Systolic function is normal. Left Atrium Left atrium cavity is mildly dilated. Right Atrium Right atrium cavity is normal. IVC/SVC Inferior vena cava structure is normal. RA pressures is estimated to be 3 mmHg (IVC diameter <21 mm and decreases >50% during inspiration). Mitral Valve The leaflets are mildly thickened. There is mild annular calcification. There is no significant mitral valve regurgitation. There is no significant stenosis noted. Tricuspid Valve Tricuspid valve structure is normal. Tricuspid regurgitation is inadequate for estimation of right ventricular systolic pressure. There is no significant tricuspid valve stenosis. Aortic Valve The aortic valve is trileaflet. The leaflets are not thickened and exhibit normal excursion. There is no regurgitation or stenosis. Pulmonic Valve The pulmonic valve was not well visualized. No significant pulmonic valve regurgitation. No significant pulmonary valve stenosis noted. Ascending Aorta The aorta appears normal in size. Pericardium Pericardium appears normal. There is no pericardial effusion. Study Details Overall the study quality was adequate. Sadi Solano NP CV ECHO PROCEDURES Final Re sult * ECG 12 lead (02/22/2025 4:25 PM EDT) 02/21/2025 10:5 4 AM EDT 02/22/2025 10:31 AM EDT Sadi Solano NP ECG ORDERABLES Final Resul t GEMUSE * Thyroid stimulating hormone with reflex to free t4 and free t3 (02/21/2025 12:04 PM EDT) Thyroid Stimulating Hormone (TSH) 1.040 0.450 - 4.500 uIU/mL [facility] 1 Blood Venous blood specimen / Unknown 02/21/2025 12:04 PM EDT 02/21/2025 Narrative [facility] 1 - 02/22/2025 4:06 AM EDT Performed at: 01 - [facility] [id number] Pediatric Dental Hygienist: Mala Kaye MD, Phone: [phone] Sadi Solano NP LAB BLOOD ORDERABLES Final Result Performing Organization Address [facility] de Phone Number [id number] 1 * Magnesium (02/21/2025 12:04 PM EDT) Only the most recent of2 resultswithin the time period is included. Magnesium 2.0 1.6 - 2.3 mg/dL [facility] 1 Blood Venous blood specimen / Unknown 02/21/2025 12:04 PM EDT 02/21/2025 Narrative [facility] 1 - 02/22/2025 8:08 AM EDT Performed at: - [facility] [id number] Pediatric Dental Hygienist: Mala Kaye MD, Phone: [phone] Sadi Solano NP LAB BLOOD ORDERABLES Final Result Performing Organization Address [facility] de Phone Number [id number] 1 * Basic metabolic panel (02/21/2025 12:04 PM EDT) Only the most recent of2 resultswithin the time period is included. Glucose 98 70 - 99 mg/dL [facility] 1 Blood Urea Nitrogen (BUN) 17 8 - 27 mg/dL [facility] 1 Creatinine 0.72 0.57 - 1.00 mg/dL [facility] 1 eGFR 94 >59 mL/min/1.7 3 [facility] 1 BUN/Creatinine Ratio 24 12 - 28 [facility] 1 Sodium 141 134 - 144 mmol/L [facility] 1 Potassium 4.3 3.5 - 5.2 mmol/L [facility] 1 Chloride 101 96 - 106 mmol/L [facility] 1 Carbon Dioxide 25 20 - 29 mmol/L [facility] 1 Calcium 9.7 8.7 - 10.3 mg/dL [facility] 1 Blood Venous blood specimen / Unknown 02/21/2025 12:04 PM EDT 02/21/2025 Narrative [facility] 1 - 02/22/2025 4:06 AM EDT Performed at: - [facility] [id number] Pediatric Dental Hygienist: Mala Kaye MD, Phone: [phone] Sadi Solano NP LAB BLOOD ORDERABLES Final Result [facility] 1 * CARDIAC HOLTER MONITOR (REPORT GENERATED IN HOUSE) (02/21/2025 11:33 AM EDT) Anatomical Region Laterality Modality Cardiac Diagnost ic Narrative 02/23/2025 2:14 PM EDT [facility]PARTMENT [address] [place] [address] TEL: FAX: Type of test: 24 hour Holter Monitor Date of test: 02/21/25 Ordering provider: Vinicius Solano NP Reason for Test: Palpitations PVCA Host Hostess Findings: 1: Normal Sinus Rhythm. 2: Rare PACs. Frequent PVCs and ventricular bi/trigeminy with rare couplets. 3: No pauses noted. Longest R-R 1.4 sec. 4: Diary returned with multiple episodes of palpitations noted. EKG at most of those times showed Normal Sinus Rhythm with isolated PVCs or ventricular trigeminy. Impression: Normal sinus rhythm with frequent premature ventricular complexes and a PVC burden of 5.1%. No sustained atrial or ventricular arrhythmias and no pauses. Sadi Solano NP CV CARDIAC SERVICES PROCEDU RES Final Result * Thyroid stimulating hormone with reflex free T4 (01/16/2025 8:34 AM EDT) Thyroid Stimulating Hormone (TSH) 1.580 0.450 - 4.500 uIU/mL [facility] 1 Blood Venous blood specimen / Unknown 01/16/2025 8:34 AM EDT 01/16/2025 Narrative [facility] 1 - 01/16/2025 11:06 PM EDT Performed at: - [facility] [id number] Pediatric Dental Hygienist: Mala Kaye MD, Phone: [phone] Sadi Solano NP LAB BLOOD ORDERABLES Final Result [facility] 1 * CBC auto differential (01/16/2025 8:34 AM EDT) WBC 6.2 3.4 - 10.8 x10E3/uL [facility] 1 RBC 4.87 3.77 - 5.28 x10E6/uL [facility] 1 Hemoglobin 15.1 11.1 - 15.9 g/dL [facility] 1 Hematocrit 46.2 34.0 - 46.6 % [facility] 1 MCV 95 79 - 97 fL [facility] 1 MCH 31.0 26.6 - 33.0 pg [facility] 1 MCHC 32.7 31.5 - 35.7 g/dL [facility] 1 RDW 13.3 11.7 - 15.4 % [facility] 1 Platelets 264 150 - 450 x10E3/uL [facility] 1 Neutrophils 50 Not Estab. % [facility] 1 Lymphocytes 37 Not Estab. % [facility] 1 Monocytes 10 Not Estab. % [facility] 1 Eosinophils 2 Not Estab. % [facility] 1 Basophils 1 Not Estab. % [facility] 1 Neutrophils Absolute 3.1 1.4 - 7.0 x10E3/uL [facility] 1 Lymphocytes Absolute 2.3 0.7 - 3.1 x10E3/uL [facility] 1 Monocytes Absolute 0.6 0.1 - 0.9 x10E3/uL [facility] 1 Eosinophils Absolute 0.2 0.0 - 0.4 x10E3/uL [facility] 1 Basophils Absolute 0.0 0.0 - 0.2 x10E3/uL [facility] 1 Immature Granulocytes Relative 0 Not Estab. % [facility] 1 Immature Grans (Abs) 0.0 0.0 - 0.1 x10E3/uL [facility] 1 Blood Venous blood specimen / Unknown 01/16/2025 8:34 AM EDT 01/16/2025 Narrative [facility] 1 - 01/16/2025 11:06 PM EDT Performed at: 01 - [facility] [address] [id number] Pediatric Dental Hygienist: Mala Kaye MD, Phone: [phone] Sadi Solano PRESCHOOL HEAD TEACHER LAB BLOOD ORDERABLES Final Result Performing Organization Address [facility]/ZIP Co de Phone Number [id number] 1 * N-Terminal Probnp (01/16/2025 8:32 AM EDT) [facility] NT-proBNP 67 0 - 287 pg/mL [facility] 1 Comment: The following cut-points have been suggested for the use of proBNP for the diagnostic evaluation of heart failure (HF) in patients with acute dyspnea: Modality Age Optimal Cut (years) Point Diagnosis (rule in HF) <50 450 pg/mL 50 - 75 900 pg/mL >75 1800 pg/mL Exclusion (rule out HF) Age independent 300 pg/mL Blood Venous blood specimen / Unknown 01/16/2025 8:32 AM EDT 01/16/2025 Narrative [facility] 1 - 01/16/2025 11:06 PM EDT Performed at: 01 - [facility] [id number] Pediatric Dental Hygienist: Mala Kaye MD, Phone: [phone] us Sadi Solano NP LAB BLOOD ORDERABLES Final Result Performing Organization Address [facility] Co de Phone Number [id number] 1 * CARDIAC HOLTER MONITOR (REPORT GENERATED IN HOUSE) (01/03/2025 2:42 PM EDT) Anatomical Region Laterality Modality Cardiac Diagnost ic Narrative 01/13/2025 9:56 AM EDT [facility] [address] [place] [address], [place] [address] TEL: FAX: Type of Test: 24 Hour Holter Monitor Date of Test: 01/03/2025 Ordering Provider: Sadi Solano NP Reason for Test: Palpitations Impression: 1: Normal Sinus Rhythm. 2: Rare PACs. 3: Frequent PVCs and ventricular trigeminy. Rare couplets and ventricular bigeminy. PVC [place] was 3.5%. 4: No significant pause noted, longest R-R was 1.4 seconds at 7:33 AM. 5: Diary returned with symptoms of palpitations noted. EKG at those times showed Normal Sinus Rhythm and frequent isolated PVCs and ventricular trigeminy. Heart rates were in the range of 86-96 bpm. Sadi Solano PRESCHOOL HEAD TEACHER CV CARDIAC SERVICES PROCEDU RES Final Result from Last 3 Months Insurance [facility] Care Teams Aviation Maintenance Instructor Relationship Specialty Start Date End Date Lm Larsen MD [address] [place] [address] Dr [address] [facility] [place] [address] PCP - General Internal Medicine 01/03/25
--- OUTSIDE RECORDS SUMMARY | 2025-03-07 12:47 | XMS_ITS | Encounter Summary ---
Author Organization [facility] Address [address] [facility] [address] [place] [address] Phone Care Team Providers Care New Client Banking Services Clerk Name Role Phone Lizzie Everett Primary Care Provider [phone] Encounter Details Date Type Department Care Team (Late Contact Info) Description 02/25/2022 Telephone [facility] [address] [place] [address] Mj Soni MD [address] [facility] [address] [place] [address] Social History Tobacco Use Types [...] to speak with you for guidance. CB# [phone] Thank you documented in this encounter Plan of Treatment Upcoming Encounters Date Type Department Care Team (Late st Contact Info) Description 07/17/2025 1:15 PM EDT Office Visit [facility] [address] [address] Mj Soni MD [address] [address] documented as of this encounter Visit Diagnoses Not on filedocumented in this encounter Care Teams New Client Banking Services Clerk Relationship Specialty Start Date End Date Lizzie Everett PA [address] [facility] [address] [place], [place] PCP - General Physician Solar Sales Consultant 06/30/22 documented as of this encounter
--- OUTSIDE RECORDS SUMMARY | 2025-03-07 12:47 | XMS_ITS | Encounter Summary ---
Author Organization [facility] Address [address] [place] [address] Care Team Providers Care Social Science Instructor Name Role Phone Lizzie Everett PA-C Primary Care Provi kinsey Mj Soni MD Unavailable Unavailable Adolfo Durant MD Unavailable [phone] Vinicius Solis MD Unavailable [phone] Encounter Details Date Type Department Care Team (Late st Contact Info) Description 10/15/2023 Scanned Document [address] [place] [phone] Primary Care, Scan Social History Tobacco [...] filedocumented in this encounter Care Teams Social Science Instructor Relationship Specialty Start Date End Date Lizzie Everett PA-C 100 [place] [address] PCP - General Internal Medicine 10/12/23 07/28/24 Mj Soni MD [address] [place] [address] Nephrology 10/12/23 Adolfo Durant MD [address] [place] [address] Dr Lau [address] [place] [phone] Referring Provider Obstetrics and Gynecology 10/12/23 Vinicius Solis MD [address] [place] [address] Dr Lau [address] [place] [phone] Referring Provider Cardiology-Scan 10/12/23 Elisa Moulton [facility] Nurse Practitioner Sleep Medicine 10/05/23 Ajith Olson Physician Allergy and Immunology-Scan 10/05/23 documented as of this encounter
--- OUTSIDE RECORDS SUMMARY | 2025-03-07 12:47 | XMS_ITS | Encounter Summary ---
Author Organization [facility] Address [address] [place] [address] Care Team Providers Care Party Director Name Role Phone Lizzie Everett PA-C Primary Care Provi kinsey Mj Soni MD Unavailable Unavailable Adolfo Durant MD Unavailable [phone] Vinicius Solis MD Unavailable [phone] Encounter Details Date Type Department Care Team (Late st Contact Info) Description 10/15/2023 Scanned Document [address] [place] [phone] Primary Care, Scan Social History Tobacco [...] on filedocumented in this encounter Care Teams Party Director Relationship Specialty Start Date End Date Lizzie Everett PA-C 100 [place] [address] PCP - General Internal Medicine 10/12/23 07/28/24 Mj Soni MD [address] [place] [address] Nephrology 10/12/23 Adolfo Durant MD [address] [place] [address] Dr Lau [address] [place] [address] Referring Provider Obstetrics and Gynecology 10/12/23 Vinicius Solis MD [address] [place] [address] Dr Lau [address] [place] [phone] Referring Provider Cardiology-Scan 10/12/23 Elisa Moulton [facility] Nurse Practitioner Sleep Medicine 10/05/23 Ajith Olson Physician Allergy and Immunology-Scan 10/05/23 documented as of this encounter
--- OUTSIDE RECORDS SUMMARY | 2025-03-07 12:47 | XMS_ITS | Encounter Summary ---
Author Organization [facility] Address [address] [place] [address] Care Team Providers Care Knit Goods Press Hand Name Role Phone Lizzie Everett PA-C Primary Care Provi kinsey Mj Soni MD Unavailable Unavailable Adolfo Durant MD Unavailable [phone] Vinicius Solis MD Unavailable [phone] Encounter Details Date Type Department Care Team (Late st Contact Info) Description 10/19/2023 Scanned Document [facility] GASTRO SCAN Gastroenterology, Scan Social History Tobacco [...] on filedocumented in this encounter Care Teams Knit Goods Press Hand Relationship Specialty Start Date End Date Lizzie Everett PA-C [address] [place] [address] PCP - General Internal Medicine 10/12/23 07/28/24 Mj Soni MD [address] [place] [address] Nephrology 10/12/23 Adolfo Durant MD [address] [place] [address] Dr Lau [address] [place] [address] Referring Provider Obstetrics and Gynecology 10/12/23 Vinicius Solis MD [address] [place] [address] Dr Lau [address] [place] [address] Referring Provider Cardiology-Scan 10/12/23 Elisa Moulton [facility] Nurse Practitioner Sleep Medicine 10/05/23 Ajith Olson Physician Allergy and Immunology-Scan 10/05/23 documented as of this encounter
--- OUTSIDE RECORDS SUMMARY | 2025-03-07 12:47 | XMS_ITS | Encounter Summary ---
Author Organization [facility] Address [address] [place] [address] Care Team Providers Care Supervisor Insecticide Name Role Phone Lizzie Everett PA-C Primary Care Provi kinsey Mj Soni MD Unavailable Unavailable Adolfo Durant MD Unavailable [phone] Vinicius Solis MD Unavailable [phone] Encounter Details Date Type Department Care Team (Late st Contact Info) Description 04/01/2024 Scanned Document [address] [place] [address] Pcp, No Social History Tobacco Use [...] on filedocumented in this encounter Care Teams Supervisor Insecticide Relationship Specialty Start Date End Date Lizzie Everett PA-C [address] [place] [address] PCP - General Internal Medicine 10/12/23 07/28/24 Mj Soni MD [address] [place] [address] Nephrology 10/12/23 Adolfo Durant MD [address] [place] [address] Dr Lau [address] [place] [address] Referring Provider Obstetrics and Gynecology 10/12/23 Vinicius Solsi MD [address] [place] [address] Dr Lau [address] [place] [address] Referring Provider Cardiology-Scan 10/12/23 Elisa Moulton [facility] Nurse Practitioner Sleep Medicine 10/05/23 Ajith Olson Physician Allergy and Immunology-Scan 10/05/23 documented as of this encounter
== END 2025-03-07 10:24 | disposition home or self-care (01) ==
LOC: HO.LAB 10:23
PROVIDERS: PCP Internal Medicine; Visit Provider Internal Medicine
DX: Z13.1 Encounter for screening for diabetes mellitus (principal); E78.00 Pure hypercholesterolemia, unspecified
CPT/HCPCS: 36415; 80053; 80061; 82607; 82746; 83036; 83735; 84439; 84443; 85025

== ENCOUNTER 2025-03-13 15:35 | Outpatient (AMB) | payer BC, SELFPAY ==
--- OUTSIDE RECORDS SUMMARY | 2024-03-01 04:20 | XMS_ITS ---
Author Organization [facility] Address [address] [place] [address] [place] [phone] Care Team Providers Care Endless Track Vehicle Mechanic Name Role Phone Lm Larsen MD Primary Care Provider Fernando Xiong Jr REASON FOR VISIT celiac disease Encounters Encounter Location Date Provider Diagnosis [facility] [place] Out[place] [address] [place] [phone] 03/01/2024 Fernando Poole Jr Celiac disease K90.0 Assessments Encounter Date Diagnosis (ICD Code) Assessment Notes Treatment Notes Treatment Clinical Notes Section Notes 03/01/2024 Celiac disease (ICD-10 - K90.0) Plan Of Treatment Next Appt Details Provider Name:Fernando crawford Jr, 06/05/2025 09:20:00 AM, [address] [place] [address], Suite [facility], [place], [address], Progress Notes * TAYCHERYLNICOLASOB:1960 (64 yo F)Acc No.[id number]:03/01/2024 EGD/MAC Patient: JUAN J ALVES Provider: Guillaume Poole MD :1960 A ge:63 Y S ex:Female Date:03/01/2024 Address:[facility] [id number] Pcp:Lm Larsen MD Subjective: * Chief Complaints: [...] MD Date: Generated for Vivian castillo/Frank/Petersonsmitting on: 05/13/2024 04:47 PM EST
[2025-03-13 15:37] VITALS: BP 112/66; PULSE 62; TEMP 36.3; O2SAT 96; BMI 33.5
--- NOTE | 2025-03-13 15:37 | A.OFFPC_ITS ---
Vital Signs 03/13/25 15:37 Height 5 ft 4.96 in Weight 201 lb BMI 33.5 BP 112/66 Blood Pressure Location Lt brachial Position Sitting Pulse 62 Pulse Source Pulse Oximeter Temp 97.3 F Temp Source Temporal Artery Scan Pulse Oximetry (%) 96 Oxygen Delivery Method Room Air Intake Visit Reasons: IGT, Hypercholesterol Allergies shellfish derived Allergy (Mild, Verified 03/13/25 15:37) Anaphylaxis cefaclor (From Ceclor) Allergy (Verified 03/13/25 15:37) Hives codeine Allergy (Verified 03/13/25 15:37) Nausea and Vomiting erythromycin base Allergy (Verified 03/13/25 15:37) Hives gentamicin Allergy (Verified 03/13/25 15:37) Hives moxifloxacin (From Avelox) Allergy (Verified 03/13/25 15:37) Hives sulfamethoxazole (From Bactrim) Allergy (Verified 03/13/25 15:37) Hives trimethoprim (From Bactrim) Allergy (Verified 03/13/25 15:37) Hives tree nuts Allergy (Mild, Uncoded 03/13/25 15:37) Anaphylaxis Tobacco use date assessed: 03/13/25 Dental Screening Dental Screen Date: 03/13/25 Did you have a dental visit in the last 12 months?: Yes Did you have a dental problem in the last 6 months where you did not have access to dental care?: No Was dental information given to patient?: Patient has dentist [facility] Medical History (Updated 03/13/25 @ 16:13 by Lm Larsen MD) Anxiety Arrhythmia Celiac disease Sleep apnea HTN (hypertension) Venous (peripheral) insufficiency Asthma Hepatitis C antibody test positive Nephrolithiasis GERD (gastroesophageal reflux disease) IBS (irritable bowel syndrome) Environmental allergies Surgical History History of tonsillectomy Status post phlebectomy H/O lithotripsy Hx laparoscopic cholecystectomy Hx of right knee surgery Hx of dilation and curettage Hx of section Hx of colonoscopy History of esophagogastroduodenoscopy (EGD) Family History Maternal Grandmother Heart attack Breast cancer Maternal Aunt Breast cancer Other CVA (cerebral vascular accident) Substance use disorder Social History (Reviewed 03/13/25 @ 15:42 by SEBASTIAN Zhu Housing: House Alcohol intake: current Alcohol intake frequency: a few times a month Alcohol type: wine Comment: once Q 2 week 2 glasses Patient Tobacco Use Status: Former Tobacco user Tobacco use type: Cigarette Years Smoked: 1989 e-Cigarette/Vaping Use: Never Used Second Hand Smoke Exposure: Yes service: No Current occupational status: employed Current occupation: [employer] Cognitive needs: No Hearing needs: No Vision needs: Yes (Glasses) Questionnaire PHQ-9 Over the last 2 weeks, how often have you been bothered by any of the following problems? 1. Little interest or pleasure in doing things: several days 2. Feeling down, depressed, or hopeless: several days 3. Trouble falling or staying asleep, or sleeping too much: several days 4. Feeling tired or having little energy: several days 5. Poor appetite or overeating: several days 6. Feeling bad about yourself - or that you are a failure or have let yourself or your family down: not at all 7. Trouble concentrating on things, such as reading the newspaper or watching television: several days 8. Moving or speaking so slowly that other people could have noticed. Or the opposite - being so fidgety or restless that you have been moving around a lot more than usual: not at all 9. Thoughts that you would be better off or of hurting yourself in some way: not at all Total score: 6 Depression Screening Interpretation: Positive (referral placed for counseling) Depression Screening Follow-up: Existing condition Depression Screening Done: Yes Source: Developed by Drs. Cristobal Wu, Nasrin Plaza, Jamarcus Michael and colleagues, with an educational fadi from [employer]. Thrive Questionnaire Date Thrive assessed: 08/01/24 I am a: Patient What is your living situation today?: I have a steady place to live Within the past 12 months, did the food you bought not last and you didn't have the money to get more?: Never true Within the past 12 months, did you worry whether your food would run out before you got money to buy more?: Never true Do you have trouble paying for medicines?: No Do you have trouble getting transportation to medical appointments?: No Do you have trouble paying your heating and electricity bill?: No Do you have trouble taking care of your child, family member or friend?: No Do you have trouble with day-to-day activities such as bathing, preparing meals, shopping, managing finances, etc.?: No Are you currently unemployed and looking for a job?: No Are you interested in more education?: No Please select the resources that you would like help with: None Currently or been in a relationship where the following occur: No concerns reported THRIVE Score: 0 AUDIT C Alcohol Use Questionnaire (AUDIT-C) 1. How often do you have a drink containing alcohol?: 2-4 times a month 2. How many drinks containing alcohol do you have on a typical day when you are drinking?: 1 or 2 3. How often do you have six or more drinks on one occasion?: Never Total Score: 2 KAMAR-7 AMB Questionnaire KAMAR-7 Date KAMAR - 7 assessed: 08/08/24 Feeling nervous, anxious, or on edge: 1 = Several days Not being able to stop or control worryin = Several days Worrying too much about different things: 1 = Several days Trouble relaxin = Several days Being so restless that it is hard to sit still: 0 = Not at all Becoming easily annoyed or irritable: 1 = Several days Feeling afraid as if something awful might happen: 0 = Not at all Total KAMAR-7 score (0-4 normal; 5-9 mild; 10-14 moderate; 15-21 severe): 5 Source: Developed by Drs. Cristobal Wu, Nasrin Plaza, Jamarcus Michael and colleagues, with an educational fadi from [employer]. Physical exam (Primary Care) Vital Signs: Last Vital Signs Temp 97.3 F 03/13/25 15:37 Pulse 62 03/13/25 15:37 BP 112/66 03/13/25 15:37 Pulse Ox 96 03/13/25 15:37 Oxygen Delivery Method Room Air 03/13/25 15:37 BMI result Body Mass Index 33.5 Tobacco/Smoking Status: Tobacco use Status Tobacco use date assessed 03/13/25 03/13/25 15:43 Patient Tobacco Use Status Former Tobacco user 03/13/25 15:43 Tobacco use type Cigarette 03/13/25 15:43 e-Cigarette/Vaping Use Never Used 03/13/25 15:43 PHQ-9: PHQ-9 Score PHQ-9: Total score 6 03/13/25 16:02 Depression Screening Interpretation: Positive (referral placed for counseling) Depression Screening Follow-up: Existing condition Thrive Assessment: Date of Thrive Assessment Date Thrive assessed 08/01/24 03/13/25 15:43 Currently or been in a relationship where the following occur: No concerns reported Const General: alert; No acute distress Eyes Conjunctivae: conjunctivae normal Resp Auscultation: clear to auscultation bilaterally Cardio Rate: regular rate Rhythm: regular rhythm GI Inspection: Yes normal to inspection Extrem General: Yes normal to inspection and No edema Immunizations Tenivac (PF) 5 Lf unit-2 Lf unit/0.5 mL intramuscular syringe Performing Provider: Lm Larsen MD [facility] Administered by: Jigna Zhang CMA on 03/13/25 16:22 Dose Route Admin Location Dispensed Lot Number Expiration Date NDC [employer] 0.5 mL IM Right Deltoid 0.5 mL [id number] 08/09/26 51501-222-03 [employer] Total Dispensed Waste 0.5 mL 0 % VIS Given Date VIS Provided VIS Publication Date 03/13/25 Single Vaccine 20 Eligibility Eligibility Date Funding Source Not [facility] Eligible 03/13/25 Private Coding Level of Care Code Est Pt Level 4 (21291) Complex EM visit Add On G2211 Diagnoses HTN (hypertension) I10 Hypercholesterolemia E78.00 Impaired fasting blood sugar R73.01 Obesity (BMI 30-39.9) E66.9 GERD (gastroesophageal reflux disease) K21.9 Hepatic steatosis K76.0 Celiac disease K90.0 Sleep apnea G47.30 Generalized anxiety disorder F41.1 Palpitations R00.2 Bilateral hip pain M25.551; M25.552 Low back pain M54.50 Syncopal episodes R55 Assessment & Plan Assessment & Plan (1) HTN (hypertension): Code(s): I10 - Essential (primary) hypertension Category: Medical Plan: Continue with blood pressure medication. Decrease salt intake and exercise patient on amlodipine, hydrochlorothiazide, losartan 50 mg once a day metoprolol 50 mg once a day (2) Hypercholesterolemia: Code(s): E78.00 - Pure hypercholesterolemia, unspecified Category: Medical Plan: Avoid fried foods, chicken skin, eggs, butter margarine, pastries and meat. Be it pork or beef they have a lot of cholesterol LDL goal of less than 130 and tr iglyceride of less than 150 (3) Impaired fasting blood sugar: Code(s): R73.01 - Impaired fasting glucose Category: Medical Plan: Decrease the amount of carbohydrate intake, pasta, bread, rice and potatoes are all sugar and that is aside from all the sweet stuff, remember that fruits are good but they are Sweet also. (4) Obesity (BMI 30-39.9): Code(s): E66.9 - Obesity, unspecified Category: Medical Plan: Diet and exercise Avoid the foods that causes that usually spicy foods, tomato products, juices, coffee, soda and foods that your sensitive to. After eating do not lie down, allow 3-4 hours before in lie down. And keep the head of bed above 30 degrees to avoid the acid from going up. (5) GERD (gastroesophageal reflux disease): Code(s): K21.9 - Gastro-esophageal reflux disease without esophagitis Category: Medical (6) Hepatic steatosis: Code(s): K76.0 - Fatty (change of) liver, not elsewhere classified Category: Medical Plan: Low-fat diet and exercise (7) Celiac disease: Comment: will have joint inflammation/bloating/gas Code(s): K90.0 - Celiac disease Category: Medical Plan: Celiac diet (8) Sleep apnea: Comment: [facility] wears CPAP Code(s): G47.30 - Sleep apnea, unspecified Category: Medical Plan: Continue to use the CPAP more than 4 hours a night and benefits from this (9) Generalized anxiety disorder: Code(s): F41.1 - Generalized anxiety disorder Category: Medical Plan: Discussion about treatment (10) Palpitations: Code(s): R00.2 - Palpitations Category: Medical Plan: Patient is being followed up by Cardiology echocardiogram is normal. Holter did show multiple PVCs (11) Bilateral hip pain: Code(s): M25.551 - Pain in right hip; M25.552 - Pain in left hip Category: Medical (12) Low back pain: Code(s): M54.50 - Low back pain, unspecified Category: Medical (13) Syncopal episodes: Code(s): R55 - Syncope and collapse Category: Medical Plan History of Present Illness The patient is a 64-year-old female presenting for a follow-up visit. Her past medical history is significant for celiac disease, obstructive sleep apnea, hypertension, GERD, asthma, hypercholesterolemia, generalized anxiety disorder, hepatic steatosis, nephrolithiasis, and impaired glucose tolerance. For her palpitations, she was seen by cardiology in February 2025. An echocardiogram from March 01, 2025, was normal with an ejection fraction of 60-65% and no significant valvular dysfunction. A Holter monitor from February 21, 2025, revealed normal sinus rhythm with rare PACs, frequent PVCs, ventricular bigeminy and trigeminy, and rare couplets. She continues to experience palpitations despite being on metoprolol, and her political science faculty member recently doubled her dose to 50 mg daily in response to the increased PVCs on her Holter. The patient reports a fall a couple of weeks ago, prior to her echocardiogram. She describes turning and then suddenly being on the ground, without tripping, experiencing dizziness, or losing her balance, and landed on her right hip. The patient has a history of celiac disease and follows a gluten-free diet, though she occasionally has episodes of diarrhea after suspected exposure. Recent blood work from March 07 was notable for a low folic acid level, for which she is taking a prescription supplement. Her LDL cholesterol was elevated at 139, but her CBC, electrolytes, renal function, liver function, and blood sugar were all normal. She reports a new complaint of significant, chronic pain in her hips and low back, which she relates to her 44-year career of standing on her feet. The pain is worse on the right side and radiates into her thighs and hip flexors, somet imes making it difficult to walk. She undergoes chiropractic, massage, Reiki, and craniosacral therapy with only temporary relief. For health maintenance, her last colonoscopy was in June 2020, and there was no mammogram on record. She received a flu shot three weeks ago and has completed the shingles vaccine series but declined the recent COVID vaccine due to her heart issues. Health Maintenance The patient will receive a tetanus vaccination today. Follow-up is scheduled in 3 months, or sooner if needed. Patient will be contacted with the results of her imaging studies. Social History - Occupational History: Reports standing on her feet for 44 years as part of her job. - Substance Use: Does not drink caffeine or alcohol. - Nutrition: Drinks mostly water. - Follows a gluten-free diet and has been trying glyphosate-free oatmeal. - Exercise: Performs stretching exercises. Review of Systems - Cardiovascular: Reports palpitations, though improved. - Musculoskeletal: Reports severe pain in bilateral hips (right greater than left) and low back, with radiation to thighs and hip flexors. - Neurological: Reports a recent unexplained fall. - Denies dizziness or imbalance with the fall. - Denies frequent headaches, but reports occasional sinus headaches. - Gastrointestinal: Reports occasional diarrhea after suspected gluten exposure. - Denies other changes in bowel movements. - Genitourinary: Denies issues with urination. Physical Exam - Neck: Auscultation performed. - Thorax: Auscultation performed. Results - Labs from March 07: - Blood Count: Normal, no anemia. - Comprehensive Metabolic Panel: Normal electrolytes, renal function, liver function, and blood sugar. - Lipid Panel: LDL 139 mg/dL. - Folic Acid: Low. - Vitamin B12: Normal. - Thyroid Function: Normal. - Echocardiogram (March 01, 2025): EF 60-65%, no regional left ventricular wall motion abnormality, no hemodynamically significant valvular dysfunction. - Holter Monitor (February 21, 2025): Normal sinus rhythm with rare PACs, frequent PVCs, ventricular bigeminy and trigeminy with rare couplets. - EKG: Normal sinus rhythm. Plan Patient was informed and verbally consented to the use of an ambient scribe for clinic note documentation during this visit. 1. Palpitations And Unexplained Fall The patient is followed by cardiology for palpitations secondary to frequent PVCs. She will continue metoprolol, which was recently increased to 50 mg daily by her political science faculty member, as this has helped her symptoms. To evaluate her recent unexplained fall, a carotid ultrasound has been ordered. The patient was advised to notify her political science faculty member immediately if another similar event occurs. 2. Hip And Low Back Pain To evaluate the chronic bilateral hip and low back pain, x-rays of the hip, pelvis, and lumbosacral spine have been ordered. 3. Celiac Disease With Folic Acid Deficiency The patient will continue the folic acid supplement for her deficiency. It was recommended she start a daily multivitamin (e.g., Centrum) to prevent common nutrient deficiencies associated with celiac disease, including iron, zinc, calcium, and vitamins A, D, E, and K. She is to continue a strict gluten-free diet. 4. Hypercholesterolemia The patient's LDL is 139, with a goal of less than 130. The plan includes continued focus on diet and exercise. 5. Hypertension Continue current medication regimen of amlodipine, hydrochlorothiazide, losartan 50 mg, and metoprolol 50 mg daily. The importance of maintaining adequate hydration was emphasized. 6. Obstructive Sleep Apnea The patient is encouraged to continue using her CPAP for more than 4 hours per night. 7. Generalized Anxiety Disorder The patient declined pharmacotherapy for anxiety at this time. Discussion Notes I reviewed the patient's extensive history and recent cardiology workup. I explained that her echocardiogram was structurally normal, but the Holter monitor did show the PVCs causing her palpitations. We discussed that while her increased metoprolol dose has helped, further increases are limited by the risk of bradycardia and syncope. I addressed her report of an unexplained fall by ordering a carotid ultrasound to assess for other potential causes, and also ordered X-rays of her hips, pelvis, and back to evaluate her chronic pain. I reviewed her lab results, highlighting her low folic acid and slightly elevated LDL cholesterol. Given her celiac disease, I recommended she start a daily multivitamin to prevent common nutritional deficiencies and continue her folic acid supplement. We discussed vaccine status, and she agreed to receive a tetanus shot. I advised her on the importance of staying well-hydrated, especially with her blood pressure medications. I will call her with any abnormal imaging results and have scheduled a follow-up appointment in three months. Patient Instructions - Please go to the hospital to get the X-rays of your hip, pelvis, and back that were ordered. - We have ordered an ultrasound of the arteries in your neck; please schedule this test. - Continue taking your current medications as prescribed, including amlodipine, losartan, hydrochlorothiazide, and the new 50mg dose of metoprolol. - Start taking a daily multivitamin, such as Centrum for adults over 50, to support your nutritional needs. - Continue taking your folic acid supplement as prescribed. - Continue to follow a strict gluten-free diet for your celiac disease. - Use your CPAP machine for at least 4 hours every night for your sleep apnea. - Make sure to drink plenty of water throughout the day. - You will receive a tetanus shot today in the office. - If you have another fall or feel like you are going to pass out, please contact your political science faculty member right away. - Schedule a follow-up appointment in three months. - We will call you with the results of your X-rays and ultrasound. Orders: Orders XR hip BI w PEL1V Today M25.551 - Pain in right hip, M25.552 - Pain in left hip XR lumbar spine 2-3V Today M54.50 - Low back pain, unspecified Td Immunization Today Z23 - Encounter for immunization
--- OUTSIDE RECORDS SUMMARY | 2025-03-13 16:47 | XMS_ITS | Encounter Summary ---
Author Organization [facility] Address [address] [place] [address] Care Team Providers Care Photoengraving Retoucher Name Role Phone Lm Larsen MD Primary Care Provider [phone] Encounter Details Date Type Department Care Team (Late st Contact Info) Description 03/01/2025 Results Follow-Up [facility] [address] [place] [phone] Sadi Solano NP [address] [place] [address] Dr Lau [address] [place] [phone] Social History Tobacco Use Types Packs/Day Years [...] Description 05/25/2025 9:10 AM EST Office Visit [facility] [address] [place] [address] Dr [address] [place] [phone] Sadi Solano NP [address] [place] [address] [address] [place] [phone] documented as of this encounter Visit Diagnoses Not on filedocumented in this encounter Care Teams Photoengraving Retoucher Relationship Specialty Start Date End Date Chava, MD Lm [address] [place] [address] Dr [address] [facility] [place] [address] PCP - General Internal Medicine 01/03/25 documented as of this encounter
--- OUTSIDE RECORDS SUMMARY | 2025-03-13 16:48 | XMS_ITS | Encounter Summary ---
Author Organization [facility] Address [address] [place] [address] Care Team Providers Care Experimental Plastics Fabricator Name Role Phone Lizzie Everett PA-C Primary Care Provi kinsey Mj Soni MD Unavailable Unavailable Adolfo Durant MD Unavailable [phone] Vinicius Solis MD Unavailable [phone] Encounter Details Date Type Department Care Team (Late st Contact Info) Description 10/19/2023 Scanned Document [facility] GASTRO SCAN Gastroenterology, Scan Social History [...] on filedocumented in this encounter Care Teams Experimental Plastics Fabricator Relationship Specialty Start Date End Date Lizzie Everett PA-C [address] [place] [address] PCP - General Internal Medicine 10/12/23 07/28/24 Mj Soni MD [address] [place] [address] Nephrology 10/12/23 Adolfo Durant MD [address] [place] [address] Dr Lau [address] [place] [address] Referring Provider Obstetrics and Gynecology 10/12/23 Vinicius Solis MD [address] [place] [address] Dr Lau [address] [place] [address] Referring Provider Cardiology-Scan 10/12/23 Elisa Moulton [facility] Nurse Practitioner Sleep Medicine 10/05/23 Ajith Olson Physician Allergy and Immunology-Scan 10/05/23 documented as of this encounter
--- OUTSIDE RECORDS SUMMARY | 2025-03-13 16:48 | XMS_ITS | Encounter Summary ---
Author Organization [facility] Address [address] [place] [address] Care Team Providers Care Dock Clerk Name Role Phone Lizzie Everett PA-C Primary Care Provi kinsey Mj Soni MD Unavailable Unavailable Adolfo Durant MD Unavailable Vinicius Solis MD Unavailable [phone] Encounter Details Date Type Department Care Team (Late st Contact Info) Description 06/20/[address] [phone] Lizzie Everett PA-C [address] [place] [id number] Social History Tobacco Use Types Packs/Day Years Used Date Smoking Tobacco: Former Cigarettes 1 13 Smokeless Tobacco: Never Comments:Quit 32yrs ago Alcohol Use Standard Drinks/Week Comments Yes 0 (1 standard drink = 0.6 oz pur e alcohol) occasionally [facility] Utilities Answer Date Recorded In the past 12 months has [employer] electric, gas, oil, or water company threatened to shut off services in your home? No 06/06/2024 Social Connection and Isolation Panel Answer Date Recorded In a typical week, how many times do you talk on the phone with family, friends, or neighbors? More than three times a week 06/06/2024 Frequency of Social Gatherin gs with Friends and Family Not on file 06/06/2024 Attends [employer] Services Not on file 01/27 /2025 Active [...] any time in the past 12 m [facility], were you homeless or living in a intermediate (including now)? No 06/06/2024 Education Answer Date [...] on filedocumented in this encounter Care Teams Dock Clerk Relationship Specialty Start Date End Date Lizzie Everett PA-C [address] [place] [address] PCP - General Internal Medicine 10/12/23 07/28/24 Mj Soni MD [address] [place] [address] Nephrology 10/12/23 Adolfo Durant MD [address] [place] [address] [place] [address] Referring Provider Obstetrics and Gynecology 10/12/23 Vinicius Solis MD [address] [place] [address] [place] [address] Referring Provider Cardiology-Scan 10/12/23 Elisa Moulton [facility] Nurse Practitioner Sleep Medicine 10/05/23 Ajith Olson Physician Allergy and Immunology-Scan 10/05/23 documented as of this encounter
--- OUTSIDE RECORDS SUMMARY | 2025-03-13 16:48 | XMS_ITS | Patient Health Record ---
Author Organization [facility] Address [address] [place] [address] Care Team Providers Care Melt Down Furnace Operator Name Role Phone Po Lm TAMEZ Primary Care Provider Fernando Xiong Jr Unavailable [phone] Allergies Allergen (clinical drug ingredient) Drug/Non Drug Allergy documented on EMR Reaction Allergy Type Onset Date Status erythromycin Erythromycin Unknown Drug Allergy A ctive codeine Codeine Sulfate Unknown Drug Allergy A ctive sulfamethoxazole / trimethoprim Bactrim Unknown Drug Allergy Active moxifloxacin Avelox Unknown Drug Allergy Acti ve celiac disease (uncoded) Unknown Allergy Active cefaclor Ceclor (uncoded) Unknown Allergy Act leah Gentamicin in Saline Unknown Drug Allergy Active Reason For Referral No Information Medications Medication [...] W/U Status Risk Notes Problem Epigastric pain (14569228) Epigastric pain (R10.13) Active confirmed Problem Celiac disease (384866414) Celiac disease (K90.0) Active confirmed Problem Diverticulitis (05492623) Diverticulitis (K57.92) Active confirmed Problem Gastroesophageal reflux disease without esophagitis (294132282) Gastroesophageal reflux disease without esophagitis (K21.9) Active confirmed Problem Fatty liver (880484161) Fatty liver (K76.0) Active confirmed Problem Screening for colon cancer (244383593) Screening for colon cancer (Z12.11) Active confirmed Problem Hepatitis C antibody test positive (523482327) Positive hepatitis C antibody test (R76.8) Active confirmed Problem Irritable bowel syndrome (64991914) Irritable bowel syndrome with both constipation and diarrhea (K58.2) Active confirmed Problem Right upper quadrant pain (975721919) RUQ pain (R10.11) Active confirmed Vital Signs Temperature 99.1 degrees Fahrenheit 07/25/2024 Blood pressure diastolic 01 mm Hg 07/25/2024 Height 66 in 07/25/2024 Blood pressure systolic 001 mm Hg 07/25/2024 Weight 195.6 lbs 07/25/2024 BMI 31.57 kg/m2 07/25/2024 Encounters Encounter Location Date Provider Diagnosis [facility] [address] [place] [phone] 07/25/2024 Fernando Poole Jr Gastroesophageal reflux disease without esophagitis K21.9 ; Irritable bowel syndrome with both constipation and diarrhea K58.2 and Celiac disease K90.0 [facility] [address] [place] [phone] 03/14/2024 Fernando Poole Jr Epigastric pain R10.13 [facility] [address] [place] [phone] 09/28/2024 Fernando Poole Jr Assessments Encounter Date [...] 01/18/2024 Next Appt Details Provider Name:Fernando crawford Jr, 06/05/2025 09:20:00 AM, [address] [place] [address], [address], [place], [address], Insurance Providers Payer Name Payer Address Payer Phone Subscriber Number Group Number Insured Name Patient Relationship to Insured Coverage Start Date Coverage End Date [facility] [address] [place] [address] [id number] JUAN J CROSS Self - patient is [...]
--- OUTSIDE RECORDS SUMMARY | 2025-03-13 16:48 | XMS_ITS | Encounter Summary ---
Author Organization [facility] Address [address] [place] [address] Care Team Providers Care Senior Mortgage Loan Processor Name Role Phone Lizzie Everett PA-C Primary Care Provi kinsey Mj Soni MD Unavailable Unavailable Adolfo Durant MD Unavailable [phone] Vinicius Solis MD Unavailable [phone] Encounter Details Date Type Department Care Team (Late st Contact Info) Description 10/15/2023 Scanned Document [address] [place] [phone] Primary Care, Scan Social History Tobacco [...] on filedocumented in this encounter Care Teams Senior Mortgage Loan Processor Relationship Specialty Start Date End Date Lizzie Everett PA-C [address] [place] [address] PCP - General Internal Medicine 10/12/23 07/28/24 Mj Soni MD [address] [place] [address] Nephrology 10/12/23 Adolfo Durant MD [address] [place] [address] Dr Lau [address] [place] [address] Referring Provider Obstetrics and Gynecology 10/12/23 Vinicius Solis MD [address] [place] [address] Dr Lau [address] [place] [address] Referring Provider Cardiology-Scan 10/12/23 Elisa Moulton [facility] Nurse Practitioner Sleep Medicine 10/05/23 Ajith Olson Physician Allergy and Immunology-Scan 10/05/23 documented as of this encounter
--- OUTSIDE RECORDS SUMMARY | 2025-03-13 16:48 | XMS_ITS | Clinical Summary ---
Author Organization [address] [place] [address] [place] [phone] Phone Care Team Providers Care Technical Support Analyst Name Role Phone Lm Larsen MD Primary Care Provider [phone] Allergies Active Allergy Reactions Criticality Noted Date [...] trigeminy. Rare couplets and ventricular bigeminy. PVC [place] was 3.5%. Placing a new Holter monitor [...] Description 03/01/2025 8:00 AM EDT Ancillary Procedure [facility] [address] [place] [phone] Palpitations; Multiple premature ventricular complexes 03/01/2025 Results Follow-Up [facility] [address] [place] [address] Sadi Solano NP 02/22/2025 Results Follow-Up [facility] [address] [place] [address] Sadi Solano NP 02/21/2025 10:40 AM EDT Office Visit [facility] [address] [place] [address] Sadi Solano NP Palpitations (Primary Dx); Secondary hypertension; Multiple premature ventricular complexes 02/21/2025 9:00 AM EDT Ancillary Procedure [facility] [address] [place] [address] Palpitations 02/21/2025 Telephone [facility] [address] [facility] [address] [place] [address] Vinicius Solis MD 01/25/2025 Telephone [facility] [address] [place] [phone] Sadi Solano NP 01/03/2025 2:30 PM EDT Ancillary Procedure [facility] [address] [place] [phone] Palpitations 01/03/2025 Telephone [facility] [address] [place] [address] Vinicius Solis MD from Last 3 Months Surgical History Surgery Date Site/Laterality Comments BREAST LUMPECTOMY 05/11/2012 PROCEDURE: ---- BREAST LUMP BIOPSY ---- LITHOTRIPSY 05/11/2006 PROCEDURE: HISTORICAL LITHOTRIPSY OTHER SURGICAL HISTORY 05/11/2011 PROCEDURE: [place] HYSTEROSCOPY DIAGNOSTIC SEPARATE PROCEDURE OTHER SURGICAL HISTORY [...] Description 05/25/2025 9:10 AM EST Office Visit [facility] [address] [place] [address] CycSadi borges NP [address] [place] [address] Dr Lau [address] [place] [phone] Health Maintenance Due Date Last Done Comments [...] (03/01/2025 8:27 AM EDT) Left [facility] [place] 6.0 cm CV PACS Left [facility] [place] 5.2 cm CV PACS [place] Area Sys [...] 4:06 AM EDT Performed at: 01 - [facility] [id number] Freelance Displayer: Mala Kaye MD, Phone: [phone] Sadi Solano NP LAB BLOOD ORDERABLES Final Result Performing Organization Address [facility] de Phone Number [facility] 1 * Magnesium (02/21/2025 12:04 PM EDT) Only the most recent of2 resultswithin the time period is included. Magnesium 2.0 1.6 - 2.3 mg/dL [facility] 1 Blood Venous blood specimen / Unknown 02/21/2025 12:04 PM EDT 02/21/2025 Narrative [facility] 1 - 02/22/2025 8:08 AM EDT Performed at: - [facility] [id number] Freelance Displayer: Mala Kaye MD, Phone: [phone] Sadi Solano NP LAB BLOOD ORDERABLES Final Result Performing Organization Address [facility] [place] [facility] de Phone Number [facility] 1 [...] 02/22/2025 4:06 AM EDT Performed at: - [facility] [id number] Freelance Displayer: Mala Kaye MD, Phone: [phone] Sadi Solano NP LAB BLOOD ORDERABLES Final Result [facility] 1 * CARDIAC HOLTER MONITOR (REPORT GENERATED IN HOUSE) (02/21/2025 11:33 AM EDT) Anatomical Region Laterality Modality Cardiac Diagnost ic Narrative 02/23/2025 2:14 PM EDT [facility] DIAGNOSTIC TESTING DEPARTMENT [address] [place] [address] TEL: FAX: Type of test: 24 hour Holter Monitor Date of test: 02/21/25 Ordering provider: Vinicius Solano NP Reason for Test: Palpitations PVCA Orthotics Assistant Findings: 1: Normal Sinus Rhythm. 2: Rare [...] 01/16/2025 11:06 PM EDT Performed at: - [facility] [id number] Freelance Displayer: Mala Kaye MD, Phone: [phone] Sadi Solano NP LAB BLOOD ORDERABLES Final [...] PM EDT Performed at: 01 - [facility] [address] [id number] Freelance Displayer: Mala Kaye MD, Phone: [phone] Sadi Solano RESIDENTIAL INTERIOR DESIGNER LAB BLOOD ORDERABLES Final Result Performing Organization Address [facility] [place] [facility]/ZIP Co de Phone Number [facility] 1 * N-Terminal Probnp (01/16/2025 8:32 AM EDT) [facility] NT-proBNP 67 0 - 287 pg/mL [facility] [...] 11:06 PM EDT Performed at: 01 - [facility] [id number] Freelance Displayer: Mala Kaye MD, Phone: [phone] us Sadi Solano NP LAB BLOOD ORDERABLES Final Result Performing Organization Address [facility] [place] [facility] Co de Phone Number [facility] 1 * CARDIAC HOLTER MONITOR (REPORT GENERATED IN HOUSE) (01/03/2025 2:42 PM EDT) Anatomical Region Laterality Modality Cardiac Diagnost ic Narrative 01/13/2025 9:56 AM EDT [facility] DIAGNOSTIC TESTING DEPARTMENT [address] [place] [address], [place] [address] TEL: FAX: Type of Test: 24 Hour Holter Monitor Date of Test: 01/03/2025 Ordering Provider: Sadi Solano NP Reason for Test: Palpitations Impression: 1: Normal Sinus Rhythm. 2: Rare PACs. 3: Frequent PVCs and ventricular trigeminy. Rare couplets and ventricular bigeminy. PVC [place] was 3.5%. 4: No significant pause noted, longest R-R was 1.4 seconds at 7:33 AM. 5: Diary returned with symptoms of palpitations noted. EKG at those times showed Normal Sinus Rhythm and frequent isolated PVCs and ventricular trigeminy. Heart rates were in the range of 86-96 bpm. Sadi Solano RESIDENTIAL INTERIOR DESIGNER [facility] PROCEDU RES Final Result from Last 3 Months Insurance [facility] Care Teams Technical Support Analyst Relationship Specialty Start Date End Date Lm Larsen MD [address] [place] [address] Dr [address] [facility] [place] [address] PCP - General Internal Medicine 01/03/25
--- OUTSIDE RECORDS SUMMARY | 2025-03-13 16:48 | XMS_ITS | Encounter Summary ---
Author Organization [facility] Address [address] [place] [address] Care Team Providers Care Flag Maker Name Role Phone Lizzie Everett PA-C Primary Care Provi kinsey Mj Soni MD Unavailable Unavailable dAolfo Durant MD Unavailable [phone] Vinicius Solis MD Unavailable [phone] Encounter Details Date Type Department Care Team (Late st Contact Info) Description 10/19/2023 Scanned Document [facility] GASTRO SCAN Gastroenterology, Scan Social [...] on filedocumented in this encounter Care Teams Flag Maker Relationship Specialty Start Date End Date Lizzie Everett PA-C [address] [place] [address] PCP - General Internal Medicine 10/12/23 07/28/24 Mj Soni MD [address] [facility] [place] [address] Nephrology 10/12/23 Adolfo Durant MD [address] [place] [address] Dr Lau [address] [place] [address] Referring Provider Obstetrics and Gynecology 10/12/23 Vinicius Solis MD [address] [place] [address] Dr Lau [address] [place] [address] Referring Provider Cardiology-Scan 10/12/23 Elisa Moulton [facility] Nurse Practitioner Sleep Medicine 10/05/23 Ajith Olson Physician Allergy and Immunology-Scan 10/05/23 documented as of this encounter
--- OUTSIDE RECORDS SUMMARY | 2025-03-13 16:48 | XMS_ITS | Clinical Summary ---
Author Organization [facility] Address [address] [place] [address] Care Team Providers Care Inspector Packager Name Role Phone Mj Soni MD Unavailable Unavailable Adolfo Durant MD Unavailable [phone] Vinicius Solis MD Unavailable [phone] Allergies Active Allergy Reactions Criticality Noted Date [...] = 0.6 oz pur e alcohol) occasionally Genomindities Answer Date Recorded In the past 12 months has e [employer] [place], gas, oil, or water [employer] threatened to shut off services in your home? No 06/06/2024 Social Connection and Isolation Panel Answer Date Recorded In a typical week, how many times do you talk on the phone with family, friends, or neighbors? More than three times a week 06/06/2024 Frequency of Social Gatherin gs with Friends and Family Not on file 06/06/2024 Attends [employer] Services Not on file 06/06 Active Member [...] any time in the past [address] [facility], were you homeless or living in a correction (including now)? No 06/06/2024 Education Answer Date [...] years and older and Patients Discontinued Insurance [employer] Care Teams Inspector Packager Relationship Specialty Start Date End Date Mj Soni MD Nephrology 10/12/23 Adolfo Durant MD [address] [place] [address] Dr Lau [address] [place] [address] Referring Provider Obstetrics and Gynecology 10/12/23 Vinicius Solis MD [address] [place] [address] Dr Lau [address] [place] [address] Referring Provider Cardiology-Scan 10/12/23 Elisa Moulton [facility] Nurse Practitioner Sleep Medicine 10/05/23 Ajith Olson Physician Allergy and Immunology-Scan 10/05/23
--- OUTSIDE RECORDS SUMMARY | 2025-03-13 16:48 | XMS_ITS | Encounter Summary ---
Author Organization [facility] Address [address] [place] [address] Care Team Providers Care Watch Mechanic Name Role Phone Lizzie Everett PA-C Primary Care Provi kinsey Mj Soni MD Unavailable Unavailable Adolfo Durant MD Unavailable [phone] Vinicuis Solis MD Unavailable [phone] Encounter Details Date Type Department Care Team (Late st Contact Info) Description 10/15/2023 Scanned Document [address] [place] [address] Primary Care, Scan Social History Tobacco [...] on filedocumented in this encounter Care Teams Watch Mechanic Relationship Specialty Start Date End Date Lizzie Everett PA-C [address] [place] [address] PCP - General Internal Medicine 10/12/23 07/28/24 Mj Soni MD [address] [place] [address] Nephrology 10/12/23 Adolfo Durant MD [address] [place] [address] Dr Lau [address] [place] [address] Referring Provider Obstetrics and Gynecology 10/12/23 Vinicius Solis MD [address] [place] [address] Dr Lau [address] [place] [address] Referring Provider Cardiology-Scan 10/12/23 lEisa Moulton [facility] Nurse Practitioner Sleep Medicine 10/05/23 Ajith Olson Physician Allergy and Immunology-Scan 10/05/23 documented as of this encounter
--- OUTSIDE RECORDS SUMMARY | 2025-03-13 16:48 | XMS_ITS | Encounter Summary ---
Author Organization [facility] Address [address] [place] [address] Care Team Providers Care Floor Molder Name Role Phone Lizzie Everett PA-C Primary Care Provi kinsey Mj Soni MD Unavailable Unavailable Adolfo Durant MD Unavailable [phone] Vinicius Solis MD Unavailable [phone] Encounter Details Date Type Department Care Team (Late st Contact Info) Description 04/01/2024 Scanned Document [address] [place] [address] Pcp, No Social History Tobacco [...] on filedocumented in this encounter Care Teams Floor Molder Relationship Specialty Start Date End Date Lizzie Everett PA-C [address] [place] [address] PCP - General Internal Medicine 10/12/23 07/28/24 Mj Soni MD [address] [place] [address] Nephrology 10/12/23 Adolfo Durant MD [address] [place] [address] Dr Lau [address] [place] [address] Referring Provider Obstetrics and Gynecology 10/12/23 Vinicius Solis MD [address] [place] [address] Dr Lau [address] [place] [address] Referring Provider Cardiology-Scan 10/12/23 Elisa Moulton [facility] Nurse Practitioner Sleep Medicine 10/05/23 Ajith Olson Physician Allergy and Immunology-Scan 10/05/23 documented as of this encounter
== END 2025-03-13 16:25 | disposition home or self-care (01) ==
LOC: HO.HMCH 15:35
PROVIDERS: Visit Provider Internal Medicine
DX: I10 Essential (primary) hypertension (principal); E78.00 Pure hypercholesterolemia, unspecified; E66.9 Obesity, unspecified; Z68.33 Body mass index [BMI] 33.0-33.9, adult; R73.01 Impaired fasting glucose; K21.9 Gastro-esophageal reflux disease without esophagitis; K76.0 Fatty (change of) liver, not elsewhere classified; K90.0 Celiac disease; G47.30 Sleep apnea, unspecified; F41.1 Generalized anxiety disorder; R00.2 Palpitations; M25.551 Pain in right hip; M25.552 Pain in left hip; M54.50 Low back pain, unspecified; R55 Syncope and collapse; Z23 Encounter for immunization

== ENCOUNTER → 2025-03-13 15:35 | Outpatient (BNVA) | payer BC, SELFPAY | PROVIDERS: Visit Provider Internal Medicine | DX: I10 Essential (primary) hypertension (principal); E78.00 Pure hypercholesterolemia, unspecified; R73.01 Impaired fasting glucose; E66.9 Obesity, unspecified; K21.9 Gastro-esophageal reflux disease without esophagitis; K76.0 Fatty (change of) liver, not elsewhere classified; K90.0 Celiac disease; F41.1 Generalized anxiety disorder; R00.2 Palpitations; M25.551 Pain in right hip; M25.552 Pain in left hip; M54.50 Low back pain, unspecified; R55 Syncope and collapse; Z23 Encounter for immunization; G47.33 Obstructive sleep apnea (adult) (pediatric); Z99.89 Dependence on other enabling machines and devices | CPT/HCPCS: 90471; 90714; 96127 ==

== ENCOUNTER 2025-03-14 11:53 | Outpatient (REF) | payer BC, SELFPAY ==
--- OUTSIDE RECORDS SUMMARY | 2024-03-01 04:20 | XMS_ITS ---
Author Organization [facility] Address [address] [place] [address] [place] [phone] Care Team Providers Care Learning Development Specialist Name Role Phone Lm Larsen MD Primary Care Provider Fernando Xiong Jr REASON FOR VISIT celiac disease Encounters Encounter Location Date Provider Diagnosis [facility] Out[facility] [address] [place] [id number] 03/01/2024 Fernando Poole Jr Celiac disease K90.0 Assessments Encounter Date Diagnosis (ICD Code) Assessment Notes Treatment Notes Treatment Clinical Notes Section Notes 03/01/2024 Celiac disease (ICD-10 - K90.0) Plan Of Treatment Next Appt Details Provider Name:Fernando crawford Jr, 06/05/2025 09:20:00 AM, [address] [place] [address], Suite [facility], [place], [address], Progress Notes * TAYCHERYLNICOLASOB:1960 (64 yo F)Acc No.[id number]:03/01/2024 EGD/MAC Patient: JUAN J ALVES Provider: Guillaume Poole MD :1960 A ge:63 Y S ex:Female Date:03/01/2024 Address:[facility] [place] Pcp:Lm Larsen MD Subjective: * Chief Complaints: * 1 . Celiac disease. * Medical History: Objective: * Vitals: Assessment: * Assessment: 1. C eliac disease - K90.0 (Primary) Plan: * Treatment: * Procedure Codes: 4 3239 UPPER GI ENDOSCOPY, BIOPSY * * The named appointment provid er may or may not be the originator of this progress note, and it is not deemed complete until electronically signed by the appointment provider. Sign off status: Pending * Provider: Guillaume Poole MD Date: Generated for Vivian castillo/Frank/Petersonsmitting on: 05/14/2024 02:42 PM EST
--- NOTE | ~2025-03-14 | XR_ITS ---
EXAMINATION: Bilateral hip and AP pelvis. Lumbar spine. CLINICAL INDICATION: Low back pain and right hip pain. COMPARISON: Nothing recent. TECHNIQUE: AP and bilateral hips 5 views. Lumbar spine 3 views. FINDINGS: AP pelvis: There is mild loss of bilateral hip joint space with subchondral cystic changes. Rest of the pelvic bones are unremarkable. There SI joints are symmetrical and normal. No soft tissue abnormality seen. RIGHT HIP: AP and frog-leg views right hip reveals loss of right hip joint space without bony erosive changes. There is minimal lateral acetabular spurring. Subchondral cystic changes are seen along the femoral head. No fracture or dislocation. The soft tissues are normal. LEFT HIP: AP and frog-leg views reveal mild loss of left hip joint space with minimal subchondral cystic changes along the femoral head and the acetabulum. There is mild lateral acetabular spurring. No fracture or subluxation seen. LUMBAR SPINE: There is normal lumbar lordosis. The vertebral heights and alignment is normal. There is mild loss of L5-S1 disc height. Rest of the disc heights are normal. No visible acute fracture, dislocation or subluxation seen. Is mild right facet arthropathy L4-5 disc level. Incidental finding of right cholecystectomy [place]. 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 No visible acute fracture, dislocation or subluxation seen. Mild degenerative disc changes L5-S1 disc level. No visible acute fracture or dislocation seen. Electronically signed by: Deyvi Potter MD 03/14/2025 12:52 PM [facility]
--- NOTE | ~2025-03-14 | XR_ITS ---
EXAMINATION: Bilateral hip and AP pelvis. Lumbar spine. CLINICAL INDICATION: Low back pain and right hip pain. COMPARISON: Nothing recent. TECHNIQUE: AP and bilateral hips 5 views. Lumbar spine 3 views. FINDINGS: AP pelvis: There is mild loss of bilateral hip joint space with subchondral cystic changes. Rest of the pelvic bones are unremarkable. There SI joints are symmetrical and normal. No soft tissue abnormality seen. RIGHT HIP: AP and frog-leg views right hip reveals loss of right hip joint space without bony erosive changes. There is minimal lateral acetabular spurring. Subchondral cystic changes are seen along the femoral head. No fracture or dislocation. The soft tissues are normal. LEFT HIP: AP and frog-leg views reveal mild loss of left hip joint space with minimal subchondral cystic changes along the femoral head and the acetabulum. There is mild lateral acetabular spurring. No fracture or subluxation seen. LUMBAR SPINE: There is normal lumbar lordosis. The vertebral heights and alignment is normal. There is mild loss of L5-S1 disc height. Rest of the disc heights are normal. No visible acute fracture, dislocation or subluxation seen. Is mild right facet arthropathy L4-5 disc level. Incidental finding of right cholecystectomy [place]. XR/XR lumbar spine 2-3V IMPRESSION: Mild degenerative arthritic changes bilateral hip joints. No visible acute fracture, dislocation or subluxation seen. Mild degenerative disc changes L5-S1 disc level. No visible acute fracture or dislocation seen. Electronically signed by: Deyvi Potter MD 03/14/2025 12:52 PM [facility]
--- OUTSIDE RECORDS SUMMARY | 2025-03-14 14:43 | XMS_ITS | Encounter Summary ---
Author Organization [facility] Address [address] [facility] [address] [place] [address] Phone Care Team Providers Care Ceramic Engineering Professor Name Role Phone Lizzie Everett Primary Care Provider [phone] Encounter Details Date Type Department Care Team (Late Contact Info) Description 02/25/2022 Telephone [facility] [address] [facility] [address] [place] [address] Mj Soni MD [address] [facility] [address] [place] [address] Social History Tobacco Use Types [...] to speak with you for guidance. CB# [phone] Thank you documented in this encounter Plan of Treatment Upcoming Encounters Date Type Department Care Team (Late st Contact Info) Description 07/17/2025 1:15 PM EDT Office Visit [facility] [address] [address] Mj Soni MD [address] [address] documented as of this encounter Visit Diagnoses Not on filedocumented in this encounter Care Teams Ceramic Engineering Professor Relationship Specialty Start Date End Date Lizzie Everett PA [address] [facility] [address] [place], [place] PCP - General Physician Regrader 06/30/22 documented as of this encounter
--- OUTSIDE RECORDS SUMMARY | 2025-03-14 14:43 | XMS_ITS | Encounter Summary ---
Author Organization [facility] Address [address] [place] [address] Care Team Providers Care Warehouse Supervisor 3Rd Shift Name Role Phone Lizzie Everett PA-C Primary Care Provi kinsey Mj Soni MD Unavailable Unavailable Adolfo Durant MD Unavailable [phone] Vinicius Solis MD Unavailable [phone] Encounter Details Date Type Department Care Team (Late st Contact Info) Description 04/01/2024 Scanned Document [address] [place] [address] Pcp, No Social History Tobacco [...] on filedocumented in this encounter Care Teams Warehouse Supervisor 3Rd Shift Relationship Specialty Start Date End Date Lizzie Everett PA-C [address] [place] [address] PCP - General Internal Medicine 10/12/23 07/28/24 Mj Soni MD [address] [place] [address] Nephrology 10/12/23 Adolfo Durant MD [address] [place] [address] Dr [address] [place] [address] Referring Provider Obstetrics and Gynecology 10/12/23 Vinicius Solis MD [address] [place] [address] Dr Lau [address] [place] [address] Referring Provider Cardiology-Scan 10/12/23 Elisa Moulton [facility] Nurse Practitioner Sleep Medicine 10/05/23 Ajith Olson Physician Allergy and Immunology-Scan 10/05/23 documented as of this encounter
--- OUTSIDE RECORDS SUMMARY | 2025-03-14 14:43 | XMS_ITS | Encounter Summary ---
Author Organization [facility] Address [address] [place] [address] Care Team Providers Care Pavilion Cutter Name Role Phone Lizzie Everett PA-C Primary Care Provi kinsey Mj Soni MD Unavailable Unavailable Adolfo Durant MD Unavailable [phone] Vinicius Solis MD Unavailable [phone] Encounter Details Date Type Department Care Team (Late st Contact Info) Description 10/15/2023 Scanned Document [address] [place] [address] Primary Care, Scan Social History Tobacco [...] on filedocumented in this encounter Care Teams Pavilion Cutter Relationship Specialty Start Date End Date Lizzie Everett PA-C [address] [place] [address] PCP - General Internal Medicine 10/12/23 07/28/24 Mj Soni MD [address] [place] [address] Nephrology 10/12/23 Adolfo Durant MD [address] [place] [address] [address] [place] [address] Referring Provider Obstetrics and Gynecology 10/12/23 Vinicius Solis MD [address] [place] [address] Dr Lau [address] [place] [address] Referring Provider Cardiology-Scan 10/12/23 Elisa Moulton [facility] Nurse Practitioner Sleep Medicine 10/05/23 Ajith Olson Physician Allergy and Immunology-Scan 10/05/23 documented as of this encounter
--- OUTSIDE RECORDS SUMMARY | 2025-03-14 14:43 | XMS_ITS | Encounter Summary ---
Author Organization [facility] Address [address] [place] [address] Care Team Providers Care Cylinder Inspector Name Role Phone Lizzie Everett PA-C Primary Care Provi kinsey Mj Soni MD Unavailable Unavailable Adolfo Durant MD Unavailable [phone] Vinicius Solis MD Unavailable [phone] Encounter Details Date Type Department Care Team (Late st Contact Info) Description 10/15/2023 Scanned Document [address] [place] [phone] Primary Care, Scan Social History Tobacco [...] on filedocumented in this encounter Care Teams Cylinder Inspector Relationship Specialty Start Date End Date Lizzie Everett PA-C [address] [place] [address] PCP - General Internal Medicine 10/12/23 07/28/24 Mj Soni MD [address] [place] [address] Nephrology 10/12/23 Adolfo Durant MD [address] [place] [address] Dr Lau [address] [place] [address] Referring Provider Obstetrics and Gynecology 10/12/23 Vinicius Solis MD [address] [place] [address] Dr Lau [address] [place] [address] Referring Provider Cardiology-Scan 10/12/23 Elisa Moulton [facility] Nurse Practitioner Sleep Medicine 10/05/23 Ajith Olson Physician Allergy and Immunology-Scan 10/05/23 documented as of this encounter
--- OUTSIDE RECORDS SUMMARY | 2025-03-14 14:43 | XMS_ITS | Clinical Summary ---
Author Organization [facility] Address [address] [place] [address] Care Team Providers Care Ship'S Captain Name Role Phone Mj Soni MD Unavailable Unavailable Adolfo Durant MD Unavailable [phone] Vinicius Solis MD Unavailable [phone] Allergies Active Allergy Reactions Criticality Noted Date [...] = 0.6 oz pur e alcohol) occasionally Price Interactiveities Answer Date Recorded In the past 12 months has e [employer], gas, oil, or water [employer] threatened to shut off services in your home? No 06/06/2024 Social Connection and Isolation Panel Answer Date Recorded In a typical week, how many times do you talk on the phone with family, friends, or neighbors? More than three times a week 06/06/2024 Frequency of Social Gatherin gs with Friends and Family Not on file 06/06/2024 Attends [employer] Not on file 06/06 Active Member [...] any time in the past 12 m [facility], were you homeless or living in a long term (including now)? No 06/06/2024 Education Answer Date [...] years and older and Patients Discontinued Insurance [facility] Care Teams Ship'S Captain Relationship Specialty Start Date End Date Mj Soni MD Nephrology 10/12/23 Adolfo Durant MD [address] [place] [address] [address] [place] [address] Referring Provider Obstetrics and Gynecology 10/12/23 Vinicius Solis MD [address] [place] [address] Dr [address] [place] [address] Referring Provider Cardiology-Scan 10/12/23 Elisa Moulton [facility] Nurse Practitioner Sleep Medicine 10/05/23 jAith Olson Physician Allergy and Immunology-Scan 10/05/23
--- OUTSIDE RECORDS SUMMARY | 2025-03-14 14:43 | XMS_ITS | Encounter Summary ---
Author Organization [facility] Address [address] [place] [address] Care Team Providers Care Biometrics Consultant Name Role Phone Lizzie Everett PA-C Primary Care Provi kinsey Mj Soni MD Unavailable Unavailable Adolfo Durant MD Unavailable [phone] Vinicius Solis MD Unavailable [phone] Encounter Details Date Type Department Care Team (Late st Contact Info) Description 10/19/2023 Scanned Document [facility] GASTRO SCAN Gastroenterology, Scan Social [...] on filedocumented in this encounter Care Teams Biometrics Consultant Relationship Specialty Start Date End Date Lizzie Everett PA-C [address] [place] [address] PCP - General Internal Medicine 10/12/23 07/28/24 Mj Soni MD [address] [place] [address] Nephrology 10/12/23 Adolfo Durant MD [address] [place] [address] Dr Lau [address] [place] [address] Referring Provider Obstetrics and Gynecology 10/12/23 Vinicius Solis MD [address] [place] [address] Dr Lau [address] [place] [address] Referring Provider Cardiology-Scan 10/12/23 Elisa Moulton [facility] Nurse Practitioner Sleep Medicine 10/05/23 Ajith Olson Physician Allergy and Immunology-Scan 10/05/23 documented as of this encounter
--- OUTSIDE RECORDS SUMMARY | 2025-03-14 14:43 | XMS_ITS | Encounter Summary ---
Author Organization [facility] Address [address] [place] [address] Care Team Providers Care Product Manufacturing Professional Name Role Phone Lizzie Everett PA-C Primary Care Provi kinsey Mj Soni MD Unavailable Unavailable Adolfo Durant MD Unavailable [phone] Vinicius Solis MD Unavailable [phone] Encounter Details Date Type Department Care Team (Late st Contact Info) Description 10/19/[address] [facility] GASTRO SCAN Gastroenterology, Scan Social [...] on filedocumented in this encounter Care Teams Product Manufacturing Professional Relationship Specialty Start Date End Date Lizzie Everett PA-C [address] [place] [address] PCP - General Internal Medicine 10/12/23 07/28/24 Mj Soni MD [address] [facility] [place] [address] Nephrology 10/12/23 Adolfo Durant MD [address] [place] [address] [address] [place] [address] Referring Provider Obstetrics and Gynecology 10/12/23 Vinicius Soils MD [address] [place] [address] [address] [place] [address] Referring Provider Cardiology-Scan 10/12/23 Elisa Moulton [facility] Nurse Practitioner Sleep Medicine 10/05/23 Ajith Olson Physician Allergy and Immunology-Scan 10/05/23 documented as of this encounter
--- OUTSIDE RECORDS SUMMARY | 2025-03-14 14:43 | XMS_ITS | Encounter Summary ---
Author Organization [facility] Address [address] [place] [address] Care Team Providers Care Strategic Planning Analyst Name Role Phone Lm Larsen MD Primary Care Provider [phone] Encounter Details Date Type Department Care Team (Late st Contact Info) Description 03/01/2025 Results Follow-Up [facility] [address] [place] [phone] Sadi Solano NP [address] [place] [address] Dr Lau [address] [place] [phone] Social History Tobacco Use Types Packs/Day Years [...] Description 05/25/2025 9:10 AM EST Office Visit [facility] [address] [place] [address] Dr [address] [place] [phone] Sadi Solano NP [address] [place] [address] [address] [place] [phone] documented as of this encounter Visit Diagnoses Not on filedocumented in this encounter Care Teams Strategic Planning Analyst Relationship Specialty Start Date End Date Chava, MD Lm [address] [place] [address] Dr [address] [facility] [place] [address] PCP - General Internal Medicine 01/03/25 documented as of this encounter
--- OUTSIDE RECORDS SUMMARY | 2025-03-14 14:43 | XMS_ITS | Patient Health Record ---
Author Organization [facility] Address [address] [place] [address] Care Team Providers Care Animal Park Code Enforcement Officer Name Role Phone Po Lm TAMEZ Primary Care Provider Fernando Xiong Jr Unavailable [phone] Allergies Allergen (clinical drug ingredient) Drug/Non Drug [...] W/U Status Risk Notes Problem Epigastric pain (82804050) Epigastric pain (R10.13) Active confirmed Problem Celiac disease (799229850) Celiac disease (K90.0) Active confirmed Problem Diverticulitis (14173949) Diverticulitis (K57.92) Active confirmed Problem Gastroesophageal reflux disease without esophagitis (462609851) Gastroesophageal reflux disease without esophagitis (K21.9) Active confirmed Problem Fatty liver (582931359) Fatty liver (K76.0) Active confirmed Problem Screening for colon cancer (587752533) Screening for colon cancer (Z12.11) Active confirmed Problem Hepatitis C antibody test positive (104054796) Positive hepatitis C antibody test (R76.8) Active confirmed Problem Irritable bowel syndrome (05486057) Irritable bowel syndrome with both constipation and diarrhea (K58.2) Active confirmed Problem Right upper quadrant pain (462624728) RUQ pain (R10.11) Active confirmed Vital Signs Temperature 99.1 degrees Fahrenheit 07/25/2024 Blood pressure diastolic 01 mm Hg 07/25/2024 Height 66 in 07/25/2024 Blood pressure systolic 001 mm Hg 07/25/2024 Weight 195.6 lbs 07/25/2024 BMI 31.57 kg/m2 07/25/2024 Encounters Encounter Location Date Provider Diagnosis [facility] [address] [place] [phone] 07/25/2024 Fernando Poole Jr Gastroesophageal reflux disease without esophagitis K21.9 ; Irritable bowel syndrome with both constipation and diarrhea K58.2 and Celiac disease K90.0 [facility] [address] [place] [address] 03/14/2024 Fernando Poole Jr Epigastric pain R10.13 [facility] [address] [place] [phone] 09/28/2024 Fernando Poole Jr Assessments Encounter Date [...] Provider Name:Fernando crawford Jr, 06/05/2025 09:20:00 AM, [address] [place] [address], [address], [place], [address], Insurance Providers Payer Name Payer Address Payer Phone Subscriber Number Group Number Insured Name Patient Relationship to Insured Coverage Start Date Coverage End Date [facility] [address] [place] [address] [id number] JUAN J CROSS Self - patient is [...]
--- OUTSIDE RECORDS SUMMARY | 2025-03-14 14:43 | XMS_ITS | Clinical Summary ---
Author Organization [address] [place] [address] [place] [phone] Phone Care Team Providers Care Hand Chain Maker Name Role Phone mL Larsen MD Primary Care Provider [phone] Allergies Active Allergy Reactions Criticality Noted Date [...] trigeminy. Rare couplets and ventricular bigeminy. PVC [place] was 3.5%. Placing a new Holter monitor [...] Description 03/01/2025 8:00 AM EDT Ancillary Procedure [facility] [address] [place] [phone] Palpitations; Multiple premature ventricular complexes 03/01/2025 Results Follow-Up [facility] [address] [place] [address] Sadi Solano NP 02/22/2025 Results Follow-Up [facility] [address] [place] [address] Sadi Solano NP 02/21/2025 10:40 AM EDT Office Visit [facility] [address] [place] [address] Sadi Solano NP Palpitations (Primary Dx); Secondary hypertension; Multiple premature ventricular complexes 02/21/2025 9:00 AM EDT Ancillary Procedure [facility] [address] [place] [address] Palpitations 02/21/[address] [facility] [address] [facility] [address] [place] [address] Vinicius Solis MD 01/25/2025 Telephone [facility] [address] [place] [address] [place] [phone] Sadi Solano NP 01/03/2025 2:30 PM EDT Ancillary Procedure [facility] [address] [place] [phone] Palpitations 01/03/[address] [facility] [address] [place] [address] Vinicius Solis MD from Last 3 Months Surgical History Surgery Date Site/Laterality Comments BREAST LUMPECTOMY 05/11/2012 PROCEDURE: ---- BREAST LUMP BIOPSY ---- LITHOTRIPSY 05/11/2006 PROCEDURE: HISTORICAL LITHOTRIPSY OTHER SURGICAL HISTORY 05/11/2011 PROCEDURE: NE HYSTEROSCOPY DIAGNOSTIC SEPARATE PROCEDURE OTHER SURGICAL HISTORY [...] 05/25/2025 9:10 AM EST Office Visit [facility] [address] [place] [address] CycSadi borges NP [address] [place] [address] Dr Lau [address] [place] [phone] Health Maintenance Due Date Last Done Comments [...] (03/01/2025 8:27 AM EDT) Left [facility] [place] 6.0 cm CV PACS Left [facility] [place] 5.2 cm CV PACS [place] Area Sys [...] 4:06 AM EDT Performed at: 01 - [facility] [id number] Votator Machine Operator: Mala Kaye MD, Phone: [phone] Sadi Solano NP LAB BLOOD ORDERABLES Final Result Performing Organization Address [facility] de Phone Number [facility] 1 * Magnesium (02/21/2025 12:04 PM EDT) Only the most recent of2 resultswithin the time period is included. Magnesium 2.0 1.6 - 2.3 mg/dL [facility] 1 Blood Venous blood specimen / Unknown 02/21/2025 12:04 PM EDT 02/21/2025 Narrative [facility] 1 - 02/22/2025 8:08 AM EDT Performed at: - [facility] [id number] Votator Machine Operator: Mala Kaye MD, Phone: [phone] Sadi Solano NP LAB BLOOD ORDERABLES Final Result Performing Organization Address [facility] de Phone Number [facility] 1 * Basic [...] 02/22/2025 4:06 AM EDT Performed at: - [facility] [id number] Votator Machine Operator: Mala Kaye MD, Phone: [phone] Sadi Solano NP LAB BLOOD ORDERABLES Final Result [facility] 1 * CARDIAC HOLTER MONITOR (REPORT GENERATED IN HOUSE) (02/21/2025 11:33 AM EDT) Anatomical Region Laterality Modality Cardiac Diagnost ic Narrative 02/23/2025 2:14 PM EDT [facility] DIAGNOSTIC TESTING DEPARTMENT [address] [place] [address] TEL: FAX: Type of test: 24 hour Holter Monitor Date of test: 02/21/25 Ordering provider: Vinicius Solano NP Reason for Test: Palpitations PVCA Automatic Embroidery Machine Tender Findings: 1: Normal Sinus Rhythm. 2: Rare [...] 01/16/2025 11:06 PM EDT Performed at: - [address] [id number] Votator Machine Operator: Mala Kaye MD, Phone: [phone] Sadi Solano NP LAB BLOOD ORDERABLES Final [...] PM EDT Performed at: 01 - [facility] [address] [id number] Votator Machine Operator: Mala Kaye MD, Phone: [phone] Sadi Solano INSECTICIDE SUPERVISOR LAB BLOOD ORDERABLES Final Result Performing Organization Address [facility]/ZIP Co de Phone Number [facility] 1 * N-Terminal Probnp (01/16/2025 8:32 AM EDT) [facility] NT-proBNP 67 0 - 287 pg/mL [...] 11:06 PM EDT Performed at: 01 - [facility] [id number] Votator Machine Operator: Mala Kaye MD, Phone: [phone] Sadi Solano NP LAB BLOOD ORDERABLES Final Result Performing Organization Address [facility] Co de Phone Number [facility] 1 * CARDIAC HOLTER MONITOR (REPORT GENERATED IN HOUSE) (01/03/2025 2:42 PM EDT) Anatomical Region Laterality Modality Cardiac Diagnost ic Narrative 01/13/2025 9:56 AM EDT [facility] DIAGNOSTIC TESTING DEPARTMENT [address] [place] [address], [place] [address] TEL: FAX: Type of Test: 24 Hour Holter Monitor Date of Test: 01/03/2025 Ordering Provider: Sadi Solano NP Reason for Test: Palpitations Impression: 1: Normal Sinus Rhythm. 2: Rare PACs. 3: Frequent PVCs and ventricular trigeminy. Rare couplets and ventricular bigeminy. PVC [place] was 3.5%. 4: No significant pause noted, longest R-R was 1.4 seconds at 7:33 AM. 5: Diary returned with symptoms of palpitations noted. EKG at those times showed Normal Sinus Rhythm and frequent isolated PVCs and ventricular trigeminy. Heart rates were in the range of 86-96 bpm. Sadi Solano INSECTICIDE SUPERVISOR CV CARDIAC SERVICES PROCEDU RES Final Result from Last 3 Months Insurance [facility] Care Teams Hand Chain Maker Relationship Specialty Start Date End Date Lm Larsen MD [address] [place] [address] [address] [facility] [place] [address] PCP - General Internal Medicine 01/03/25
--- OUTSIDE RECORDS SUMMARY | 2025-03-14 14:43 | XMS_ITS | Clinical Summary ---
Author Organization [facility] Address [address] [place] [phone] Phone Care Team Providers Care Fireworks Maker Name Role Phone Lizzie Everett Primary Care Provider [phone] Allergies Active Allergy Reactions Criticality Noted Date [...] AND CALL 911 06/11/19 22 Active Multiple Vitamins-[place] als (CENTRUM SILVER 50+WOMEN PO) Take 1 [...] Of [place] [address] [place] [address] Mj Soni MD 01/11/2025 Refill [facility] [place] [address] [place] [address] Ok Solis MD from Last [...] Visit [facility] [address] [phone] Mj Soni MD [address] [address] Health Maintenance Due Date Last [...] Insurance Comprehensive Benefits Comprehensive Benefits Care Teams Fireworks Maker Relationship Specialty Start Date End Date Lizzie Everett PA [address] [place] [address] PCP - General Physician Sales Representative 06/30/22
== END 2025-03-14 11:54 | disposition home or self-care (01) ==
LOC: HO.XRAY 11:53
PROVIDERS: PCP Internal Medicine; Visit Provider Internal Medicine
DX: M25.551 Pain in right hip (principal); M25.552 Pain in left hip; M54.50 Low back pain, unspecified
CPT/HCPCS: 72100; 73521

== ENCOUNTER → 2025-03-14 11:59 | Outpatient (BNV) | payer BC, SELFPAY | PROVIDERS: PCP Internal Medicine; Visit Provider Radiology Diagnostic Radiology | DX: M16.0 Bilateral primary osteoarthritis of hip (principal); M51.27 Other intervertebral disc displacement, lumbosacral region | CPT/HCPCS: 72100; 73521 ==